=== PATIENT | female | born 1965 | race African-American/Black ===

== ENCOUNTER 2020-06-10 17:45 | Inpatient (IN) | payer OTHER ==
[~2020-06-10] VITALS: Ht 162.6 cm; Wt 59.0 kg
--- NOTE | 2020-06-10 18:24 | Emergency Room Report ---
History of Present Illness General Chief Complaint: General Complaint Source: Patient Present Illness HPI Disclaimer: Please note that this report is being documented using DRAGON technology. This can lead to erroneous entry secondary to incorrect interpretation by the dictating instrument. HPI: 55-year-old female history of hypertension presents for generalized weakness. She states she has been feeling rundown and generally weak for a few days. Denies pain of any kind. Denies fever, chills, nausea, vomiting, diarrhea, dysuria, hematuria. Reports a nonproductive cough which is been present for some time but cannot specify how long. Sometimes present with mucus. She does smoke. Drinks alcohol regularly but states she did not have any today. Denies drug use. 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 EOMI. Cardiovascular: RRR. S1 and S2 normal. No murmur appreciated Resp: Normal work of breathing. No cough, wheezing or crackles appreciated Abdomen: Abdomen is soft, nondistended. Nontender. Firm stool in rectal vault. No blood. No melena. Skin: Intact. No abrasions, laceration or rash over the exposed skin MSK: Normal tone and bulk. Moving all extremities. No obvious deformity. Neuro: Awake and alert. Mentating appropriately. Procedures Critical Care Time Critical Care Time Total critical care time: Approximately 45 minutes Due to a high probability of clinically significant, life threatening deterioration, the patient required the highest level of preparedness to intervene emergently and I personally spent this critical care time directly and personally managing the patient. This critical care time included obtaining a history, examining the patient, pulse oximetry, ordering and reviewing studies, ordering treatments, evaluating response to treatment and updating management plan as needed, frequent reassessment and discussion with other providers as well as arranging for ultimate disposition. This critical to care time was performed to assess and manage the high probability of life-threatening deterioration that could result in multiorgan failure. This critical care time is separate from the separately billable procedures and treating other patients. Medical Decision Making Diagnostic Impression: Primary Impression: Anemia Additional Impression: Hypokalemia ER Course 55-year-old female presents for generalized weakness. Differential includes not limited to dehydration, electrolyte abnormality, occult ischemia, UTI, alcohol use, drug use, pneumonia, viral syndrome among others. EKG is nonischemic. Chest x-ray does not show obvious infiltrate. Patient found to be anemic with a hemoglobin of 7.4. Is a macrocytic anemia. Patient states she takes vitamins and has never had an issue with anemia. Denies melena, hematochezia or bleeding of any kind. Denies prior transfusions. We will transfuse blood and patient will require supplementation potassium as well as her potassium level is low. Remainder labs within normal limits. Will arrange for admission. Laboratory Tests Test 06/10/20 18:39 White Blood Count 5.9 K/UL (4.8-10.8) Red Blood Count 2.24 M/UL (4.20-5.40) L Hemoglobin 7.4 G/DL (12.0-16.0) L Hematocrit 22.5 % (37.0-47.0) L Mean Corpuscular Volume 101 FL (80-99) H Mean Corpuscular Hemoglobin 33.2 PG (27.0-31.0) H Mean Corpuscular Hemoglobin Concent 33.0 G/DL (32.0-36.0) Red Cell Distribution Width 18.0 % (11.6-14.8) H Platelet Count 200 K/UL (150-450) Mean Platelet Volume 6.3 FL (6.5-10.1) L Neutrophils (%) (Auto) % (45.0-75.0) Lymphocytes (%) (Auto) % (20.0-45.0) Monocytes (%) (Auto) % (1.0-10.0) Eosinophils (%) (Auto) % (0.0-3.0) Basophils (%) (Auto) % (0.0-2.0) Differential Total Cells Counted 100 Neutrophils % (Manual) 69 % (45-75) Lymphocytes % (Manual) 26 % (20-45) Monocytes % (Manual) 5 % (1-10) Eosinophils % (Manual) 0 % (0-3) Basophils % (Manual) 0 % (0-2) Band Neutrophils 0 % (0-8) Platelet Estimate Adequate Platelet Morphology Normal Hypochromasia 1+ Anisocytosis 1+ Macrocytosis 1+ Sodium Level 136 MMOL/L (136-145) Potassium Level 2.5 MMOL/L (3.5-5.1) *L Chloride Level 98 MMOL/L (98-107) Carbon Dioxide Level 22 MMOL/L (21-32) Anion Gap 16 mmol/L (5-15) H Blood Urea Nitrogen 6 mg/dL (7-18) L Creatinine 0.7 MG/DL (0.55-1.30) Estimated Glomerular Filtration Rate > 60 mL/min (>60) Glucose Level 89 MG/DL (74-106) Calcium Level 8.4 MG/DL (8.5-10.1) L Iron Level Pending Unsaturated Iron Binding Pending Total Bilirubin 1.0 MG/DL (0.2-1.0) Aspartate Amino Transferase (AST) 64 U/L (15-37) H Alanine Aminotransferase (ALT) 41 U/L (12-78) Alkaline Phosphatase 207 U/L (46-116) H Troponin I 0.013 ng/mL (0.000-0.056) Total Protein 5.4 G/DL (6.4-8.2) L Albumin 1.7 G/DL (3.4-5.0) L Globulin 3.7 g/dL Albumin/Globulin Ratio 0.5 (1.0-2.7) L Serum Alcohol < 3 mg/dL EKG Diagnostic Results Troponin ordered: Yes When was troponin ordered?: Jun 10, 2020 EKG Time: 19:01 Rate: bradycardiac Rhythm: NSR ST Segments: no acute changes Other Impression Sinus rhythm, normal axis, normal intervals, no ST segment changes. Rhythm Strip Diag. Results Rhythm Strip Time: 09:01 EP Interpretation: yes Rate: 59 Rhythm: NSR, no PVC's, no ectopy Chest X-Ray Diagnostic Results Chest X-Ray Diagnostic Results : Chest X-Ray Ordered: Yes # of Views/Limited/Complete: 1 View Indication: Other - Weakness EP Interpretation: Yes Interpretation: no consolidation, no effusion, no pneumothorax, no acute ca rdiopulmonary disease Impression: No acute disease Electronically Signed by: Electronically signed by Dr. Carlitos Marley MD Last Vital Signs Date Time Temp Pulse Resp B/P (MAP) Pulse Ox O2 Delivery O2 Flow Rate FiO2 06/10/20 18:02 98.1 78 18 100/70 (80) 98 Room Air Disposition: ADMITTED INPATIENT Condition: Serious Carliots Marley MD Jun 10, 2020 18:24
[2020-06-10 19:05] LABS: HEMATOCRIT 22.5 % (37.0-47.0); HEMOGLOBIN 7.4 G/DL (12.0-16.0); MEAN CORPUSCULAR VOLUME 101 FL (80-99); PLATELET COUNT 200 K/UL (150-450); RED BLOOD COUNT 2.24 M/UL (4.20-5.40); WHITE BLOOD COUNT 5.9 K/UL (4.8-10.8)
[2020-06-10 19:21] LABS: ALANINE AMINOTRANSFERASE 41 U/L (12-78); ALBUMIN 1.7 G/DL (3.4-5.0); ALBUMIN/GLOBULIN RATIO 0.5 (1.0-2.7); ALKALINE PHOSPHATASE 207 U/L (46-116); ANION GAP 16 mmol/L (5-15); ASPARTATE AMINO TRANSFERASE 64 U/L (15-37); BLOOD UREA NITROGEN 6 mg/dL (7-18); CALCIUM 8.4 MG/DL (8.5-10.1); CARBON DIOXIDE 22 MMOL/L (21-32); CHLORIDE 98 MMOL/L (98-107); CREATININE 0.7 MG/DL (0.55-1.30); SODIUM 136 MMOL/L (136-145)
[2020-06-10 19:23] LABS: POTASSIUM 2.5 MMOL/L (3.5-5.1)
--- NOTE | 2020-06-10 19:28 | NUR ---
55-year-old female history of hypertension presents for generalized weakness. She states she has been feeling rundown and generally weak for a few days. Denies pain of any kind. Denies fever, chills, nausea, vomiting, diarrhea, dysuria, hematuria. Reports a nonproductive cough which is been present for some time but cannot specify how long. Sometimes present with mucus. She does smoke. Drinks alcohol regularly but states she did not have any today. Denies drug use. PMH: Hypertension
[2020-06-10 21:33] VITALS: BP 110/68
[2020-06-10 21:52] LABS: % IRON SATURATION 82 % (15-50); IRON 83 ug/dL (50-175); TOTAL IRON BINDING CAPACITY 101 ug/dL (250-450)
--- NOTE | 2020-06-10 22:05 | NUR ---
ED Nurse Note: Caroline brought in for generalized weakness, admitted to telemtry for anemia and hypokalemia, all labs sent, patient is AOx4, ambulatory, tachycardic, all other vitals stable, patient sent to floor with all personal belongings, refused to allow me to count money, all belongings listed, form signed by patient and RN, report given to MAK Torres RN informed that patient was in room MAK Torres was not present when patient arrived to floor, patient was placed in bed rails up, stable no complaints
--- NOTE | 2020-06-10 23:08 | NUR ---
NURSE NOTES: Received patient in bed, awake, alert, oriented x4, able to make her needs known, IV site is clean dry and intact. Oriented patient to the room, call light within reach, bed is lowered, locked, alarm is on. Patient can ambulate with steady gate. Belongings list been verified, signed for, patient refused for her money to be counted. Reached out to MD for admit orders. Will continue to monitor for comfort and safety.
[2020-06-11 00:07] VITALS: BP 110/78
--- NOTE | 2020-06-11 00:55 | NUR ---
received admit orders from Dr Kerr, per MD consult with Dr Solares about blood transfusions. Attempted multiple times to reach Dr Solares, unsuccessfully. CN was made aware.
[2020-06-11 04:13] VITALS: BP 100/74
--- NOTE | 2020-06-11 06:24 | Consultation ---
History of Present Illness General Chief Complaint: General Complaint Present Illness Allergies: Coded Allergies: No Known Allergies (Unverified , 06/10/20) Patient History Healthcare decision maker Resuscitation status Advanced Directive on File Physical Exam Last 24 Hour Vital Signs Date Time Temp Pulse Resp B/P (MAP) Pulse Ox O2 Delivery O2 Flow Rate FiO2 06/11/20 04:14 68 06/11/20 04:13 98.5 79 20 100/74 (83) 97 06/11/20 00:10 86 06/11/20 00:07 97.1 74 18 110/78 (89) 98 06/10/20 23:45 Room Air 06/10/20 21:33 98.1 102 20 110/68 98 Room Air 06/10/20 19:25 Room Air 06/10/20 18:02 98.1 78 18 100/70 (80) 98 Room Air Laboratory Tests Test 06/10/20 18:39 06/10/20 21:46 White Blood Count 5.9 K/UL (4.8-10.8) Red Blood Count 2.24 M/UL (4.20-5.40) L Hemoglobin 7.4 G/DL (12.0-16.0) L Hematocrit 22.5 % (37.0-47.0) L Mean Corpuscular Volume 101 FL (80-99) H Mean Corpuscular Hemoglobin 33.2 PG (27.0-31.0) H Mean Corpuscular Hemoglobin Concent 33.0 G/DL (32.0-36.0) Red Cell Distribution Width 18.0 % (11.6-14.8) H Platelet Count 200 K/UL (150-450) Mean Platelet Volume 6.3 FL (6.5-10.1) L Neutrophils (%) (Auto) % (45.0-75.0) Lymphocytes (%) (Auto) % (20.0-45.0) Monocytes (%) (Auto) % (1.0-10.0) Eosinophils (%) (Auto) % (0.0-3.0) Basophils (%) (Auto) % (0.0-2.0) Differential Total Cells Counted 100 Neutrophils % (Manual) 69 % (45-75) Lymphocytes % (Manual) 26 % (20-45) Monocytes % (Manual) 5 % (1-10) Eosinophils % (Manual) 0 % (0-3) Basophils % (Manual) 0 % (0-2) Band Neutrophils 0 % (0-8) Platelet Estimate Adequate Platelet Morphology Normal Hypochromasia 1+ Anisocytosis 1+ Macrocytosis 1+ Sodium Level 136 MMOL/L (136-145) Potassium Level 2.5 MMOL/L (3.5-5.1) *L Chloride Level 98 MMOL/L (98-107) Carbon Dioxide Level 22 MMOL/L (21-32) Anion Gap 16 mmol/L (5-15) H Blood Urea Nitrogen 6 mg/dL (7-18) L Creatinine 0.7 MG/DL (0.55-1.30) Estimat Glomerular Filtration Rate > 60 mL/min (>60) Glucose Level 89 MG/DL (74-106) Calcium Level 8.4 MG/DL (8.5-10.1) L Iron Level 83 ug/dL (50-175) Total Iron Binding Capacity 101 ug/dL (250-450) L Percent Iron Saturation 82 % (15-50) H Unsaturated Iron Binding 18 ug/dL (112-346) L Total Bilirubin 1.0 MG/DL (0.2-1.0) Aspartate Amino Transf (AST/SGOT) 64 U/L (15-37) H Alanine Aminotransferase (ALT/SGPT) 41 U/L (12-78) Alkaline Phosphatase 207 U/L (46-116) H Troponin I 0.013 ng/mL (0.000-0.056) Total Protein 5.4 G/DL (6.4-8.2) L Albumin 1.7 G/DL (3.4-5.0) L Globulin 3.7 g/dL Albumin/Globulin Ratio 0.5 (1.0-2.7) L Serum Alcohol < 3 mg/dL Stool Occult Blood Negative (NEGATIVE) Height (Feet): 5 Height (Inches): 4.00 Weight (Pounds): 130 Assessment/Plan Assessment/Plan: Hematology Consultation REQ : Tesha Ward RFC: Anemia eval DOS: 06/11/2020 ID 55-year-old female history of hypertension presents for generalized weakness. She states she has been feeling rundown and generally weak for a few days. Denies pain of any kind. Denies fever, chills, nausea, vomiting, diarrhea, dysuria, hematuria. Reports a nonproductive cough which is been present for some time but cannot specify how long. Sometimes present with mucus. She does smoke. Drinks alcohol regularly but states she did not have any today. Denies drug use. noted to have anemia, is now s/p several units of prbc and repeat cbc is pending. 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 EOMI. Cardiovascular: RRR. S1 and S2 normal. No murmur appreciated Resp: Normal work of breathing. No cough, wheezing or crackles appreciated Abdomen: Abdomen is soft, nondistended. Nontender. Skin: Intact. No abrasions, laceration or rash over the exposed skin MSK: Normal tone and bulk. Moving all extremities. No obvious deformity. Neuro: Awake and alert. Mentating appropriately. Labs: reviewed Imaging: Chest X-Ray Ordered: Yes # of Views/Limited/Complete: 1 View Indication: Other - Weakness EP Interpretation: Yes Interpretation: no consolidation, no effusion, no pneumothorax, no acute cardiopulmonary disease Assessment and recs # Anemia r/o gi bleed, thus far occult pending --> per patient does not have any recent bleeding --> hgb 7.4 -> transfuse prn basis --> anemia panel has been reviewed, results pending --> no hemolysis is noted --> 2 units prbc in 06/10 # Hypokalemia --> k has been repleted --> as per renal care # Generalized weakness. --> is likely due to above -> pt as needed and ot # Dvt ppx scds Appreciate consultation and Alon Aden Rn, MD Jun 11, 2020 06:24
--- NOTE | 2020-06-11 07:24 | NUR ---
NURSE HAND-OFF REPORT: Important Events on Shift: received 1 unit PRBC per MD order. Tolerated well, no reaction noted Patient Status: full Diet: NPO Pending Orders: Pending Results/Labs: Pending MD notification: Latest Vital Signs: Temperature 98.5 , Pulse 68 , B/P 100 /74 , Respiratory Rate 20 , O2 SAT 97 , Room Air, O2 Flow Rate . Vital Sign Comment: EKG Rhythm: Sinus Rhythm Rhythm change?: N MD Notified?: - MD Response: Latest Ortiz Fall Score: 20 Fall Risk: Low Risk Safety Measures: Call light Within Reach, Bed Alarm Zone 1, Side Rails Side Rails x1, Bed position Low and Locked. Fall Precautions: Report given to Jolynn CORADO
[2020-06-11 07:40] LABS: EOSINOPHILS % (AUTO) 0.7 % (0.0-3.0); HEMATOCRIT 26.7 % (37.0-47.0); LYMPHOCYTES % (AUTO) 40.2 % (20.0-45.0); MEAN CORPUSCULAR VOLUME 96 FL (80-99); MONOCYTES % (AUTO) 11.1 % (1.0-10.0); NEUTROPHILS % (AUTO) 46.9 % (45.0-75.0); PLATELET COUNT 175 K/UL (150-450); RED BLOOD COUNT 2.77 M/UL (4.20-5.40); RED CELL DISTRIBUTION WIDTH 16.3 % (11.6-14.8); WHITE BLOOD COUNT 5.4 K/UL (4.8-10.8)
[2020-06-11 08:00] VITALS: BP 89/61
--- NOTE | 2020-06-11 08:01 | NUR ---
NURSE NOTES: Received patient report from MAK Zhu. Patient is AO x3 awake and able to make needs known. Patient shows no signs of distress or pain at the time. Patient is on room air and shows no signs of respiratory distress. IV is intact and patent. There are no signs of erythema, infiltration, or bleeding. Asked patient about home medications and patient said she does not remember what she takes and has no one to give us a list. Patient is currently NPO. Bed is in the lowest position, call light is within reach, side rails up x3. Will continue to monitor.
[2020-06-11 08:09] LABS: ALANINE AMINOTRANSFERASE 35 U/L (12-78); ALBUMIN 1.5 G/DL (3.4-5.0); ALBUMIN/GLOBULIN RATIO 0.5 (1.0-2.7); ALKALINE PHOSPHATASE 175 U/L (46-116); ANION GAP 12 mmol/L (5-15); ASPARTATE AMINO TRANSFERASE 49 U/L (15-37); BLOOD UREA NITROGEN 8 mg/dL (7-18); CALCIUM 8.1 MG/DL (8.5-10.1); CARBON DIOXIDE 26 MMOL/L (21-32); CHLORIDE 103 MMOL/L (98-107); CREATININE 0.6 MG/DL (0.55-1.30); SODIUM 140 MMOL/L (136-145)
[2020-06-11 08:11] LABS: POTASSIUM 2.5 MMOL/L (3.5-5.1)
--- NOTE | 2020-06-11 08:30 | General Progress Note ---
Subjective Allergies: Coded Allergies: No Known Allergies (Unverified , 06/10/20) Objective Last 24 Hour Vital Signs Date Time Temp Pulse Resp B/P (MAP) Pulse Ox O2 Delivery O2 Flow Rate FiO2 06/11/20 04:14 68 06/11/20 04:13 98.5 79 20 100/74 (83) 97 06/11/20 00:10 86 06/11/20 00:07 97.1 74 18 110/78 (89) 98 06/10/20 23:45 Room Air 06/10/20 21:33 98.1 102 20 110/68 98 Room Air 06/10/20 19:25 Room Air 06/10/20 18:02 98.1 78 18 100/70 (80) 98 Room Air Laboratory Tests 06/10/20 18:39: White Blood Count 5.9, Red Blood Count 2.24L, Hemoglobin 7.4L, Hematocrit 22.5L, Mean Corpuscular Volume 101H, Mean Corpuscular Hemoglobin 33.2H, Mean Cor puscular Hemoglobin Concent 33.0, Red Cell Distribution Width 18.0H, Platelet Count 200, Mean Platelet Volume 6.3L, Neutrophils (%) (Auto) , Lymphocytes (%) (Auto) , Monocytes (%) (Auto) , Eosinophils (%) (Auto) , Basophils (%) (Auto) , Differential Total Cells Counted 100, Neutrophils % (Manual) 69, Lymphocytes % (Manual) 26, Monocytes % (Manual) 5, Eosinophils % (Manual) 0, Basophils % (Manual) 0, Band Neutrophils 0, Platelet Estimate Adequate, Platelet Morphology Normal, Hypochromasia 1+, Anisocytosis 1+, Macrocytosis 1+, Sodium Level 136, Potassium Level 2.5*L, Chloride Level 98, Carbon Dioxide Level 22, Anion Gap 16H , Blood Urea Nitrogen 6L, Creatinine 0.7, Estimat Glomerular Filtration Rate > 60, Glucose Level 89, Calcium Level 8.4L, Iron Level 83, Total Iron Binding Capacity 101L, Percent Iron Saturation 82H, Unsaturated Iron Binding 18L, Total Bilirubin 1.0, Aspartate Amino Transf (AST/SGOT) 64H, Alanine Aminotransferase (ALT/SGPT) 41, Alkaline Phosphatase 207H, Troponin I 0.013, Total Protein 5.4L, Albumin 1.7L, Globulin 3.7, Albumin/Globulin Ratio 0.5L, Serum Alcohol < 3 06/10/20 21:46: Stool Occult Blood Negative 06/11/20 06:11: White Blood Count 5.4, Red Blood Count 2.77L, Hemoglobin 9.0L, Hematocrit 26.7L, Mean Corpuscular Volume 96, Mean Corpuscular Hemoglobin 32.3H, Mean Corpuscular Hemoglobin Concent 33.6, Red Cell Distribution Width 16.3H, Platelet Count 175, Mean Platelet Volume 6.5, Neutrophils (%) (Auto) 46.9, Lymphocytes (%) (Auto) 40.2, Monocytes (%) (Auto) 11.1H, Eosinophils (%) (Auto) 0.7, Basophils (%) (Auto) 1.0, Sodium Level 140, Potassium Level 2.5*L, Chloride Level 103, Carbon Dioxide Level 26, Anion Gap 12, Blood Urea Nitrogen 8, Creatinine 0.6, Estimat Glomerular Filtration Rate > 60, Glucose Level 63L, Calcium Level 8.1L, Total Bilirubin 1.0, Aspartate Amino Transf (AST/SGOT) 49H, Alanine Aminotransferase (ALT/SGPT) 35, Alkaline Phosphatase 175H, Total Protein 4.8L, Albumin 1.5L, Globulin 3.3, Albumin/Globulin Ratio 0.5L, Ferritin [Pending], Vitamin B12 Level [Pending], Folate [Pending] Height (Feet): 5 Height (Inches): 4.00 Weight (Pounds): 130 Assessment/Plan Assessment/Plan: GI CONSULT Assessment - Anemia - OB (-) stools - H/o HTN - Hypokalemia Recommendations - replace K IV and PO - follow H&H - EGD/colon later this week, once K level improved Thank you Ezekiel Quintana MD Jun 11, 2020 08:30
[2020-06-11] MEDS: D5 1/2NS w/KCl 20mEq 1,000 ML IV SCH ×2 (09:26→23:42)
[2020-06-11 09:48] LABS: PHOSPHORUS 2.3 MG/DL (2.5-4.9)
[2020-06-11] MEDS ORDERED: Acetaminophen 500mg (ES) tab ORAL PRN (11:30)
[2020-06-11 12:00] VITALS: BP 104/74
--- NOTE | 2020-06-11 12:44 | History and Physical Report ---
DATE OF ADMISSION: 06/10/2020 HISTORY OF PRESENT ILLNESS: The patient is admitted for anemia and also severe hypokalemia. The patient states that she fell but did not pass out about two days ago. The patient was complaining of weakness and fatigue and was found to have severe anemia and severe hypokalemia. Denies any rectal bleeding. Denies headache. Denies fever or chills. Denies shortness of breath. Denies cough. Denies history of rectal bleeding. Denies history of . PAST MEDICAL HISTORY: None. PAST SURGICAL HISTORY: None. MEDICATIONS: None. ALLERGIES: No known allergies. FAMILY HISTORY: Noncontributory. SOCIAL HISTORY: The patient has history of smoking, has history of drug abuse. Denies history of alcohol abuse. REVIEW OF SYSTEMS: HEENT: Denies headaches. RESPIRATORY: Denies shortness of breath. Denies cough. CARDIOVASCULAR: Denies chest pain. GASTROINTESTINAL: Denies rectal bleeding. Denies abdominal pain. Denies nausea, vomiting. EXTREMITIES: Denies pain. CENTRAL NERVOUS SYSTEM: Reports generalized weakness and fall due to presyncope and weakness. Denies headache. PHYSICAL EXAMINATION: VITAL SIGNS: Temperature 97.1, pulse 74, blood pressure 110/78. HEENT: PERRLA. CHEST: Clear to auscultation CARDIOVASCULAR: Regular rate and rhythm. No murmurs or extra sounds. GASTROINTESTINAL: Soft, nontender, nondistended. No organomegaly. EXTREMITIES: No edema. Dorsalis pedal pulses are present. Has generalized weakness. CENTRAL NERVOUS SYSTEM: Cranial nerves II through XII are intact. Reflexes equal in both sides. LABORATORY AND DIAGNOSTIC DATA: WBC of 5.9, hemoglobin 7.4, platelets of 200. Sodium is 140, potassium of 2.5, BUN of 8, creatinine of 0.6. ASSESSMENT AND PLAN: Severe hypokalemia, severe anemia, status post presyncope, denies history of GI bleed. I have asked Dr. Abraham as well as Dr. Alon Solares, Dr. Mosley to help with the management of the severe hypokalemia and workup of the anemia will also be deferred to Dr. Abraham as well as Dr. Solares. Transfusion per Dr. Solares. Tesha Kerr M.D. DR: Cami JOB#: [id number] CC:
--- NOTE | 2020-06-11 14:13 | Consultation ---
Consult Note Consult Note I am asked to evaluate the patient at the request of for fluid and electrolyte management HPI: 55-year-old female history of hypertension presents for generalized weakness. She states she has been feeling rundown and generally weak for a few days. Denies pain of any kind. Denies fever, chills, nausea, vomiting, diarrhea, dysuria, hematuria. Reports a nonproductive cough which is been present for some time but cannot specify how long. Sometimes present with mucus. She does smoke. Drinks alcohol regularly but states she did not have any today. Denies drug use. 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 HEAD AND NECK: No JVD. LUNGS: Clear. CARDIOVASCULAR: Regular S1 and S2 with no gallop or murmur. ABDOMEN: Soft. EXTREMITIES: No pitting edema. LABORATORY DATA: Labs show white count of 6.1, hemoglobin was low at 7.4, currently 8.4, and platelet count is 207. Sodium 137, potassium 4.0, BUN of 4, creatinine 0.7. Glucose is negative. BNP 336. The patient's troponin was negative. . Assessment/Plan Severe hypokalemia Severe anemia Malnutrition, hypoalbuminemia Low phosphorus low magnesium Replacement of the potassium, magnesium, phosphorus per order Urine for analysis and urine for tox screen Replace folate and thiamine orally Continue to monitor electrolytes and renal parameters Per orders Byron Mosley MD Jun 11, 2020 14:12
--- NOTE | 2020-06-11 14:45 | NUR ---
NURSE NOTES: Patient has been asked since the AM to produce urine for urinalysis but she has not been able to yet.
--- NOTE | 2020-06-11 15:45 | Cardiology Report ---
APPROVED REPORT EKG Measurement Heart [id number] <Conclusion> Sinus bradycardia Abnormal ECG
[2020-06-11 16:00] VITALS: BP 101/73
[2020-06-11] MEDS ORDERED: Potassium Phosphate 20 MM in NS 275 ML IV ONE (16:00)
--- NOTE | 2020-06-11 16:13 | Diagnostic Imaging Report ---
Indication: Cough Technique: One view of the chest Comparison: none Findings: A calcified granuloma is seen in the right mid to lower lung. The lungs and pleural spaces are clear otherwise. The heart size is normal. Impression: Evidence old granulomatous disease No acute process
[2020-06-11] MEDS: Thiamine 100mg tab ORAL SCH (16:43)
[2020-06-11 17:11] LABS: APPEARANCE,URINE CLOUDY; BILIRUBIN, URINE 2+ (NEGATIVE); COLOR,URINE BROWN; GLUCOSE, URINE (UA) NEGATIVE (NEGATIVE); KETONES,URINE 3+ (NEGATIVE); LEUKOCYTE ESTERASE ,URINE 2+ (NEGATIVE); NITRITE,URINE POSITIVE (NEGATIVE); PH,URINE 6 (4.5-8.0); PROTEIN,URINE 2+ (NEGATIVE); UROBILINOGEN,URINE 12 MG/DL (0.0-1.0)
[2020-06-11 18:13] LABS: ANION GAP 9 mmol/L (5-15); BLOOD UREA NITROGEN 8 mg/dL (7-18); CALCIUM 8.2 MG/DL (8.5-10.1); CARBON DIOXIDE 26 MMOL/L (21-32); CHLORIDE 99 MMOL/L (98-107); CREATININE 0.6 MG/DL (0.55-1.30); POTASSIUM 3.7 MMOL/L (3.5-5.1); SODIUM 134 MMOL/L (136-145)
--- NOTE | 2020-06-11 18:29 | Consultation ---
DATE OF CONSULTATION: 06/11/2020 GASTROENTEROLOGY CONSULTATION CONSULTING PHYSICIAN: Ezekiel Abraham MD CHIEF COMPLAINT: I was asked to see this patient by Dr. Tesha West for evaluation of severe anemia. HISTORY OF PRESENT ILLNESS: The patient is a 55-year-old woman who was brought into the hospital due to weakness. Her potassium is extremely low and she is being replaced. She also has been found to have significant anemia. She denies any abdominal pain, nausea, vomiting, heartburn, or hematochezia. She has had decreased oral intake for a few days. She has not had a colonoscopy or endoscopy in the past. PAST MEDICAL HISTORY: Otherwise unremarkable. FAMILY HISTORY: Positive for colon cancer in brother. SOCIAL HISTORY: Patient smokes occasionally and drinks occasionally. ALLERGIES: None. REVIEW OF SYSTEMS: Otherwise negative. PHYSICAL EXAMINATION: GENERAL: A thin woman, seen in her room. HEENT: Normocephalic and atraumatic. NECK: Supple. CHEST: Clear to auscultation. CARDIOVASCULAR: Revealed a regular rate. ABDOMEN: Soft, nontender. EXTREMITIES: Revealed no edema. LABORATORY DATA: Noted. ASSESSMENT: This patient presents with severe hypokalemia, which is likely cause of her weakness. It should be replaced both intravenous and orally and I will start this. From a gastrointestinal standpoint, she does need endoscopy and colonoscopy to evaluate her complete GI tract. This is more important especially with family history of colon cancer in brother. Once the patient has been electrolyte repleted and stabilized, then she can undergo gastrointestinal preparation for endoscopy and colonoscopy. This can be done either as an inpatient or as an outpatient. RECOMMENDATIONS: Per above discussion and per orders written in the chart. Thank you for asking me to participate in the care of this patient. Ezekiel Abraham M.D. DR: TONY JOB#: [id number] CC:
--- NOTE | 2020-06-11 19:29 | NUR ---
NURSE HAND-OFF REPORT: Important Events on Shift:[Patient got Magnesium and Potasium as ordered. Urine collected for Urinalysis. New IV started] Patient Status: [Full code] Diet: Regular[] Pending Orders: [] Pending Results/Labs:[] Pending MD notification:[] Latest Vital Signs: Temperature 97.7 , Pulse 78 , B/P 101 /73 , Respiratory Rate 20 , O2 SAT 100 , Room Air, O2 Flow Rate . Vital Sign Comment: [] EKG Rhythm: Sinus Rhythm Rhythm change?: N MD Notified?: - MD Response: Latest Ortiz Fall Score: 20 Fall Risk: Low Risk Safety Measures: Call light Within Reach, Bed Alarm Zone 2, Side Rails Side Rails x2, Bed position Low and Locked. Fall Precautions: Patient Fall Education Report given to [MAK Arboleda].
--- NOTE | 2020-06-11 19:33 | NUR ---
NURSE NOTES: Received report from MAK Neil. Pt is awake, a/ox4, no signs of acute distress noted. No complaints of pain. SR on cardiac surgeon. RR even, unlabored on RA. L FA 22g intact and running Mag 1g. Linens and gowns changed. HOb elevated, side rails x2, call light within reach, bed locked and in lowest position. Will continue plan of care. Will continue to monitor.
[2020-06-11 20:00] VITALS: BP 100/63
--- NOTE | 2020-06-11 22:02 | NUR ---
NURSE NOTES: Assisted pt to the restroom where she had one large brown BM. Will continue to monitor.
[2020-06-12] VITALS: BP 100/69
[2020-06-12 04:00] VITALS: BP 110/64
--- NOTE | 2020-06-12 06:36 | Hematology/Onc Progress Note ---
Assessment/Plan Assessment/Plan Assessment and recs # Anemia r/o gi bleed, thus far occult pending --> per patient does not have any recent bleeding --> hgb 7.4-->8.7 -> transfuse prn basis --> anemia panel has been reviewed, results pending --> no hemolysis is noted --> 2 units prbc in 06/10 # Hypokalemia --> k has been repleted --> as per renal care # Generalized weakness. --> is likely due to above -> pt as needed and ot # Dvt ppx scds Appreciate consultation and dw Rn Subjective Constitutional: Denies: no symptoms, chills, fever, malaise, weakness, other HEENT: Denies: no symptoms, eye pain, blurred vision, tearing, double vision, ear pain, ear discharge, nose pain, nose congestion, throat pain, throat swelling, mouth pain, mouth swelling, other Cardiovascular: Denies: no symptoms, chest pain, edema, irregular heart rate, lightheadedness, palpitations, syncope, other Respiratory: Denies: no symptoms, cough, shortness of breath, SOB with excertion, SOB at rest, sputum, wheezing, other Gastrointestinal/Abdominal: Denies: no symptoms, abdomen distended, abdominal pain, black stools, tarry stools, blood in stool, constipated, diarrhea, difficulty swallowing, nausea, poor appetite, poor fluid intake, rectal bleeding, vomiting, other Endocrine: Denies: no symptoms, excessive sweating, flushing, intolerance to cold, intolerance to heat, increased hunger, increased thirst, increased urine, unexplained weight gain, unexplained weight loss, other Hematologic/Lymphatic: Denies: no symptoms, anemia, easy bleeding, easy bruising, adenopathy, other Allergies: Coded Allergies: No Known Allergies (Unverified , 06/10/20) Subjective 06/12 meds noted, no bleeding, ferritin 987, hgb better Objective Objective Current Medications Medications (Trade) Dose Ordered Sig/He Route PRN Reason Start Time Stop Time Status Last Admin Dose Admin Acetaminophen (Tylenol) 500 mg Q6H PRN ORAL Pain Scale (3-5) 06/11/20 11:30 07/11/20 11:29 06/11/20 12:56 Dextrose/ Electrolytes 1,000 ml @ 75 mls/hr [id number] IV 06/11/20 10:00 07/11/20 09:59 06/11/20 23:42 Folic Acid (Folate) 3 mg DAILY ORAL 06/11/20 16:00 07/11/20 15:59 06/11/20 16:43 Thiamine HCl (Vitamin B1) 100 mg DAILY ORAL 06/11/20 16:00 07/11/20 15:59 06/11/20 16:43 Last 24 Hour Vital Signs Date Time Temp Pulse Resp B/P (MAP) Pulse Ox O2 Delivery O2 Flow Rate FiO2 06/12/20 04:00 74 06/12/20 04:00 97.8 74 18 110/64 (79) 98 06/12/20 00:00 96.8 76 18 100/69 (79) 100 06/12/20 00:00 69 06/11/20 21:00 Room Air 06/11/20 20:00 98.2 74 20 100/63 (75) 97 06/11/20 20:00 68 06/11/20 16:00 97.7 74 20 101/73 (82) 100 06/11/20 16:00 78 06/11/20 13:26 97.6 06/11/20 12:00 97.6 77 20 104/74 (84) 100 06/11/20 12:00 76 06/11/20 09:00 Room Air 06/11/20 08:00 97.8 62 20 89/61 (70) 100 06/11/20 08:00 66 06/11/20 04:14 68 06/11/20 04:13 98.5 79 20 100/74 (83) 97 06/11/20 00:10 86 06/11/20 00:07 97.1 74 18 110/78 (89) 98 06/10/20 23:45 Room Air 06/10/20 21:33 98.1 102 20 110/68 98 Room Air 06/10/20 19:25 Room Air 06/10/20 18:02 98.1 78 18 100/70 (80) 98 Room Air Intake and Output 06/11/20 06/12/20 19:00 07:00 Intake Total 175 ml 870 ml Balance 175 ml 870 ml Intake Oral 100 ml 120 ml IV Total 75 ml 750 ml # Voids 1 2 # Bowel Movements 1 Labs Test 06/10/20 18:39 06/10/20 21:46 06/11/20 06:11 06/11/20 16:00 White Blood Count 5.9 K/UL (4.8-10.8) 5.4 K/UL (4.8-10.8) Red Blood Count 2.24 M/UL (4.20-5.40) 2.77 M/UL (4.20-5.40) Hemoglobin 7.4 G/DL (12.0-16.0) 9.0 G/DL (12.0-16.0) Hematocrit 22.5 % (37.0-47.0) 26.7 % (37.0-47.0) Mean Corpuscular Volume 101 FL (80-99) 96 FL (80-99) Mean Corpuscular Hemoglobin 33.2 PG (27.0-31.0) 32.3 PG (27.0-31.0) Mean Corpuscular Hemoglobin Concent 33.0 G/DL (32.0-36.0) 33.6 G/DL (32.0-36.0) Red Cell Distribution Width 18.0 % (11.6-14.8) 16.3 % (11.6-14.8) Platelet Count 200 K/UL (150-450) 175 K/UL (150-450) Mean Platelet Volume 6.3 FL (6.5-10.1) 6.5 FL (6.5-10.1) Neutrophils (%) (Auto) % (45.0-75.0) 46.9 % (45.0-75.0) Lymphocytes (%) (Auto) % (20.0-45.0) 40.2 % (20.0-45.0) Monocytes (%) (Auto) % (1.0-10.0) 11.1 % (1.0-10.0) Eosinophils (%) (Auto) % (0.0-3.0) 0.7 % (0.0-3.0) Basophils (%) (Auto) % (0.0-2.0) 1.0 % (0.0-2.0) Differential Total Cells Counted 100 Neutrophils % (Manual) 69 % (45-75) Lymphocytes % (Manual) 26 % (20-45) Monocytes % (Manual) 5 % (1-10) Eosinophils % (Manual) 0 % (0-3) Basophils % (Manual) 0 % (0-2) Band Neutrophils 0 % (0-8) Platelet Estimate Adequate Platelet Morphology Normal Hypochromasia 1+ Anisocytosis 1+ Macrocytosis 1+ Sodium Level 136 MMOL/L (136-145) 140 MMOL/L (136-145) Potassium Level 2.5 MMOL/L (3.5-5.1) 2.5 MMOL/L (3.5-5.1) Chloride Level 98 MMOL/L (98-107) 103 MMOL/L (98-107) Carbon Dioxide Level 22 MMOL/L (21-32) 26 MMOL/L (21-32) Anion Gap 16 mmol/L (5-15) 12 mmol/L (5-15) Blood Urea Nitrogen 6 mg/dL (7-18) 8 mg/dL (7-18) Creatinine 0.7 MG/DL (0.55-1.30) 0.6 MG/DL (0.55-1.30) Estimat Glomerular Filtration Rate > 60 mL/min (>60) > 60 mL/min (>60) Glucose Level 89 MG/DL (74-106) 63 MG/DL (74-106) Calcium Level 8.4 MG/DL (8.5-10.1) 8.1 MG/DL (8.5-10.1) Iron Level 83 ug/dL (50-175) Total Iron Binding Capacity 101 ug/dL (250-450) Percent Iron Saturation 82 % (15-50) Unsaturated Iron Binding 18 ug/dL (112-346) Total Bilirubin 1.0 MG/DL (0.2-1.0) 1.0 MG/DL (0.2-1.0) Aspartate Amino Transf (AST/SGOT) 64 U/L (15-37) 49 U/L (15-37) Alanine Aminotransferase (ALT/SGPT) 41 U/L (12-78) 35 U/L (12-78) Alkaline Phosphatase 207 U/L (46-116) 175 U/L (46-116) Troponin I 0.013 ng/mL (0.000-0.056) Total Protein 5.4 G/DL (6.4-8.2) 4.8 G/DL (6.4-8.2) Albumin 1.7 G/DL (3.4-5.0) 1.5 G/DL (3.4-5.0) Globulin 3.7 g/dL 3.3 g/dL Albumin/Globulin Ratio 0.5 (1.0-2.7) 0.5 (1.0-2.7) Serum Alcohol < 3 mg/dL Stool Occult Blood Negative (NEGATIVE) Phosphorus Level 2.3 MG/DL (2.5-4.9) Magnesium Level 1.3 MG/DL (1.8-2.4) Ferritin 987 NG/ML (8-388) Vitamin B12 Level 1907 PG/ML (193-986) Folate 5.0 NG/ML (8.6-58.9) Urine Color Brown Urine Appearance Cloudy Urine pH 6 (4.5-8.0) Urine Specific [place] 1.010 (1.005-1.035) Urine Protein 2+ (NEGATIVE) Urine Glucose (UA) Negative (NEGATIVE) Urine Ketones 3+ (NEGATIVE) Urine Blood 2+ (NEGATIVE) Urine Nitrite Positive (NEGATIVE) Urine Bilirubin 2+ (NEGATIVE) Urine Ictotest Positive (NEGATIVE) Urine Urobilinogen 12 MG/DL (0.0-1.0) Urine Leukocyte Esterase 2+ (NEGATIVE) Urine RBC 2-4 /HPF (0 - 2) Urine WBC 5-10 /HPF (0 - 2) Urine Squamous Epithelial Cells Moderate /LPF (NONE/OCC) Urine Amorphous Sediment Moderate /LPF (NONE) Urine Bacteria Moderate /HPF (NONE) Urine Opiates Screen Negative (NEGATIVE) Urine Barbiturates Screen Negative (NEGATIVE) Phencyclidine (PCP) Screen Negative (NEGATIVE) Urine Amphetamines Screen Negative (NEGATIVE) Urine Benzodiazepines Screen Negative (NEGATIVE) Urine Cocaine Screen Negative (NEGATIVE) Urine Marijuana (THC) Screen Negative (NEGATIVE) Test 06/11/20 17:20 06/12/20 05:20 Sodium Level 134 MMOL/L (136-145) Potassium Level 3.7 MMOL/L (3.5-5.1) Chloride Level 99 MMOL/L (98-107) Carbon Dioxide Level 26 MMOL/L (21-32) Anion Gap 9 mmol/L (5-15) Blood Urea Nitrogen 8 mg/dL (7-18) Creatinine 0.6 MG/DL (0.55-1.30) Estimat Glomerular Filtration Rate > 60 mL/min (>60) Glucose Level 101 MG/DL (74-106) Calcium Level 8.2 MG/DL (8.5-10.1) Height (Feet): 5 Height (Inches): 4.00 Weight (Pounds): 130 Objective General: Awake and alert, nad HEENT: NC/AT. EOMI. Cardiovascular: RRR. S1 and S2 normal. No murmur appreciated Resp: Normal work of breathing. No cough, wheezing or crackles appreciated Abdomen: Abdomen is soft, nondistended. Nontender. Skin: Intact. No abrasions, laceration or rash over the exposed skin MSK: Normal tone and bulk. Moving all extremities. No obvious deformity. Neuro: Awake and alert. Mentating appropriately. Alon Solares MD Jun 12, 2020 06:36
[2020-06-12 06:54] LABS: BASOPHILS % (AUTO) 0.6 % (0.0-2.0); EOSINOPHILS % (AUTO) 1.1 % (0.0-3.0); HEMATOCRIT 25.4 % (37.0-47.0); HEMOGLOBIN 8.7 G/DL (12.0-16.0); LYMPHOCYTES % (AUTO) 34.9 % (20.0-45.0); MEAN CORPUSCULAR VOLUME 94 FL (80-99); MONOCYTES % (AUTO) 9.6 % (1.0-10.0); NEUTROPHILS % (AUTO) 53.8 % (45.0-75.0); PLATELET COUNT 196 K/UL (150-450); RED BLOOD COUNT 2.71 M/UL (4.20-5.40); RED CELL DISTRIBUTION WIDTH 15.9 % (11.6-14.8); WHITE BLOOD COUNT 5.8 K/UL (4.8-10.8)
--- NOTE | 2020-06-12 06:55 | NUR ---
NURSE HAND-OFF REPORT: Important Events on Shift:[No acute events] Patient Status: [Stable] Diet: [Regular] Pending Orders: [] Pending Results/Labs:[] Pending MD notification:[] Latest Vital Signs: Temperature 97.8 , Pulse 74 , B/P 110 /64 , Respiratory Rate 18 , O2 SAT 98 , Room Air, O2 Flow Rate . Vital Sign Comment: [Stable] EKG Rhythm: Sinus Rhythm Rhythm change?: N MD Notified?: - MD Response: Latest Ortiz Fall Score: 20 Fall Risk: Low Risk Safety Measures: Call light Within Reach, Bed Alarm Zone 2, Side Rails Side Rails x2, Bed position Low and Locked. Fall Precautions: Patient Fall Education Report given to [MAK Dubon].
[2020-06-12 06:59] LABS: ALANINE AMINOTRANSFERASE 34 U/L (12-78); ALBUMIN 1.6 G/DL (3.4-5.0); ALBUMIN/GLOBULIN RATIO 0.5 (1.0-2.7); ALKALINE PHOSPHATASE 181 U/L (46-116); ANION GAP 6 mmol/L (5-15); ASPARTATE AMINO TRANSFERASE 49 U/L (15-37); BILIRUBIN,TOTAL 0.9 MG/DL (0.2-1.0); BLOOD UREA NITROGEN 5 mg/dL (7-18); CALCIUM 7.7 MG/DL (8.5-10.1); CARBON DIOXIDE 26 MMOL/L (21-32); CHLORIDE 102 MMOL/L (98-107); CREATININE 0.5 MG/DL (0.55-1.30); POTASSIUM 4.3 MMOL/L (3.5-5.1); SODIUM 134 MMOL/L (136-145)
--- NOTE | 2020-06-12 07:49 | NUR ---
NURSE NOTES: Received report from Nkechi Chirinos RN. Patient sitting in semi-De Anda's position, sleeping, bed in lowest position, side rails up x 3, call light within reach, LFA22 gauge IV running D5 1/2 NS + 20 KCL@75 cc/hour, in no apparent distress.
[2020-06-12 07:58] LABS: CHOLESTEROL 161 MG/DL (< 200); HDL CHOLESTEROL 29 MG/DL (40-60); PHOSPHORUS 3.1 MG/DL (2.5-4.9); TRIGLYCERIDES 91 MG/DL (30-150)
[2020-06-12 08:00] VITALS: BP 98/73
[2020-06-12] MEDS ORDERED: AMLODIPINE BESYL5 MG ORAL (09:03)
[2020-06-12] MEDS ORDERED: VITAMIN B-1100 MG ORAL (09:03)
[2020-06-12] MEDS ORDERED: MULTIVITAMINS1 EAC2 ORAL (09:03)
[2020-06-12] MEDS ORDERED: OMEPRAZOLE20 M2 ORAL (09:03)
[2020-06-12] MEDS ORDERED: FOLIC ACID1 MG ORAL (09:03)
[2020-06-12] MEDS: Midodrine 10mg tab ORAL SCH ×3 (09:26→17:23)
[2020-06-12] MEDS: Thiamine 100mg tab ORAL SCH (09:26)
--- NOTE | 2020-06-12 09:46 | NUR ---
RADIOLOGY DEPT.,CHEST X-RAY DONE.-P.DYE
--- NOTE | 2020-06-12 11:18 | NUR ---
NURSE NOTES: Provoding albumin IV wide open.
[2020-06-12 12:00] VITALS: BP 103/67
--- NOTE | 2020-06-12 13:31 | Diagnostic Imaging Report ---
Indication: Cough Technique: One view of the chest Comparison: 06/10/2020 Findings: Lungs and pleural spaces are clear. Heart size is normal. No significant change Impression: No acute process
--- NOTE | 2020-06-12 13:45 | Nephrology Progress Note ---
Assessment/Plan Problem List: (1) Hypokalemia (2) Anemia (3) Electrolyte imbalance (4) Malnutrition Assessment Severe hypokalemia Severe anemia Malnutrition, hypoalbuminemia Low phosphorus low magnesium Plan June 12: Labs reviewed. Electrolyte abnormalities , low phosphorus low magnesium addressed. Continue per consultants. Previously: Replacement of the potassium, magnesium, phosphorus per order Urine for analysis and urine for tox screen Replace folate and thiamine orally Continue to monitor electrolytes and renal parameters Per orders Subjective ROS Limited/Unobtainable: No Constitutional: Reports: malaise, weakness Objective Objective Last 24 Hour Vital Signs Date Time Temp Pulse Resp B/P (MAP) Pulse Ox O2 Delivery O2 Flow Rate FiO2 06/12/20 12:00 96.8 67 18 103/67 (79) 100 06/12/20 12:00 63 06/12/20 09:00 Room Air 06/12/20 08:00 75 06/12/20 08:00 97.7 74 18 98/73 (81) 100 06/12/20 04:00 74 06/12/20 04:00 97.8 74 18 110/64 (79) 98 06/12/20 00:00 96.8 76 18 100/69 (79) 100 06/12/20 00:00 69 06/11/20 21:00 Room Air 06/11/20 20:00 98.2 74 20 100/63 (75) 97 06/11/20 20:00 68 06/11/20 16:00 97.7 74 20 101/73 (82) 100 06/11/20 16:00 78 Intake and Output 06/11/20 06/12/20 19:00 07:00 Intake Total 175 ml 945 ml Balance 175 ml 945 ml Intake Oral 100 ml 120 ml IV Total 75 ml 825 ml # Voids 1 2 # Bowel Movements 1 Current Medications Medications (Trade) Dose Ordered Sig/He Route PRN Reason Start Time Stop Time Status Last Admin Dose Admin Acetaminophen (Tylenol) 500 mg Q6H PRN ORAL Pain Scale (3-5) 06/11/20 11:30 07/11/20 11:29 06/11/20 12:56 Albumin Human 500 ml @ 0 mls/hr Q0M IV 06/12/20 08:30 06/12/20 23:59 06/12/20 11:18 Folic Acid (Folate) 3 mg DAILY ORAL 06/11/20 16:00 07/11/20 15:59 06/12/20 09:26 Midodrine (Pro-Amatine) 10 mg THREE TIMES A DAY ORAL 06/12/20 09:00 09/10/20 08:59 06/12/20 09:26 Thiamine HCl (Vitamin B1) 100 mg DAILY ORAL 06/11/20 16:00 07/11/20 15:59 06/12/20 09:26 Laboratory Tests 06/11/20 16:00: Urine Color Brown, Urine Appearance Cloudy, Urine pH 6, Urine Specific [place] 1.010, Urine Protein 2+H, Urine Glucose (UA) Negative, Urine Ketones 3+H, Urine Blood 2+H, Urine Nitrite PositiveH, Urine Bilirubin 2+H, Urine Ictotest Positive, Urine Urobilinogen 12H, Urine Leukocyte Esterase 2+H, Urine RBC 2-4H, Urine WBC 5-10H, Urine Squamous Epithelial Cells ModerateH, Urine Amorphous Sediment ModerateH, Urine Bacteria ModerateH, Urine Opiates Screen Negative, Urine Barbiturates Screen Negative, Phencyclidine (PCP) Screen Negative, Urine A mphetamines Screen Negative, Urine Benzodiazepines Screen Negative, Urine Cocaine Screen Negative, Urine Marijuana (THC) Screen Negative 06/11/20 17:20: Sodium Level 134L, Potassium Level 3.7, Chloride Level 99, Carbon Dioxide Level 26, Anion Gap 9, Blood Urea Nitrogen 8, Creatinine 0.6, Estimat Glomerular Filtration Rate > 60, Glucose Level 101, Calcium Level 8.2L 06/12/20 05:20: Sodium Level 134L, Potassium Level 4.3, Chloride Level 102, Carbon Dioxide Level 26, Anion Gap 6, Blood Urea Nitrogen 5L, Creatinine 0.5L, Estimat Glomerular Filtration Rate > 60, Glucose Level 107H, Calcium Level 7.7L, White Blood Count 5.8, Red Blood Count 2.71L, Hemoglobin 8.7L, Hematocrit 25.4L, Mean Corpuscular Volume 94, Mean Corpuscular Hemoglobin 32.2H, Mean Corpuscular Hemoglobin Concent 34.3, Red Cell Distribution Width 15.9H, Platelet Count 196, Mean Platelet Volume 6.3L, Neutrophils (%) (Auto) 53.8, Lymphocytes (%) (Auto) 34.9, Monocytes (%) (Auto) 9.6, Eosinophils (%) (Auto) 1.1, Basophils (%) (Auto) 0.6, Uric Acid 3.2, Phosphorus Level 3.1, Magnesium Level 2.2, Total Bilirubin 0.9, Aspartate Amino Transf (AST/SGOT) 49H, Alanine Aminotransferase (ALT/SGPT) 34, Alkaline Phosphatase 181H, C-Reactive Protein, Quantitative 0.7, Pro-B-Type Natriuretic Peptide 336H, Total Protein 4.9L, Albumin 1.6L, Globulin 3.3, Albumin/Globulin Ratio 0.5L, Triglycerides Level 91, Cholesterol Level 161, LDL Cholesterol 94, HDL Cholesterol 29L, Cholesterol/HDL Ratio 5.6H, Lipase 100 Height (Feet): 5 Height (Inches): 4.00 Weight (Pounds): 130 General Appearance: no apparent distress, lethargic Cardiovascular: normal rate Respiratory/Chest: decreased breath sounds Abdomen: soft, distended Byron Mosley MD Jun 12, 2020 13:45
--- NOTE | 2020-06-12 15:35 | NUR ---
INSURANCE CLINICALS FAXED TO [facility] PH#[phone] FAX# [phone]
[2020-06-12 16:00] VITALS: BP 99/57
--- NOTE | 2020-06-12 17:25 | NUR ---
NURSE NOTES: Patient is not eating. I have been urging her to eat.
--- NOTE | 2020-06-12 19:31 | General Progress Note ---
Subjective ROS Limited/Unobtainable: Yes Allergies: Coded Allergies: No Known Allergies (Unverified , 06/10/20) Objective Last 24 Hour Vital Signs Date Time Temp Pulse Resp B/P (MAP) Pulse Ox O2 Delivery O2 Flow Rate FiO2 06/12/20 16:00 96.4 68 18 99/57 (71) 100 06/12/20 16:00 67 06/12/20 12:00 96.8 67 18 103/67 (79) 100 06/12/20 12:00 63 06/12/20 09:00 Room Air 06/12/20 08:00 75 06/12/20 08:00 97.7 74 18 98/73 (81) 100 06/12/20 04:00 74 06/12/20 04:00 97.8 74 18 110/64 (79) 98 06/12/20 00:00 96.8 76 18 100/69 (79) 100 06/12/20 00:00 69 06/11/20 21:00 Room Air 06/11/20 20:00 98.2 74 20 100/63 (75) 97 06/11/20 20:00 68 Intake and Output 06/11/20 06/12/20 19:00 07:00 Intake Total 175 ml 945 ml Balance 175 ml 945 ml Intake Oral 100 ml 120 ml IV Total 75 ml 825 ml # Voids 1 2 # Bowel Movements 1 Laboratory Tests 06/12/20 05:20: White Blood Count 5.8, Red Blood Count 2.71L, Hemoglobin 8.7L, Hematocrit 25.4L, Mean Corpuscular Volume 94, Mean Corpuscular Hemoglobin 32.2H, Mean Corpuscular Hemoglobin Concent 34.3, Red Cell Distribution Width 15.9H, Platelet Count 196, Mean Platelet Volume 6.3L, Neutrophils (%) (Auto) 53.8, Lymphocytes (%) (Auto) 34.9, Monocytes (%) (Auto) 9.6, Eosinophils (%) (Auto) 1.1, Basophils (%) (Auto) 0.6, Sodium Level 134L, Potassium Level 4.3, Chloride Level 102, Carbon Dioxide Level 26, Anion Gap 6, Blood Urea Nitrogen 5L, Creatinine 0.5L, Estimat Glomerular Filtration Rate > 60, Glucose Level 107H, Uric Acid 3.2, Calcium Level 7.7L, Phosphorus Level 3.1, Magnesium Level 2.2, Total Bilirubin 0.9, Aspa rtate Amino Transf (AST/SGOT) 49H, Alanine Aminotransferase (ALT/SGPT) 34, Alkaline Phosphatase 181H, C-Reactive Protein, Quantitative 0.7, Pro-B-Type Natriuretic Peptide 336H, Total Protein 4.9L, Albumin 1.6L, Globulin 3.3, Albumin/Globulin Ratio 0.5L, Triglycerides Level 91, Cholesterol Level 161, LDL Cholesterol 94, HDL Cholesterol 29L, Cholesterol/HDL Ratio 5.6H, Lipase 100 Height (Feet): 5 Height (Inches): 4.00 Weight (Pounds): 130 Assessment/Plan Problem List: (1) Anemia ICD Codes: D64.9 - Anemia, unspecified SNOMED: 382458837 (2) Electrolyte imbalance ICD Codes: E87.8 - Other disorders of electrolyte and fluid balance, not elsewhere classified SNOMED: 549140328 (3) Malnutrition ICD Codes: E46 - Unspecified protein-calorie malnutrition SNOMED: 99310087 Status: progressing Assessment/Plan: anemia lyte abnormality is improving check h/h Tesha Kerr MD Jun 12, 2020 19:31
--- NOTE | 2020-06-12 19:35 | NUR ---
NURSE NOTES: Patient received from MAK Dubon. Patient is awake, alert and oriented x 4. Patient has no complaints as of the moment. Patient is on room air with no signs of acute respiratory distress noted. Patient has a left forearm 22 gauge, saline lock. Bed is in the lowest position and locked, call light within reach. Will continue to monitor.
--- NOTE | 2020-06-12 19:56 | NUR ---
NURSE HAND-OFF REPORT: Important Events on Shift: Low blood pressure treated with midodrine and albumin, remains low. Patient is not eating. Encouraged patient to eat. Patient is refusing to eat. Patient is able to ambulate to restroom. Requires assistance to stand. Patient Status: In no apparent distress. Diet: Regular diet. Pending Orders: am labs. Pending Results/Labs:CBC, CMP, CRP, Mg., Phos., TSH Pending MD notification: N/A Latest Vital Signs: Temperature 96.4 , Pulse 67 , B/P 99 /57 , Respiratory Rate 18 , O2 SAT 100 , Room Air, O2 Flow Rate . Vital Sign Comment: N/A EKG Rhythm: Sinus Rhythm Rhythm change?: N MD Notified?: - MD Response: Latest Ortiz Fall Score: 20 Fall Risk: Low Risk Safety Measures: Call light Within Reach, Bed Alarm Zone 2, Side Rails Side Rails x2, Bed position Low and Locked. Fall Precautions: Patient Fall Education Report given to Darion Devries RN.
[2020-06-12 20:00] VITALS: BP 106/76
[2020-06-12] MEDS ORDERED: Golytely 4L ORAL SCH (21:15)
[2020-06-12] MEDS ORDERED: Sorbitol Solution UD 30ml ORAL SCH (21:15)
--- NOTE | 2020-06-12 21:15 | General Progress Note ---
Subjective Allergies: Coded Allergies: No Known Allergies (Unverified , 06/10/20) Subjective Feels OK (+) BM no abd complaints agreed to EGD/Colon indications and risks explained Objective Last 24 Hour Vital Signs Date Time Temp Pulse Resp B/P (MAP) Pulse Ox O2 Delivery O2 Flow Rate FiO2 06/12/20 16:00 96.4 68 18 99/57 (71) 100 06/12/20 16:00 67 06/12/20 12:00 96.8 67 18 103/67 (79) 100 06/12/20 12:00 63 06/12/20 09:00 Room Air 06/12/20 08:00 75 06/12/20 08:00 97.7 74 18 98/73 (81) 100 06/12/20 04:00 74 06/12/20 04:00 97.8 74 18 110/64 (79) 98 06/12/20 00:00 96.8 76 18 100/69 (79) 100 06/12/20 00:00 69 Intake and Output 06/11/20 06/12/20 19:00 07:00 Intake Total 175 ml 945 ml Balance 175 ml 945 ml Intake Oral 100 ml 120 ml IV Total 75 ml 825 ml # Voids 1 2 # Bowel Movements 1 Laboratory Tests 06/12/20 05:20: White Blood Count 5.8, Red Blood Count 2.71L, Hemoglobin 8.7L, Hematocrit 25.4L, Mean Corpuscular Volume 94, Mean Corpuscular Hemoglobin 32.2H, Mean Corpuscular Hemoglobin Concent 34.3, Red Cell Distribution Width 15.9H, Platelet Count 196, Mean Platelet Volume 6.3L, Neutrophils (%) (Auto) 53.8, Lymphocytes (%) (Auto) 34.9, Monocytes (%) (Auto) 9.6, Eosinophils (%) (Auto) 1.1, Basophils (%) (Auto) 0.6, Sodium Level 134L, Potassium Level 4.3, Chloride Level 102, Carbon Dioxide Level 26, Anion Gap 6, Blood Urea Nitrogen 5L, Creatinine 0.5L, Estimat Glomerular Filtration Rate > 60, Glucose Level 107H, Uric Acid 3.2, Calcium Level 7.7L, Phosphorus Level 3.1, Magnesium Level 2.2, Total Bilirubin 0.9, Aspartate Amino Transf (AST/SGOT) 49H, Alanine Aminotransferase (ALT/SGPT) 34, Alkaline Phosphatase 181H, C-Reactive Protein, Quantitative 0.7, Pro-B-Type Natriuretic Peptide 336H, Total Protein 4.9L, Albumin 1.6L, Globulin 3.3, Albumin/Globulin Ratio 0.5L, Triglycerides Level 91, Cholesterol Level 161, LDL Cholesterol 94, HDL Cholesterol 29L, Cholesterol/HDL Ratio 5.6H, Lipase 100 Height (Feet): 5 Height (Inches): 4.00 Weight (Pounds): 130 Objective Thin woman NCAT supple CTA RR abd soft no edema Assessment/Plan Status: progressing Assessment/Plan: Assessment - Anemia - OB (-) stools - H/o HTN - Hypokalemia Recommendations - replace K - follow H&H - EGD/colon Wednesday Ezekiel Quintana MD Jun 12, 2020 21:15
--- NOTE | 2020-06-12 23:50 | NUR ---
NURSE NOTES: Notified Dr. Garcia regarding patient's episode of sinus bradycardia with a heart rate of 48. MD aware and acknowledged, no new orders.
[2020-06-13] VITALS: BP 90/58
[2020-06-13 04:00] VITALS: BP 93/63
--- NOTE | 2020-06-13 06:19 | Hematology/Onc Progress Note ---
Assessment/Plan Assessment/Plan Assessment and recs # Anemia r/o gi bleed --> hgb 7.4-->8.7 -> transfuse prn basis --> anemia panel has been reviewed, results pending --> no hemolysis is noted --> 2 units prbc in 06/10 --> egd/colo pending # Hypokalemia --> k has been repleted --> as per renal care # Generalized weakness. --> is likely due to above -> pt as needed and ot # Dvt ppx scds Appreciate consultation and carmelina Rn Subjective HEENT: Denies: no symptoms, eye pain, blurred vision, tearing, double vision, ear pain, ear discharge, nose pain, nose congestion, throat pain, throat swelling, mouth pain, mouth swelling, other Cardiovascular: Denies: no symptoms, chest pain, edema, irregular heart rate, lightheadedness, palpitations, syncope, other Respiratory: Denies: no symptoms, cough, shortness of breath, SOB with excertion, SOB at rest, sputum, wheezing, other Gastrointestinal/Abdominal: Denies: no symptoms, abdomen distended, abdominal pain, black stools, tarry stools, blood in stool, constipated, diarrhea, difficulty swallowing, nausea, poor appetite, poor fluid intake, rectal bleeding, vomiting, other Genitourinary: Denies: no symptoms, burning, discharge, frequency, flank pain, hematuria, incontinence, pain, urgency, other Endocrine: Denies: no symptoms, excessive sweating, flushing, intolerance to cold, intolerance to heat, increased hunger, increased thirst, increased urine, unexplained weight gain, unexplained weight loss, other Allergies: Coded Allergies: No Known Allergies (Unverified , 06/10/20) Subjective 06/12 meds noted, no bleeding, ferritin 987, hgb better 3/ agreed to egd/colo as per gi, meds noted, no bleeding Objective Objective Current Medications Medications (Trade) Dose Ordered Sig/He Route PRN Reason Start Time Stop Time Status Last Admin Dose Admin Acetaminophen (Tylenol) 500 mg Q6H PRN ORAL Pain Scale (3-5) 06/11/20 11:30 07/11/20 11:29 06/11/20 12:56 Folic Acid (Folate) 3 mg DAILY ORAL 3/2/21 16:00 07/11/20 15:59 06/12/20 09:26 Midodrine (Pro-Amatine) 10 mg THREE TIMES A DAY ORAL 06/12/20 09:00 09/10/20 08:59 06/12/20 17:23 Polyethylene Glycol/ Electrolytes (Golytely) 4,000 ml ONCE ORAL 06/13/20 10:00 06/13/20 14:00 Thiamine HCl (Vitamin B1) 100 mg DAILY ORAL 06/11/20 16:00 07/11/20 15:59 06/12/20 09:26 Last 24 Hour Vital Signs Date Time Temp Pulse Resp B/P (MAP) Pulse Ox O2 Delivery O2 Flow Rate FiO2 06/13/20 04:00 97.9 66 18 93/63 (73) 98 06/13/20 04:00 48 06/13/20 00:00 97.5 61 20 90/58 (69) 100 06/13/20 00:00 48 06/12/20 21:00 Room Air 06/12/20 20:00 52 06/12/20 20:00 97.5 67 18 106/76 (86) 97 06/12/20 16:00 96.4 68 18 99/57 (71) 100 06/12/20 16:00 67 06/12/20 12:00 96.8 67 18 103/67 (79) 100 06/12/20 12:00 63 06/12/20 09:00 Room Air 06/12/20 08:00 75 06/12/20 08:00 97.7 74 18 98/73 (81) 100 06/12/20 04:00 74 06/12/20 04:00 97.8 74 18 110/64 (79) 98 06/12/20 00:00 96.8 76 18 100/69 (79) 100 06/12/20 00:00 69 06/11/20 21:00 Room Air 06/11/20 20:00 98.2 74 20 100/63 (75) 97 06/11/20 20:00 68 06/11/20 16:00 97.7 74 20 101/73 (82) 100 06/11/20 16:00 78 06/11/20 13:26 97.6 06/11/20 12:00 97.6 77 20 104/74 (84) 100 06/11/20 12:00 76 06/11/20 09:00 Room Air 06/11/20 08:00 97.8 62 20 89/61 (70) 100 06/11/20 08:00 66 Intake and Output 06/12/20 06/13/20 19:00 07:00 Intake Total 602.5 ml Balance 602.5 ml IV Total 602.5 ml # Voids 2 2 # Bowel Movements 1 2 Labs Test 06/10/20 18:39 06/10/20 21:46 06/11/20 06:11 06/11/20 16:00 White Blood Count 5.9 K/UL (4.8-10.8) 5.4 K/UL (4.8-10.8) Red Blood Count 2.24 M/UL (4.20-5.40) 2.77 M/UL (4.20-5.40) Hemoglobin 7.4 G/DL (12.0-16.0) 9.0 G/DL (12.0-16.0) Hematocrit 22.5 % (37.0-47.0) 26.7 % (37.0-47.0) Mean Corpuscular Volume 101 FL (80-99) 96 FL (80-99) Mean Corpuscular Hemoglobin 33.2 PG (27.0-31.0) 32.3 PG (27.0-31.0) Mean Corpuscular Hemoglobin Concent 33.0 G/DL (32.0-36.0) 33.6 G/DL (32.0-36.0) Red Cell Distribution Width 18.0 % (11.6-14.8) 16.3 % (11.6-14.8) Platelet Count 200 K/UL (150-450) 175 K/UL (150-450) Mean Platelet Volume 6.3 FL (6.5-10.1) 6.5 FL (6.5-10.1) Neutrophils (%) (Auto) % (45.0-75.0) 46.9 % (45.0-75.0) Lymphocytes (%) (Auto) % (20.0-45.0) 40.2 % (20.0-45.0) Monocytes (%) (Auto) % (1.0-10.0) 11.1 % (1.0-10.0) Eosinophils (%) (Auto) % (0.0-3.0) 0.7 % (0.0-3.0) Basophils (%) (Auto) % (0.0-2.0) 1.0 % (0.0-2.0) Differential Total Cells Counted 100 Neutrophils % (Manual) 69 % (45-75) Lymphocytes % (Manual) 26 % (20-45) Monocytes % (Manual) 5 % (1-10) Eosinophils % (Manual) 0 % (0-3) Basophils % (Manual) 0 % (0-2) Band Neutrophils 0 % (0-8) Platelet Estimate Adequate Platelet Morphology Normal Hypochromasia 1+ Anisocytosis 1+ Macrocytosis 1+ Sodium Level 136 MMOL/L (136-145) 140 MMOL/L (136-145) Potassium Level 2.5 MMOL/L (3.5-5.1) 2.5 MMOL/L (3.5-5.1) Chloride Level 98 MMOL/L (98-107) 103 MMOL/L (98-107) Carbon Dioxide Level 22 MMOL/L (21-32) 26 MMOL/L (21-32) Anion Gap 16 mmol/L (5-15) 12 mmol/L (5-15) Blood Urea Nitrogen 6 mg/dL (7-18) 8 mg/dL (7-18) Creatinine 0.7 MG/DL (0.55-1.30) 0.6 MG/DL (0.55-1.30) Estimat Glomerular Filtration Rate > 60 mL/min (>60) > 60 mL/min (>60) Glucose Level 89 MG/DL (74-106) 63 MG/DL (74-106) Calcium Level 8.4 MG/DL (8.5-10.1) 8.1 MG/DL (8.5-10.1) Iron Level 83 ug/dL (50-175) Total Iron Binding Capacity 101 ug/dL (250-450) Percent Iron Saturation 82 % (15-50) Unsaturated Iron Binding 18 ug/dL (112-346) Total Bilirubin 1.0 MG/DL (0.2-1.0) 1.0 MG/DL (0.2-1.0) Aspartate Amino Transf (AST/SGOT) 64 U/L (15-37) 49 U/L (15-37) Alanine Aminotransferase (ALT/SGPT) 41 U/L (12-78) 35 U/L (12-78) Alkaline Phosphatase 207 U/L (46-116) 175 U/L (46-116) Troponin I 0.013 ng/mL (0.000-0.056) Total Protein 5.4 G/DL (6.4-8.2) 4.8 G/DL (6.4-8.2) Albumin 1.7 G/DL (3.4-5.0) 1.5 G/DL (3.4-5.0) Globulin 3.7 g/dL 3.3 g/dL Albumin/Globulin Ratio 0.5 (1.0-2.7) 0.5 (1.0-2.7) Serum Alcohol < 3 mg/dL Stool Occult Blood Negative (NEGATIVE) Phosphorus Level 2.3 MG/DL (2.5-4.9) Magnesium Level 1.3 MG/DL (1.8-2.4) Ferritin 987 NG/ML (8-388) Vitamin B12 Level 1907 PG/ML (193-986) Folate 5.0 NG/ML (8.6-58.9) Urine Color Brown Urine Appearance Cloudy Urine pH 6 (4.5-8.0) Urine Specific [place] 1.010 (1.005-1.035) Urine Protein 2+ (NEGATIVE) Urine Glucose (UA) Negative (NEGATIVE) Urine Ketones 3+ (NEGATIVE) Urine Blood 2+ (NEGATIVE) Urine Nitrite Positive (NEGATIVE) Urine Bilirubin 2+ (NEGATIVE) Urine Ictotest Positive (NEGATIVE) Urine Urobilinogen 12 MG/DL (0.0-1.0) Urine Leukocyte Esterase 2+ (NEGATIVE) Urine RBC 2-4 /HPF (0 - 2) Urine WBC 5-10 /HPF (0 - 2) Urine Squamous Epithelial Cells Moderate /LPF (NONE/OCC) Urine Amorphous Sediment Moderate /LPF (NONE) Urine Bacteria Moderate /HPF (NONE) Urine Opiates Screen Negative (NEGATIVE) Urine Barbiturates Screen Negative (NEGATIVE) Phencyclidine (PCP) Screen Negative (NEGATIVE) Urine Amphetamines Screen Negative (NEGATIVE) Urine Benzodiazepines Screen Negative (NEGATIVE) Urine Cocaine Screen Negative (NEGATIVE) Urine Marijuana (THC) Screen Negative (NEGATIVE) Test 06/11/20 17:20 3/3/21 05:20 Sodium Level 134 MMOL/L (136-145) 134 MMOL/L (136-145) Potassium Level 3.7 MMOL/L (3.5-5.1) 4.3 MMOL/L (3.5-5.1) Chloride Level 99 MMOL/L (98-107) 102 MMOL/L (98-107) Carbon Dioxide Level 26 MMOL/L (21-32) 26 MMOL/L (21-32) Anion Gap 9 mmol/L (5-15) 6 mmol/L (5-15) Blood Urea Nitrogen 8 mg/dL (7-18) 5 mg/dL (7-18) Creatinine 0.6 MG/DL (0.55-1.30) 0.5 MG/DL (0.55-1.30) Estimat Glomerular Filtration Rate > 60 mL/min (>60) > 60 mL/min (>60) Glucose Level 101 MG/DL (74-106) 107 MG/DL (74-106) Calcium Level 8.2 MG/DL (8.5-10.1) 7.7 MG/DL (8.5-10.1) White Blood Count 5.8 K/UL (4.8-10.8) Red Blood Count 2.71 M/UL (4.20-5.40) Hemoglobin 8.7 G/DL (12.0-16.0) Hematocrit 25.4 % (37.0-47.0) Mean Corpuscular Volume 94 FL (80-99) Mean Corpuscular Hemoglobin 32.2 PG (27.0-31.0) Mean Corpuscular Hemoglobin Concent 34.3 G/DL (32.0-36.0) Red Cell Distribution Width 15.9 % (11.6-14.8) Platelet Count 196 K/UL (150-450) Mean Platelet Volume 6.3 FL (6.5-10.1) Neutrophils (%) (Auto) 53.8 % (45.0-75.0) Lymphocytes (%) (Auto) 34.9 % (20.0-45.0) Monocytes (%) (Auto) 9.6 % (1.0-10.0) Eosinophils (%) (Auto) 1.1 % (0.0-3.0) Basophils (%) (Auto) 0.6 % (0.0-2.0) Uric Acid 3.2 MG/DL (2.6-7.2) Phosphorus Level 3.1 MG/DL (2.5-4.9) Magnesium Level 2.2 MG/DL (1.8-2.4) Total Bilirubin 0.9 MG/DL (0.2-1.0) Aspartate Amino Transf (AST/SGOT) 49 U/L (15-37) Alanine Aminotransferase (ALT/SGPT) 34 U/L (12-78) Alkaline Phosphatase 181 U/L (46-116) C-Reactive Protein, Quantitative 0.7 mg/dL (0.00-0.90) Pro-B-Type Natriuretic Peptide 336 pg/mL (0-125) Total Protein 4.9 G/DL (6.4-8.2) Albumin 1.6 G/DL (3.4-5.0) Globulin 3.3 g/dL Albumin/Globulin Ratio 0.5 (1.0-2.7) Triglycerides Level 91 MG/DL (30-150) Cholesterol Level 161 MG/DL (< 200) LDL Cholesterol 94 mg/dL (<100) HDL Cholesterol 29 MG/DL (40-60) Cholesterol/HDL Ratio 5.6 (3.3-4.4) Lipase 100 U/L (73-393) Height (Feet): 5 Height (Inches): 4.00 Weight (Pounds): 130 Objective General: Awake and alert, nad HEENT: NC/AT. EOMI. Cardiovascular: RRR. S1 and S2 normal. No murmur appreciated Resp: Normal work of breathing. No cough, wheezing or crackles appreciated Abdomen: Abdomen is soft, nondistended. Nontender. Skin: Intact. No abrasions, laceration or rash over the exposed skin MSK: Normal tone and bulk. Moving all extremities. No obvious deformity. Neuro: Awake and alert. Mentating appropriately. Alon Solares MD Jun 13, 2020 06:19
--- NOTE | 2020-06-13 07:23 | NUR ---
RD ASSESSMENT & RECOMMENDATIONS SEE CARE ACTIVITY FOR COMPLETE ASSESSMENT DAILY ESTIMATED NEEDS: Needs based on Borderline underweight, 49kg 25-35 kcals/kg 0206-5826 total kcals 1-1.5 g protein/kg 49-74 g total protein 25-30 mL/kg 5249-5086 total fluid mLs NUTRITION DIAGNOSIS: Increased kcal needs r/t borderline underweight status as evidenced by BMI 18.6. pt @90% of IBW. CURRENT DIET: Regular diet, pending CLD/ NPO for GI prep PO DIET RECOMMENDATIONS-->> As able, Regular/ soft diet ADDITIONAL RECOMMENDATIONS: 1) Maintain daily calibrated bed scale wts 2) Resume D5 w/ pending CLD/ NPO status and current poor po intake Rec Accuchecks for hypoglycemia 3) Monitor lytes daily 4) Add Ensure W/ meals; add Ensure Clear w/ CLD
--- NOTE | 2020-06-13 07:28 | NUR ---
NURSE HAND-OFF REPORT: Important Events on Shift:[EGD and Colonoscopy consent is signed. Patient will start Golytely this morning. Patient has poor appetite. Dr. Garcia aware of patient's bradycardia episode.] Patient Status: [Stable] Diet: [Clear liquid diet] Pending Orders: [] Pending Results/Labs:[] Pending MD notification:[] Latest Vital Signs: Temperature 97.9 , Pulse 66 , B/P 93 /63 , Respiratory Rate 18 , O2 SAT 98 , Room Air, O2 Flow Rate . Vital Sign Comment: [] EKG Rhythm: Sinus Bradycardia Rhythm change?: N MD Notified?: Y -Dr. Radha ESPINO Response: Latest Ortiz Fall Score: 30 Fall Risk: Medium Risk Safety Measures: Call light Within Reach, Bed Alarm Zone 2, Side Rails Side Rails x2, Bed position Low and Locked. Fall Precautions: Patient Fall Education Report given to [MAK Flanagan].
--- NOTE | 2020-06-13 07:31 | NUR ---
NURSE NOTES: pt is in the room alert and awake. respiration is even and unlabored on room air. pt denies any pain and discomfort. no acute distress noted at this time. call light is within reach.
[2020-06-13 08:00] VITALS: BP 101/67
[2020-06-13 09:11] LABS: BASOPHILS % (AUTO) 0.9 % (0.0-2.0); EOSINOPHILS % (AUTO) 1.8 % (0.0-3.0); HEMATOCRIT 25.7 % (37.0-47.0); HEMOGLOBIN 8.4 G/DL (12.0-16.0); LYMPHOCYTES % (AUTO) 35.1 % (20.0-45.0); MEAN CORPUSCULAR VOLUME 97 FL (80-99); NEUTROPHILS % (AUTO) 54.3 % (45.0-75.0); PLATELET COUNT 207 K/UL (150-450); RED BLOOD COUNT 2.65 M/UL (4.20-5.40); RED CELL DISTRIBUTION WIDTH 16.3 % (11.6-14.8); WHITE BLOOD COUNT 6.1 K/UL (4.8-10.8)
[2020-06-13] MEDS: Midodrine 10mg tab ORAL SCH (09:23)
[2020-06-13] MEDS: Thiamine 100mg tab ORAL SCH (09:23)
[2020-06-13 09:46] LABS: ALANINE AMINOTRANSFERASE 21 U/L (12-78); ALBUMIN 2.1 G/DL (3.4-5.0); ALBUMIN/GLOBULIN RATIO 0.8 (1.0-2.7); ALKALINE PHOSPHATASE 154 U/L (46-116); ANION GAP 6 mmol/L (5-15); ASPARTATE AMINO TRANSFERASE 42 U/L (15-37); BILIRUBIN,TOTAL 0.5 MG/DL (0.2-1.0); BLOOD UREA NITROGEN 4 mg/dL (7-18); CALCIUM 7.9 MG/DL (8.5-10.1); CARBON DIOXIDE 25 MMOL/L (21-32); CHLORIDE 106 MMOL/L (98-107); CREATININE 0.5 MG/DL (0.55-1.30); PHOSPHORUS 2.9 MG/DL (2.5-4.9); SODIUM 137 MMOL/L (136-145)
[2020-06-13] MEDS ORDERED: Golytely 4L ORAL SCH (10:00)
--- NOTE | 2020-06-13 10:23 | Cardiac Electrophysiology PN ---
Subjective Subjective [id number] Objective Last 24 Hour Vital Signs Date Time Temp Pulse Resp B/P (MAP) Pulse Ox O2 Delivery O2 Flow Rate FiO2 06/13/20 08:00 98.2 62 20 101/67 (78) 97 06/13/20 04:00 97.9 66 18 93/63 (73) 98 06/13/20 04:00 48 06/13/20 00:00 97.5 61 20 90/58 (69) 100 06/13/20 00:00 48 06/12/20 21:00 Room Air 06/12/20 20:00 52 06/12/20 20:00 97.5 67 18 106/76 (86) 97 06/12/20 16:00 96.4 68 18 99/57 (71) 100 06/12/20 16:00 67 06/12/20 12:00 96.8 67 18 103/67 (79) 100 06/12/20 12:00 63 Intake and Output 06/12/20 06/13/20 19:00 07:00 Intake Total 602.5 ml Balance 602.5 ml IV Total 602.5 ml # Voids 2 2 # Bowel Movements 1 2 Laboratory Tests Test 06/13/20 08:45 White Blood Count 6.1 K/UL (4.8-10.8) Red Blood Count 2.65 M/UL (4.20-5.40) L Hemoglobin 8.4 G/DL (12.0-16.0) L Hematocrit 25.7 % (37.0-47.0) L Mean Corpuscular Volume 97 FL (80-99) Mean Corpuscular Hemoglobin 31.7 PG (27.0-31.0) H Mean Corpuscular Hemoglobin Concent 32.7 G/DL (32.0-36.0) Red Cell Distribution Width 16.3 % (11.6-14.8) H Platelet Count 207 K/UL (150-450) Mean Platelet Volume 6.7 FL (6.5-10.1) Neutrophils (%) (Auto) 54.3 % (45.0-75.0) Lymphocytes (%) (Auto) 35.1 % (20.0-45.0) Monocytes (%) (Auto) 8.0 % (1.0-10.0) Eosinophils (%) (Auto) 1.8 % (0.0-3.0) Basophils (%) (Auto) 0.9 % (0.0-2.0) Sodium Level 137 MMOL/L (136-145) Potassium Level 4.0 MMOL/L (3.5-5.1) Chloride Level 106 MMOL/L (98-107) Carbon Dioxide Level 25 MMOL/L (21-32) Anion Gap 6 mmol/L (5-15) Blood Urea Nitrogen 4 mg/dL (7-18) L Creatinine 0.5 MG/DL (0.55-1.30) L Estimat Glomerular Filtration Rate > 60 mL/min (>60) Glucose Level 81 MG/DL (74-106) Calcium Level 7.9 MG/DL (8.5-10.1) L Phosphorus Level 2.9 MG/DL (2.5-4.9) Magnesium Level 2.1 MG/DL (1.8-2.4) Total Bilirubin 0.5 MG/DL (0.2-1.0) Aspartate Amino Transf (AST/SGOT) 42 U/L (15-37) H Alanine Aminotransferase (ALT/SGPT) 21 U/L (12-78) Alkaline Phosphatase 154 U/L (46-116) H C-Reactive Protein, Quantitative 0.7 mg/dL (0.00-0.90) Total Protein 4.8 G/DL (6.4-8.2) L Albumin 2.1 G/DL (3.4-5.0) L Globulin 2.7 g/dL Albumin/Globulin Ratio 0.8 (1.0-2.7) L Thyroid Stimulating Hormone (TSH) 1.998 uiU/mL (0.358-3.740) Microbiology Date/Time Source Procedure Growth Status 06/11/20 16:00 Urine,Clean Catch Urine Culture - Final Mixed Urogenital Contaminants Complete Gil Garcia MD Jun 13, 2020 10:23
[2020-06-13 12:00] VITALS: BP 90/64
--- NOTE | 2020-06-13 12:19 | Nephrology Progress Note ---
Assessment/Plan Problem List: (1) Hypokalemia (2) Anemia (3) Electrolyte imbalance (4) Malnutrition Assessment Severe hypokalemia Severe anemia Malnutrition, hypoalbuminemia Low phosphorus low magnesium Plan June 13. Renal parameters and electrolytes now all normalized. Continue per consultants. June 12: Labs reviewed. Electrolyte abnormalities , low phosphorus low magnesium addressed. Continue per consultants. Previously: Replacement of the potassium, magnesium, phosphorus per order Urine for analysis and urine for tox screen Replace folate and thiamine orally Continue to monitor electrolytes and renal parameters Per orders Subjective ROS Limited/Unobtainable: No Objective Objective Last 24 Hour Vital Signs Date Time Temp Pulse Resp B/P (MAP) Pulse Ox O2 Delivery O2 Flow Rate FiO2 06/13/20 09:00 Room Air 06/13/20 08:00 58 06/13/20 08:00 98.2 62 20 101/67 (78) 97 06/13/20 04:00 97.9 66 18 93/63 (73) 98 06/13/20 04:00 48 06/13/20 00:00 97.5 61 20 90/58 (69) 100 06/13/20 00:00 48 06/12/20 21:00 Room Air 06/12/20 20:00 52 06/12/20 20:00 97.5 67 18 106/76 (86) 97 06/12/20 16:00 96.4 68 18 99/57 (71) 100 06/12/20 16:00 67 Intake and Output 06/12/20 06/13/20 19:00 07:00 Intake Total 602.5 ml Balance 602.5 ml IV Total 602.5 ml # Voids 2 2 # Bowel Movements 1 2 Current Medications Medications (Trade) Dose Ordered Sig/He Route PRN Reason Start Time Stop Time Status Last Admin Dose Admin Acetaminophen (Tylenol) 500 mg Q6H PRN ORAL Pain Scale (3-5) 06/11/20 11:30 07/11/20 11:29 06/11/20 12:56 Folic Acid (Folate) 3 mg DAILY ORAL 06/11/20 16:00 07/11/20 15:59 06/13/20 09:23 Polyethylene Glycol/ Electrolytes (Golytely) 4,000 ml ONCE ORAL 06/13/20 10:00 06/13/20 14:00 06/13/20 10:24 Thiamine HCl (Vitamin B1) 100 mg DAILY ORAL 06/11/20 16:00 07/11/20 15:59 06/13/20 09:23 Laboratory Tests 06/13/20 08:45: White Blood Count 6.1, Red Blood Count 2.65L, Hemoglobin 8.4L, Hematocrit 25.7L, Mean Corpuscular Volume 97, Mean Corpuscular Hemoglobin 31.7H, Mean Corpuscular Hemoglobin Concent 32.7, Red Cell Distribution Width 16.3H, Platelet Count 207, Mean Platelet Volume 6.7, Neutrophils (%) (Auto) 54.3, Lymphocytes (%) (Auto) 35.1, Monocytes (%) (Auto) 8.0, Eosinophils (%) (Auto) 1.8, Basophils (%) (Auto) 0.9, Sodium Level 137, Potassium Level 4.0, Chloride Level 106, Carbon Dioxide Level 25, Anion Gap 6, Blood Urea Nitrogen 4L, Creatinine 0.5L, Estimat Glomerular Filtration Rate > 60, Glucose Level 81, Calcium Level 7.9L, Phosphorus Level 2.9, Magnesium Level 2.1, Total Bilirubin 0.5, Aspartate Amino Transf (AST/SGOT) 42H, Alanine Aminotransferase (ALT/SGPT) 21, Alkaline Phosphatase 154H, Troponin I 0.014, C-Reactive Protein, Quantitative 0.7, Total Protein 4.8L, Albumin 2.1L, Globulin 2.7, Albumin/Globulin Ratio 0.8L, Thyroid Stimulating Hormone (TSH) 1.998 Height (Feet): 5 Height (Inches): 4.00 Weight (Pounds): 130 General Appearance: no apparent distress Cardiovascular: normal rate Respiratory/Chest: lungs clear Objective No change Byron Mosley MD Jun 13, 2020 12:19
[2020-06-13 16:00] VITALS: BP 94/62
--- NOTE | 2020-06-13 17:44 | Consultation ---
DATE OF CONSULTATION: 06/13/2020 CARDIOLOGY CONSULTATION CONSULTING PHYSICIAN: Gil Garcia MD REFERRING PHYSICIAN: Tesha Kerr MD REASON FOR THE CONSULTATION: Hypertension and bradycardia. HISTORY OF PRESENT ILLNESS: The patient is a 55-year-old lady with history of hypertension, who presented to the emergency room for generalized weakness for a few days. The patient smokes and drinks alcohol regularly. Denies any drug use. The patient was noted to be anemic with hemoglobin as low as 7.4, and she is scheduled for EGD and colonoscopy tomorrow. The patient was also bradycardic with heart rate dropping to 48. Cardiac electrophysiology consultation was requested for further evaluation and management. REVIEW OF SYSTEMS: Negative other than what is mentioned in history of present illness. PAST MEDICAL HISTORY: As mentioned above. FAMILY HISTORY: Noncontributory. SOCIAL HISTORY: She continues to smoke and drink alcohol. PHYSICAL EXAMINATION: VITAL SIGNS: Blood pressure of 101/67, pulse was as low as 48, currently 62, respirations 18, and she is afebrile. HEAD AND NECK: No JVD. LUNGS: Clear. CARDIOVASCULAR: Regular S1 and S2 with no gallop or murmur. ABDOMEN: Soft. EXTREMITIES: No pitting edema. LABORATORY DATA: Labs show white count of 6.1, hemoglobin was low at 7.4, currently 8.4, and platelet count is 207. Sodium 137, potassium 4.0, BUN of 4, creatinine 0.7. Glucose is negative. BNP 336. The patient's troponin was negative. ASSESSMENT AND PLAN: 1. Bradycardia. First troponin is negative. Repeat cardiac enzymes. Get an echocardiogram for further evaluation as well as thyroid function test. The patient is on midodrine that can precipitate the patient's bradycardia. That will be discontinued. 2. Severe anemia, hemoglobin 7.4. The patient will be undergoing EGD and colonoscopy tomorrow. 3. History of alcohol use, on thiamine and folate. 4. History of hypertension. Currently, blood pressure is low, but improved. I will discontinue midodrine in view of bradycardia. 5. Severe hypokalemia, was replaced by Dr. Mosley. Thank you very much for allowing me to participate in the care of this patient. Please do not hesitate to contact me for any questions regarding my evaluation. Gil Garcia M.D. DR: Javy JOB#: [id number] CC:
--- NOTE | 2020-06-13 19:15 | NUR ---
NURSE NOTES: Important Events on Shift: Received report from Panchito Perla RN. Pt in bed, awake, denies pain, no signs of distress noted. Will continue plan of care and close monitoring. Patient Status: full code Diet: Clear liquid, NPO @ 0000 Pending Orders: colonoscopy, EGD in AM. Pending Results/Labs: CBC, BMP, troponin Pending MD notification: none Latest Vital Signs: Temperature 97.9 , Pulse 63 , B/P 106 /63 , Respiratory Rate 16 , O2 SAT 98 , Room Air, O2 Flow Rate . Vital Sign Comment: Per report, stable throughout shift. EKG Rhythm: Sinus Rhythm Rhythm change?: N MD Notified?: - MD Response: - Latest Ortiz Fall Score: 30 Fall Risk: Medium Risk Safety Measures: Call light Within Reach, Bed Alarm Zone 2, Side Rails Side Rails x2, Bed position Low and Locked. Fall Precautions: Patient Fall Education, yellow gown, yellow socks
[2020-06-13 20:00] VITALS: BP 90/56
--- NOTE | 2020-06-13 20:56 | General Progress Note ---
Subjective ROS Limited/Unobtainable: Yes Allergies: Coded Allergies: No Known Allergies (Unverified , 06/10/20) Objective Last 24 Hour Vital Signs Date Time Temp Pulse Resp B/P (MAP) Pulse Ox O2 Delivery O2 Flow Rate FiO2 06/13/20 16:00 48 06/13/20 16:00 97.9 77 21 94/62 (73) 97 77 06/13/20 12:00 61 06/13/20 12:00 97.1 79 20 90/64 (73) 97 06/13/20 09:00 Room Air 06/13/20 08:00 58 06/13/20 08:00 98.2 62 20 101/67 (78) 97 06/13/20 04:00 97.9 66 18 93/63 (73) 98 06/13/20 04:00 48 06/13/20 00:00 97.5 61 20 90/58 (69) 100 06/13/20 00:00 48 06/12/20 21:00 Room Air Intake and Output 06/12/20 06/13/20 19:00 07:00 Intake Total 602.5 ml Balance 602.5 ml IV Total 602.5 ml # Voids 2 2 # Bowel Movements 1 2 Laboratory Tests 06/13/20 08:45: White Blood Count 6.1, Red Blood Count 2.65L, Hemoglobin 8.4L, Hematocrit 25.7L, Mean Corpuscular Volume 97, Mean Corpuscular Hemoglobin 31.7H, Mean Corpuscular Hemoglobin Concent 32.7, Red Cell Distribution Width 16.3H, Platelet Count 207, Mean Platelet Volume 6.7, Neutrophils (%) (Auto) 54.3, Lymphocytes (%) (Auto) 35.1, Monocytes (%) (Auto) 8.0, Eosinophils (%) (Auto) 1.8, Basophils (%) (Auto) 0.9, Sodium Level 137, Potassium Level 4.0, Chloride Level 106, Carbon Dioxide Level 25, Anion Gap 6, Blood Urea Nitrogen 4L, Creatinine 0.5L, Estimat Glomerular Filtration Rate > 60, Glucose Level 81, Calcium Level 7.9L, Phosp horus Level 2.9, Magnesium Level 2.1, Total Bilirubin 0.5, Aspartate Amino Transf (AST/SGOT) 42H, Alanine Aminotransferase (ALT/SGPT) 21, Alkaline Phosphatase 154H, Troponin I 0.014, C-Reactive Protein, Quantitative 0.7, Total Protein 4.8L, Albumin 2.1L, Globulin 2.7, Albumin/Globulin Ratio 0.8L, Thyroid Stimulating Hormone (TSH) 1.998 06/13/20 18:50: Troponin I 0.014 Height (Feet): 5 Height (Inches): 4.00 Weight (Pounds): 130 Assessment/Plan Problem List: (1) Anemia ICD Codes: D64.9 - Anemia, unspecified SNOMED: 913033996 (2) Electrolyte imbalance ICD Codes: E87.8 - Other disorders of electrolyte and fluid balance, not elsewhere classified SNOMED: 972304443 (3) Malnutrition ICD Codes: E46 - Unspecified protein-calorie malnutrition SNOMED: 11160286 Status: progressing Assessment/Plan: anemia check h/h afebrile s/p fall weak lyte abnormality reviewed chart and labs Tesha Kerr MD Jun 13, 2020 20:56
--- NOTE | 2020-06-13 21:01 | General Progress Note ---
Subjective Allergies: Coded Allergies: No Known Allergies (Unverified , 06/10/20) Subjective Feels OK (+) BM no abd complaints for EGD/Colon tomorrow Objective Last 24 Hour Vital Signs Date Time Temp Pulse Resp B/P (MAP) Pulse Ox O2 Delivery O2 Flow Rate FiO2 06/13/20 16:00 48 06/13/20 16:00 97.9 77 21 94/62 (73) 97 77 06/13/20 12:00 61 06/13/20 12:00 97.1 79 20 90/64 (73) 97 06/13/20 09:00 Room Air 06/13/20 08:00 58 06/13/20 08:00 98.2 62 20 101/67 (78) 97 06/13/20 04:00 97.9 66 18 93/63 (73) 98 06/13/20 04:00 48 06/13/20 00:00 97.5 61 20 90/58 (69) 100 06/13/20 00:00 48 06/12/20 21:00 Room Air Intake and Output 06/12/20 06/13/20 19:00 07:00 Intake Total 602.5 ml Balance 602.5 ml IV Total 602.5 ml # Voids 2 2 # Bowel Movements 1 2 Laboratory Tests 06/13/20 08:45: White Blood Count 6.1, Red Blood Count 2.65L, Hemoglobin 8.4L, Hematocrit 25.7L, Mean Corpuscular Volume 97, Mean Corpuscular Hemoglobin 31.7H, Mean Corpuscular Hemoglobin Concent 32.7, Red Cell Distribution Width 16.3H, Platelet Count 207, Mean Platelet Volume 6.7, Neutrophils (%) (Auto) 54.3, Lymphocytes (%) (Auto) 35.1, Monocytes (%) (Auto) 8.0, Eosinophils (%) (Auto) 1.8, Basophils (%) (Auto) 0.9, Sodium Level 137, Potassium Level 4.0, Chloride Level 106, Carbon Dioxide Level 25, Anion Gap 6, Blood Urea Nitrogen 4L, Creatinine 0.5L, Estimat Glomerular Filtration Rate > 60, Glucose Level 81, Calcium Level 7.9L, Phosphorus Level 2.9, Magnesium Level 2.1, Total Bilirubin 0.5, Aspartate Amino Transf (AST/SGOT) 42H, Alanine Aminotransferase (ALT/SGPT) 21, Alkaline Phosphatase 154H, Troponin I 0.014, C-Reactive Protein, Quantitative 0.7, Total Protein 4.8L, Albumin 2.1L, Globulin 2.7, Albumin/Globulin Ratio 0.8L, Thyroid Stimulating Hormone (TSH) 1.998 06/13/20 18:50: Troponin I 0.014 Height (Feet): 5 Height (Inches): 4.00 Weight (Pounds): 130 Objective Thin woman NCAT supple CTA RR abd soft no edema Assessment/Plan Status: progressing Assessment/Plan: Assessment - Anemia - OB (-) stools - H/o HTN - Hypokalemia - corrected Recommendations - follow H&H - EGD/colon tomorrow Ezekiel Abraham MD Jun 13, 2020 21:01
[2020-06-14] VITALS (9 sets, daily range): BP systolic 97–106; BP diastolic 63–76
[2020-06-14 03:27] LABS: BASOPHILS % (AUTO) 0.3 % (0.0-2.0); EOSINOPHILS % (AUTO) 2.1 % (0.0-3.0); HEMATOCRIT 26.4 % (37.0-47.0); HEMOGLOBIN 8.7 G/DL (12.0-16.0); LYMPHOCYTES % (AUTO) 29.4 % (20.0-45.0); MEAN CORPUSCULAR VOLUME 97 FL (80-99); MONOCYTES % (AUTO) 7.9 % (1.0-10.0); NEUTROPHILS % (AUTO) 60.2 % (45.0-75.0); PLATELET COUNT 227 K/UL (150-450); RED BLOOD COUNT 2.71 M/UL (4.20-5.40); RED CELL DISTRIBUTION WIDTH 17.1 % (11.6-14.8); WHITE BLOOD COUNT 6.1 K/UL (4.8-10.8)
[2020-06-14 03:47] LABS: ANION GAP 10 mmol/L (5-15); BLOOD UREA NITROGEN 4 mg/dL (7-18); CALCIUM 8.3 MG/DL (8.5-10.1); CARBON DIOXIDE 23 MMOL/L (21-32); CHLORIDE 106 MMOL/L (98-107); CREATININE 0.5 MG/DL (0.55-1.30); POTASSIUM 3.3 MMOL/L (3.5-5.1); SODIUM 139 MMOL/L (136-145)
--- NOTE | 2020-06-14 06:24 | Hematology/Onc Progress Note ---
Assessment/Plan Assessment/Plan Assessment and recs # Anemia r/o gi bleed --> hgb 7.4-->8.7 -> transfuse prn basis --> anemia panel has been reviewed, results pending --> no hemolysis is noted --> 2 units prbc in 06/10 --> egd/colo pending # Hypokalemia --> k has been repleted --> as per renal care # Generalized weakness. --> is likely due to above -> pt as needed and ot # Dvt ppx scds Appreciate consultation and dw Rn Subjective Constitutional: Denies: no symptoms, chills, fever, malaise, weakness, other HEENT: Denies: no symptoms, eye pain, blurred vision, tearing, double vision, ear pain, ear discharge, nose pain, nose congestion, throat pain, throat swelling, mouth pain, mouth swelling, other Cardiovascular: Denies: no symptoms, chest pain, edema, irregular heart rate, lightheadedness, palpitations, syncope, other Genitourinary: Denies: no symptoms, burning, discharge, frequency, flank pain, hematuria, incontinence, pain, urgency, other Neurologic/Psychiatric: Denies: no symptoms, anxiety, depressed, emotional problems, headache, numbness, paresthesia, pre-existing deficit, seizure, tingling, tremors, weakness, other Endocrine: Denies: no symptoms, excessive sweating, flushing, intolerance to cold, intolerance to heat, increased hunger, increased thirst, increased urine, unexplained weight gain, unexplained weight loss, other Hematologic/Lymphatic: Denies: no symptoms, anemia, easy bleeding, easy bruising, adenopathy, other Allergies: Coded Allergies: No Known Allergies (Unverified , 06/10/20) Subjective 3 meds noted, no bleeding, ferritin 987, hgb better 3/ agreed to egd/colo as per gi, meds noted, no bleeding 06/14 awake, alert, no bleeding, labs noted, meds reviewed Objective Objective Current Medications Medications (Trade) Dose Ordered Sig/He Route PRN Reason Start Time Stop Time Status Last Admin Dose Admin Acetaminophen (Tylenol) 500 mg Q6H PRN ORAL Pain Scale (3-5) 06/11/20 11:30 07/11/20 11:29 06/11/20 12:56 Folic Acid (Folate) 3 mg DAILY ORAL 06/11/20 16:00 07/11/20 15:59 06/13/20 09:23 Thiamine HCl (Vitamin B1) 100 mg DAILY ORAL 06/11/20 16:00 07/11/20 15:59 06/13/20 09:23 Last 24 Hour Vital Signs Date Time Temp Pulse Resp B/P (MAP) Pulse Ox O2 Delivery O2 Flow Rate FiO2 06/14/20 04:00 63 06/14/20 04:00 97.9 63 16 106/63 (77) 98 06/14/20 00:00 60 06/14/20 00:00 97.7 62 16 98/65 (76) 97 06/13/20 21:00 Room Air 06/13/20 20:00 98.2 63 17 90/56 (67) 99 06/13/20 20:00 54 06/13/20 16:00 48 06/13/20 16:00 97.9 77 21 94/62 (73) 97 77 06/13/20 12:00 61 06/13/20 12:00 97.1 79 20 90/64 (73) 97 06/13/20 09:00 Room Air 06/13/20 08:00 58 06/13/20 08:00 98.2 62 20 101/67 (78) 97 06/13/20 04:00 97.9 66 18 93/63 (73) 98 06/13/20 04:00 48 06/13/20 00:00 97.5 61 20 90/58 (69) 100 06/13/20 00:00 48 06/12/20 21:00 Room Air 06/12/20 20:00 52 06/12/20 20:00 97.5 67 18 106/76 (86) 97 06/12/20 16:00 96.4 68 18 99/57 (71) 100 06/12/20 16:00 67 06/12/20 12:00 96.8 67 18 103/67 (79) 100 06/12/20 12:00 63 06/12/20 09:00 Room Air 06/12/20 08:00 75 06/12/20 08:00 97.7 74 18 98/73 (81) 100 Intake and Output 06/13/20 06/14/20 19:00 07:00 Intake Total 480 ml Balance 480 ml Intake Oral 480 ml # Voids 4 Labs Test 06/11/20 16:00 06/11/20 17:20 06/12/20 05:20 06/13/20 08:45 Urine Color Brown Urine Appearance Cloudy Urine pH 6 (4.5-8.0) Urine Specific Register 1.010 (1.005-1.035) Urine Protein 2+ (NEGATIVE) Urine Glucose (UA) Negative (NEGATIVE) Urine Ketones 3+ (NEGATIVE) Urine Blood 2+ (NEGATIVE) Urine Nitrite Positive (NEGATIVE) Urine Bilirubin 2+ (NEGATIVE) Urine Ictotest Positive (NEGATIVE) Urine Urobilinogen 12 MG/DL (0.0-1.0) Urine Leukocyte Esterase 2+ (NEGATIVE) Urine RBC 2-4 /HPF (0 - 2) Urine WBC 5-10 /HPF (0 - 2) Urine Squamous Epithelial Cells Moderate /LPF (NONE/OCC) Urine Amorphous Sediment Moderate /LPF (NONE) Urine Bacteria Moderate /HPF (NONE) Urine Opiates Screen Negative (NEGATIVE) Urine Barbiturates Screen Negative (NEGATIVE) Phencyclidine (PCP) Screen Negative (NEGATIVE) Urine Amphetamines Screen Negative (NEGATIVE) Urine Benzodiazepines Screen Negative (NEGATIVE) Urine Cocaine Screen Negative (NEGATIVE) Urine Marijuana (THC) Screen Negative (NEGATIVE) Sodium Level 134 MMOL/L (136-145) 134 MMOL/L (136-145) 137 MMOL/L (136-145) Potassium Level 3.7 MMOL/L (3.5-5.1) 4.3 MMOL/L (3.5-5.1) 4.0 MMOL/L (3.5-5.1) Chloride Level 99 MMOL/L (98-107) 102 MMOL/L (98-107) 106 MMOL/L (98-107) Carbon Dioxide Level 26 MMOL/L (21-32) 26 MMOL/L (21-32) 25 MMOL/L (21-32) Anion Gap 9 mmol/L (5-15) 6 mmol/L (5-15) 6 mmol/L (5-15) Blood Urea Nitrogen 8 mg/dL (7-18) 5 mg/dL (7-18) 4 mg/dL (7-18) Creatinine 0.6 MG/DL (0.55-1.30) 0.5 MG/DL (0.55-1.30) 0.5 MG/DL (0.55-1.30) Estimat Glomerular Filtration Rate > 60 mL/min (>60) > 60 mL/min (>60) > 60 mL/min (>60) Glucose Level 101 MG/DL (74-106) 107 MG/DL (74-106) 81 MG/DL (74-106) Calcium Level 8.2 MG/DL (8.5-10.1) 7.7 MG/DL (8.5-10.1) 7.9 MG/DL (8.5-10.1) White Blood Count 5.8 K/UL (4.8-10.8) 6.1 K/UL (4.8-10.8) Red Blood Count 2.71 M/UL (4.20-5.40) 2.65 M/UL (4.20-5.40) Hemoglobin 8.7 G/DL (12.0-16.0) 8.4 G/DL (12.0-16.0) Hematocrit 25.4 % (37.0-47.0) 25.7 % (37.0-47.0) Mean Corpuscular Volume 94 FL (80-99) 97 FL (80-99) Mean Corpuscular Hemoglobin 32.2 PG (27.0-31.0) 31.7 PG (27.0-31.0) Mean Corpuscular Hemoglobin Concent 34.3 G/DL (32.0-36.0) 32.7 G/DL (32.0-36.0) Red Cell Distribution Width 15.9 % (11.6-14.8) 16.3 % (11.6-14.8) Platelet Count 196 K/UL (150-450) 207 K/UL (150-450) Mean Platelet Volume 6.3 FL (6.5-10.1) 6.7 FL (6.5-10.1) Neutrophils (%) (Auto) 53.8 % (45.0-75.0) 54.3 % (45.0-75.0) Lymphocytes (%) (Auto) 34.9 % (20.0-45.0) 35.1 % (20.0-45.0) Monocytes (%) (Auto) 9.6 % (1.0-10.0) 8.0 % (1.0-10.0) Eosinophils (%) (Auto) 1.1 % (0.0-3.0) 1.8 % (0.0-3.0) Basophils (%) (Auto) 0.6 % (0.0-2.0) 0.9 % (0.0-2.0) Uric Acid 3.2 MG/DL (2.6-7.2) Phosphorus Level 3.1 MG/DL (2.5-4.9) 2.9 MG/DL (2.5-4.9) Magnesium Level 2.2 MG/DL (1.8-2.4) 2.1 MG/DL (1.8-2.4) Total Bilirubin 0.9 MG/DL (0.2-1.0) 0.5 MG/DL (0.2-1.0) Aspartate Amino Transf (AST/SGOT) 49 U/L (15-37) 42 U/L (15-37) Alanine Aminotransferase (ALT/SGPT) 34 U/L (12-78) 21 U/L (12-78) Alkaline Phosphatase 181 U/L (46-116) 154 U/L (46-116) C-Reactive Protein, Quantitative 0.7 mg/dL (0.00-0.90) 0.7 mg/dL (0.00-0.90) Pro-B-Type Natriuretic Peptide 336 pg/mL (0-125) Total Protein 4.9 G/DL (6.4-8.2) 4.8 G/DL (6.4-8.2) Albumin 1.6 G/DL (3.4-5.0) 2.1 G/DL (3.4-5.0) Globulin 3.3 g/dL 2.7 g/dL Albumin/Globulin Ratio 0.5 (1.0-2.7) 0.8 (1.0-2.7) Triglycerides Level 91 MG/DL (30-150) Cholesterol Level 161 MG/DL (< 200) LDL Cholesterol 94 mg/dL (<100) HDL Cholesterol 29 MG/DL (40-60) Cholesterol/HDL Ratio 5.6 (3.3-4.4) Lipase 100 U/L (73-393) Troponin I 0.014 ng/mL (0.000-0.056) Thyroid Stimulating Hormone (TSH) 1.998 uiU/mL (0.358-3.740) Test 06/13/20 18:50 06/14/20 03:21 Troponin I 0.014 ng/mL (0.000-0.056) 0.015 ng/mL (0.000-0.056) White Blood Count 6.1 K/UL (4.8-10.8) Red Blood Count 2.71 M/UL (4.20-5.40) Hemoglobin 8.7 G/DL (12.0-16.0) Hematocrit 26.4 % (37.0-47.0) Mean Corpuscular Volume 97 FL (80-99) Mean Corpuscular Hemoglobin 32.2 PG (27.0-31.0) Mean Corpuscular Hemoglobin Concent 33.0 G/DL (32.0-36.0) Red Cell Distribution Width 17.1 % (11.6-14.8) Platelet Count 227 K/UL (150-450) Mean Platelet Volume 7.1 FL (6.5-10.1) Neutrophils (%) (Auto) 60.2 % (45.0-75.0) Lymphocytes (%) (Auto) 29.4 % (20.0-45.0) Monocytes (%) (Auto) 7.9 % (1.0-10.0) Eosinophils (%) (Auto) 2.1 % (0.0-3.0) Basophils (%) (Auto) 0.3 % (0.0-2.0) Sodium Level 139 MMOL/L (136-145) Potassium Level 3.3 MMOL/L (3.5-5.1) Chloride Level 106 MMOL/L (98-107) Carbon Dioxide Level 23 MMOL/L (21-32) Anion Gap 10 mmol/L (5-15) Blood Urea Nitrogen 4 mg/dL (7-18) Creatinine 0.5 MG/DL (0.55-1.30) Estimat Glomerular Filtration Rate > 60 mL/min (>60) Glucose Level 74 MG/DL (74-106) Calcium Level 8.3 MG/DL (8.5-10.1) Pro-B-Type Natriuretic Peptide 454 pg/mL (0-125) Micro Microbiology Date/Time Source Procedure Growth Status 06/13/20 16:20 Nasopharynx SARS-CoV-2 Antigen (Rapid)([place]) - Final Complete Height (Feet): 5 Height (Inches): 4.00 Weight (Pounds): 130 Objective General: Awake and alert, nad HEENT: NC/AT. EOMI. Cardiovascular: RRR. S1 and S2 normal. No murmur appreciated Resp: Normal work of breathing. No cough, wheezing or crackles appreciated Abdomen: Abdomen is soft, nondistended. Nontender. Skin: Intact. No abrasions, laceration or rash over the exposed skin MSK: Normal tone and bulk. Moving all extremities. No obvious deformity. Neuro: Awake and alert. Mentating appropriately. Alon Solares MD Jun 14, 2020 06:24
--- NOTE | 2020-06-14 06:32 | NUR ---
NURSE HAND-OFF REPORT: Important Events on Shift: Per Tanner, okay to continue bowel prep until 0900 today. Patient Status: full code Diet: NPO other than bowel prep until 0900. Pending Orders: EGD, colonoscopy Pending Results/Labs: none Pending MD notification: none Latest Vital Signs: Temperature 97.9 , Pulse 63 , B/P 106/63 , Respiratory Rate 16 , O2 SAT 98 , Room Air, O2 Flow Rate . Vital Sign Comment: stable EKG Rhythm: Sinus Rhythm Rhythm change?: N MD Notified?: Micaela Garcia MD Response: N Latest Ortiz Fall Score: 30 Fall Risk: Medium Risk Safety Measures: Call light Within Reach, Bed Alarm Zone 2, Side Rails Side Rails x2, Bed position Low and Locked. Fall Precautions: Patient Fall Education, yellow gown, yellow socks Report to be given to Jolynn Bain RN
--- NOTE | 2020-06-14 08:12 | NUR ---
NURSE NOTES: Received patient report from MAK Cash. Patient is AO x4 awake and shows no signs of distress or pain at the time. Patient is on room air and shows no signs of respiratory distress. Patient is almost finished with bowel prep will be NPO once finished. IV is intact and patent. There are no signs of erythema, infiltration, or bleeding. Bed is in the lowest position, call light is within reach, side rails up x3. Will continue to monitor.
[2020-06-14] MEDS: Thiamine 100mg tab ORAL SCH (08:42)
--- NOTE | 2020-06-14 09:53 | Cardiac Electrophysiology PN ---
Assessment/Plan Assessment/Plan 1. Bradycardia. Ruled out for CA. HR better off midodrine 2. Severe anemia, hemoglobin 7.4. The patient will be undergoing EGD and colonoscopy today 3. History of alcohol use, on thiamine and folate. 4. History of hypertension. Currently, blood pressure is low 5. Severe hypokalemia, was replaced by Dr. Mosley. Subjective Subjective Alert in NAD. NPO for EGD and colonoscopy today Objective Last 24 Hour Vital Signs Date Time Temp Pulse Resp B/P (MAP) Pulse Ox O2 Delivery O2 Flow Rate FiO2 06/14/20 08:00 98.2 67 21 101/67 (78) 96 06/14/20 04:00 63 06/14/20 04:00 97.9 63 16 106/63 (77) 98 06/14/20 00:00 60 06/14/20 00:00 97.7 62 16 98/65 (76) 97 06/13/20 21:00 Room Air 06/13/20 20:00 98.2 63 17 90/56 (67) 99 06/13/20 20:00 54 06/13/20 16:00 48 06/13/20 16:00 97.9 77 21 94/62 (73) 97 77 06/13/20 12:00 61 06/13/20 12:00 97.1 79 20 90/64 (73) 97 Intake and Output 06/13/20 06/14/20 19:00 07:00 Intake Total 480 ml Balance 480 ml Intake Oral 480 ml # Voids 4 Laboratory Tests Test 06/13/20 18:50 06/14/20 03:21 Troponin I 0.014 ng/mL (0.000-0.056) 0.015 ng/mL (0.000-0.056) White Blood Count 6.1 K/UL (4.8-10.8) Red Blood Count 2.71 M/UL (4.20-5.40) L Hemoglobin 8.7 G/DL (12.0-16.0) L Hematocrit 26.4 % (37.0-47.0) L Mean Corpuscular Volume 97 FL (80-99) Mean Corpuscular Hemoglobin 32.2 PG (27.0-31.0) H Mean Corpuscular Hemoglobin Concent 33.0 G/DL (32.0-36.0) Red Cell Distribution Width 17.1 % (11.6-14.8) H Platelet Count 227 K/UL (150-450) Mean Platelet Volume 7.1 FL (6.5-10.1) Neutrophils (%) (Auto) 60.2 % (45.0-75.0) Lymphocytes (%) (Auto) 29.4 % (20.0-45.0) Monocytes (%) (Auto) 7.9 % (1.0-10.0) Eosinophils (%) (Auto) 2.1 % (0.0-3.0) Basophils (%) (Auto) 0.3 % (0.0-2.0) Sodium Level 139 MMOL/L (136-145) Potassium Level 3.3 MMOL/L (3.5-5.1) L Chloride Level 106 MMOL/L (98-107) Carbon Dioxide Level 23 MMOL/L (21-32) Anion Gap 10 mmol/L (5-15) Blood Urea Nitrogen 4 mg/dL (7-18) L Creatinine 0.5 MG/DL (0.55-1.30) L Estimat Glomerular Filtration Rate > 60 mL/min (>60) Glucose Level 74 MG/DL (74-106) Calcium Level 8.3 MG/DL (8.5-10.1) L Pro-B-Type Natriuretic Peptide 454 pg/mL (0-125) H Microbiology Date/Time Source Procedure Growth Status 06/13/20 16:20 Nasopharynx SARS-CoV-2 Antigen (Rapid)([place]) - Final Complete 06/11/20 16:00 Urine,Clean Catch Urine Culture - Final Mixed Urogenital Contaminants Complete Objective HEAD AND NECK: No JVD. LUNGS: Clear. CARDIOVASCULAR: Regular S1 and S2 with no gallop or murmur. ABDOMEN: Soft. EXTREMITIES: No pitting edema. Gil Garcia MD Jun 14, 2020 09:53
--- NOTE | 2020-06-14 12:29 | Anethesia Preoperative Eval ---
Anesthesia Pre-op PMH/ROS General Date of Evaluation: Jun 14, 2020 Anesthesiologist: Huseyin ASA Score: ASA 2 Mallampati Score Class I : Soft palate, uvula, fauces, pillars visible Class II: Soft palate, uvula, fauces visible Class III: Soft palate, base of uvula visible Class IV: Only hard plate visible Mallampati Classification: Class I Surgeon: Christianne Diagnosis: Anemia Surgical Procedure: EGD and colonoscopy Anesthesia History: none Family History: no anesthesia problems Allergies: Coded Allergies: No Known Allergies (Unverified , 06/10/20) Medications: see eMAR Patient NPO?: Yes NPO Date: Jun 14, 2020 NPO Time: 00:00 Past Medical History Cardiovascular: Denies: HTN, CAD, LA, valve dz, arrhythmia, other Pulmonary: Denies: asthma, COPD, NAKIA, other Gastrointestinal/Genitourinary: Denies: GERD, CRI, ESRD, other Neurologic/Psychiatric: Denies: dementia, CVA, depression/anxiety, TIA, other Endocrine: Reports: other - hypokalemia; Denies: DM, hypothyroidism, steroids HEENT: Denies: cataract (L), cataract (R), glaucoma, QUILEUTE (L), QUILEUTE (R), other Hematology/Immune: Reports: anemia; Denies: DVT, bleeding disorder, other Musculoskeletal/Integumentary: Denies: OA, RA, DJD, DDD, edema, other PSxH Narrative: denies Anesthesia Pre-op Phys. Exam Physician Exam Last Vital Signs Date Time Temp Pulse Resp B/P (MAP) Pulse Ox O2 Delivery O2 Flow Rate FiO2 06/14/20 12:00 96.8 76 22 106/76 (86) 97 06/14/20 09:00 Room Air Constitutional: NAD Cardiovascular: RRR Respiratory: CTA Airway Exam Mallampati Score: Class I MO: full ROM: full Anesthesia Pre-op A/P Labs Hematology Test 06/14/20 03:21 White Blood Count 6.1 K/UL (4.8-10.8) Red Blood Count 2.71 M/UL (4.20-5.40) L Hemoglobin 8.7 G/DL (12.0-16.0) L Hematocrit 26.4 % (37.0-47.0) L Mean Corpuscular Volume 97 FL (80-99) Mean Corpuscular Hemoglobin 32.2 PG (27.0-31.0) H Mean Corpuscular Hemoglobin Concent 33.0 G/DL (32.0-36.0) Red Cell Distribution Width 17.1 % (11.6-14.8) H Platelet Count 227 K/UL (150-450) Mean Platelet Volume 7.1 FL (6.5-10.1) Neutrophils (%) (Auto) 60.2 % (45.0-75.0) Lymphocytes (%) (Auto) 29.4 % (20.0-45.0) Monocytes (%) (Auto) 7.9 % (1.0-10.0) Eosinophils (%) (Auto) 2.1 % (0.0-3.0) Basophils (%) (Auto) 0.3 % (0.0-2.0) Chemistry Test 06/13/20 18:50 06/14/20 03:21 Troponin I 0.014 ng/mL (0.000-0.056) 0.015 ng/mL (0.000-0.056) Sodium Level 139 MMOL/L (136-145) Potassium Level 3.3 MMOL/L (3.5-5.1) L Chloride Level 106 MMOL/L (98-107) Carbon Dioxide Level 23 MMOL/L (21-32) Anion Gap 10 mmol/L (5-15) Blood Urea Nitrogen 4 mg/dL (7-18) L Creatinine 0.5 MG/DL (0.55-1.30) L Estimat Glomerular Filtration Rate > 60 mL/min (>60) Glucose Level 74 MG/DL (74-106) Calcium Level 8.3 MG/DL (8.5-10.1) L Pro-B-Type Natriuretic Peptide 454 pg/mL (0-125) H Studies Pre-op Studies: EKG - sr Risk Assessment & Plan Assessment: asa II Plan: MAC Status Change Before Surgery: No Pre-Antibiotics Drug: N/A Lacy Fontanez MD Jun 14, 2020 12:29
--- NOTE | 2020-06-14 13:07 | Nephrology Progress Note ---
Assessment/Plan Problem List: (1) Hypokalemia (2) Anemia (3) Electrolyte imbalance (4) Malnutrition Assessment Severe hypokalemia Severe anemia Malnutrition, hypoalbuminemia Low phosphorus low magnesium Plan June 14: Renal parameters stable. Low potassium addressed. Continue per consultants. June 13. Renal parameters and electrolytes now all normalized. Continue per consultants. June 12: Labs reviewed. Electrolyte abnormalities , low phosphorus low magnesium addressed. Continue per consultants. Previously: Replacement of the potassium, magnesium, phosphorus per order Urine for analysis and urine for tox screen Replace folate and thiamine orally Continue to monitor electrolytes and renal parameters Per orders Subjective ROS Limited/Unobtainable: No Constitutional: Reports: malaise, weakness Objective Objective Last 24 Hour Vital Signs Date Time Temp Pulse Resp B/P (MAP) Pulse Ox O2 Delivery O2 Flow Rate FiO2 06/14/20 12:00 96.8 76 22 106/76 (86) 97 06/14/20 09:00 Room Air 06/14/20 08:00 60 06/14/20 08:00 98.2 67 21 101/67 (78) 96 06/14/20 04:00 63 06/14/20 04:00 97.9 63 16 106/63 (77) 98 06/14/20 00:00 60 06/14/20 00:00 97.7 62 16 98/65 (76) 97 06/13/20 21:00 Room Air 06/13/20 20:00 98.2 63 17 90/56 (67) 99 06/13/20 20:00 54 06/13/20 16:00 48 06/13/20 16:00 97.9 77 21 94/62 (73) 97 77 Intake and Output 06/13/20 06/14/20 19:00 07:00 Intake Total 480 ml Balance 480 ml Intake Oral 480 ml # Voids 4 Current Medications Medications (Trade) Dose Ordered Sig/He Route PRN Reason Start Time Stop Time Status Last Admin Dose Admin Acetaminophen (Tylenol) 500 mg Q6H PRN ORAL Pain Scale (3-5) 06/11/20 11:30 07/11/20 11:29 06/11/20 12:56 Folic Acid (Folate) 3 mg DAILY ORAL 06/11/20 16:00 07/11/20 15:59 06/14/20 08:43 Pantoprazole (Protonix) 40 mg EVERY 12 HOURS ORAL 06/14/20 09:00 07/14/20 08:59 06/14/20 08:42 Potassium Chloride (K-Dur) 40 meq TWICE A DAY ORAL 06/14/20 09:00 09/12/20 08:59 06/14/20 08:43 Thiamine HCl (Vitamin B1) 100 mg DAILY ORAL 06/11/20 16:00 07/11/20 15:59 06/14/20 08:42 Laboratory Tests 06/13/20 18:50: Troponin I 0.014 06/14/20 03:21: Troponin I 0.015, White Blood Count 6.1, Red Blood Count 2.71L, Hemoglobin 8.7L, Hematocrit 26.4L, Mean Corpuscular Volume 97, Mean Corpuscular Hemoglobin 32.2H, Mean Corpuscular Hemoglobin Concent 33.0, Red Cell Distribution Width 17.1H, Platelet Count 227, Mean Platelet Volume 7.1, Neutrophils (%) (Auto) 60.2, Lymphocytes (%) (Auto) 29.4, Monocytes (%) (Auto) 7.9, Eosinophils (%) (Auto) 2.1, Basophils (%) (Auto) 0.3, Sodium Level 139, Potassium Level 3.3L, Chloride Level 106, Carbon Dioxide Level 23, Anion Gap 10, Blood Urea Nitrogen 4L, Creatinine 0.5L, Estimat Glomerular Filtration Rate > 60, Glucose Level 74, Calcium Level 8.3L, Pro-B-Type Natriuretic Peptide 454H Height (Feet): 5 Height (Inches): 4.00 Weight (Pounds): 130 General Appearance: no apparent distress Cardiovascular: normal rate Respiratory/Chest: decreased breath sounds Abdomen: distended Objective No change Byron Mosley MD Jun 14, 2020 13:07
--- NOTE | 2020-06-14 13:56 | NUR ---
INSURANCE CLINICALS FAXED TO [facility] PH#[phone] FAX# [phone]
--- NOTE | 2020-06-14 14:11 | Cardiology Report ---
APPROVED REPORT EXAM: Two-dimensional and M-mode echocardiogram with Doppler and color Doppler. INDICATION SOB M-Mode DIMENSIONS IVSd0.6 (0.7-1.1cm)Left Atrium (MM)2.6 (1.6-4.0cm) LVDd4.7 (3.5-5.6cm)Aortic Root1.9 (2.0-3.7cm) PWd0.9 (0.7-1.1cm)Aortic Cusp Exc.1.5 (1.5-2.0cm) IVSs1.2 cmEPSS0.5 (>1.0cm) LVDs3.4 (2.5-4.0cm) PWs1.3 cm <Conclusion> Technically difficult study due to poor acoustical windows. Study quality precludes accurate assessment of regional wall motion. Normal left ventricular chamber size and systolic function. Left ventricular ejection fraction estimated to be 60 %. No evidence of left ventricular hypertrophy. No evidence of pericardial effusion. All other cardiac chamber sizes are within normal limits. Focal aortic valve sclerosis with adequate cusp excursion. Thickened mitral valve leaflets with normal excursion. Mitral annulus and aortic root calcification. Pulmonic valve not well visualized. Normal tricuspid valve structure. IVC at normal size with physiologic collapse. A color flow and spectral Doppler study was performed and revealed: No aortic regurgitation. Trace mitral regurgitation. Normal left ventricular diastolic function. Mild tricuspid regurgitation. Tricuspid systolic velocities suggests peak right ventricular systolic pressure of 34 mmHg.
[2020-06-14] MEDS ORDERED: Lidocaine 1% MPF 10mg/ml 5ml ONE (14:40)
[2020-06-14] MEDS ORDERED: LR 1000ml ONE (14:40)
[2020-06-14] MEDS ORDERED: NS 500ML IVPB ONE ×2 (14:45→15:30)
--- NOTE | 2020-06-14 15:00 | General Progress Note ---
Subjective Allergies: Coded Allergies: No Known Allergies (Unverified , 06/10/20) Subjective Feels OK NPO for EGD/Colon labs noted POST PROCEDURE ADDENDUM EGD: - 4-5 cm hiatal hernia - mild peptic stricture - mild erosive duodenitis Colon: - moderate scattered diverticulosis - 4-5 cm proximal ascending colon mass - likely large villous adenoma, r/o colon CA (multiple bx and tattoo) Rec - f/u path - check CEA - PPI - CT Objective Last 24 Hour Vital Signs Date Time Temp Pulse Resp B/P (MAP) Pulse Ox O2 Delivery O2 Flow Rate FiO2 06/14/20 12:00 96.8 76 22 106/76 (86) 97 06/14/20 12:00 65 06/14/20 09:00 Room Air 06/14/20 08:00 60 06/14/20 08:00 98.2 67 21 101/67 (78) 96 06/14/20 04:00 63 06/14/20 04:00 97.9 63 16 106/63 (77) 98 06/14/20 00:00 60 06/14/20 00:00 97.7 62 16 98/65 (76) 97 06/13/20 21:00 Room Air 06/13/20 20:00 98.2 63 17 90/56 (67) 99 06/13/20 20:00 54 06/13/20 16:00 48 06/13/20 16:00 97.9 77 21 94/62 (73) 97 77 Intake and Output 06/13/20 06/14/20 19:00 07:00 Intake Total 480 ml Balance 480 ml Intake Oral 480 ml # Voids 4 Laboratory Tests 06/13/20 18:50: Troponin I 0.014 06/14/20 03:21: Troponin I 0.015, White Blood Count 6.1, Red Blood Count 2.71L, Hemoglobin 8.7L, Hematocrit 26.4L, Mean Corpuscular Volume 97, Mean Corpuscular Hemoglobin 32.2H, Mean Corpuscular Hemoglobin Concent 33.0, Red Cell Distribution Width 17.1H, Platelet Count 227, Mean Platelet Volume 7.1, Neutrophils (%) (Auto) 60.2, Lymphocytes (%) (Auto) 29.4, Monocytes (%) (Auto) 7.9, Eosinophils (%) (Auto) 2.1, Basophils (%) (Auto) 0.3, Sodium Level 139, Potassium Level 3.3L, Chloride Level 106, Carbon Dioxide Level 23, Anion Gap 10, Blood Urea Nitrogen 4L, Creatinine 0.5L, Estimat Glomerular Filtration Rate > 60, Glucose Level 74, Calcium Level 8.3L, Pro-B-Type Natriuretic Peptide 454H Height (Feet): 5 Height (Inches): 4.00 Weight (Pounds): 130 Objective Thin woman NCAT supple CTA RR abd soft no edema Assessment/Plan Status: progressing Assessment/Plan: Assessment - Anemia - OB (-) stools - H/o HTN - Hypokalemia - corrected Recommendations - follow H&H - EGD/colon Ezekiel Abraham MD Jun 14, 2020 15:00
--- NOTE | 2020-06-14 15:01 | Pre-Procedure Note/Attestation ---
Pre-Procedure Note/Attestation Complete Prior to Procedure Planned Procedure: not applicable Procedure Narrative: EGD COLON Indications for Procedure Pre-Operative Diagnosis: anemia Attestation I attest that I discussed the nature of the procedure; its benefits; risks and complications; and alternatives (and the risks and benefits of such alternatives), prior to the procedure, with the patient (or the patient's legal labor representative). I attest that, if there was a reasonable possibility of needing a blood transfu bart, the patient (or the patient's legal labor representative) was given the [facility] standardized written summary, pursuant to the [place] Blood Safety Act ([place] Health and Safety Code # 1645, as amended). I attest that I re-evaluated the patient just prior to the surgery and that there has been no change in the patient's H&P, except as documented below: Ezekiel Abraham MD Jun 14, 2020 15:01
--- NOTE | 2020-06-14 15:49 | Immediate Post-Op Evaluation ---
Immediate Post-Op Evalulation Immediate Post-Op Evalulation Procedure: egd and colonoscopy Date of Evaluation: Jun 14, 2020 Time of Evaluation: 15:50 IV Fluids: 600 Blood Products: 0 Estimated Blood Loss: 0 Urinary Output: 0 Blood Pressure Systolic: 106 Blood Pressure Diastolic: 76 Pulse Rate: 68 Respiratory Rate: 18 O2 Sat by Pulse Oximetry: 99 Temperature (Fahrenheit): 98.7 Pain Score (1-10): 0 Nausea: No Vomiting: No Complications 0 Patient Status: awake, reacts, patent, none Hydration Status: adequate Drug: N/A Lacy Fontanez MD Jun 14, 2020 15:49
--- NOTE | 2020-06-14 15:50 | 48 Hour Post Anesthesia Eval ---
Post Anesthesia Evaluation Procedure: egd and colonoscopy Date of Evaluation: Jun 14, 2020 Airway: patent Nausea: No Vomiting: No Pain Intensity: 0 Hydration Status: adequate Cardiopulmonary Status: at baseline Mental Status/LOC: patient returned to baseline Post-Anesthesia Complications: 0 Follow-up care needed: ready to discharge Lacy Fontanez MD Jun 14, 2020 15:50
[2020-06-14] MEDS ORDERED: LR 1000ml 1,000 ML IVLG SCH (16:00)
[2020-06-14] MEDS ORDERED: DiphenhydrAMINE 50mg/ml Inj IVP PRN (16:00)
--- NOTE | 2020-06-14 19:31 | NUR ---
NURSE HAND-OFF REPORT: Important Events on Shift:[EGD and colonoscopy done. Patient shows no signs of distress ] Patient Status: []Full code Diet: []Regular Pending Orders: [] Pending Results/Labs:[] Pending MD notification:[] Latest Vital Signs: Temperature 98.1 , Pulse 61 , B/P 106 /72 , Respiratory Rate 15 , O2 SAT 97 , Nasal Cannula, O2 Flow Rate 3 . Vital Sign Comment: [] EKG Rhythm: Sinus Rhythm Rhythm change?: N MD Notified?: Micaela Garcia MD Response: Latest Ortiz Fall Score: 30 Fall Risk: Medium Risk Safety Measures: Call light Within Reach, Bed Alarm Zone 2, Side Rails Side Rails x2, Bed position Low and Locked. Fall Precautions: Patient Fall Education Report given to [MAK Cash].
--- NOTE | 2020-06-14 19:35 | NUR ---
NURSE NOTES: Important Events on Shift: Received report from Jolynn Bain RN. Pt is asleep in bed, appears to be comfortable. No signs or symptoms of pain or distress noted at this time. Will continue plan of care and close monitoring. Patient Status: full code Diet: NPO @ 0000; regular otherwise. Pending Orders: CT AB in AM Pending Results/Labs: cmp, CA antigen, mag, phos Pending MD notification: none Latest Vital Signs: Temperature 97.9 , Pulse 68 , B/P 101 /68 , Respiratory Rate 16 , O2 SAT 94 , Nasal Cannula, O2 Flow Rate 3 . Vital Sign Comment: per report, stable throughout shift EKG Rhythm: Sinus Rhythm Rhythm change?: N MD Notified?: - MD Response: - Latest Ortiz Fall Score: 30 Fall Risk: Medium Risk Safety Measures: Call light Within Reach, Bed Alarm Zone 2, Side Rails Side Rails x2, Bed position Low and Locked. Fall Precautions: Patient Fall Education, yellow socks, yellow gown
--- NOTE | 2020-06-14 21:21 | General Progress Note ---
Subjective ROS Limited/Unobtainable: Yes Allergies: Coded Allergies: No Known Allergies (Unverified , 06/10/20) Objective Last 24 Hour Vital Signs Date Time Temp Pulse Resp B/P (MAP) Pulse Ox O2 Delivery O2 Flow Rate FiO2 06/14/20 16:10 98.1 61 15 106/72 97 Nasal Cannula 3 06/14/20 15:55 63 17 102/65 97 Nasal Cannula 3 06/14/20 15:50 63 16 99/72 98 Nasal Cannula 3 06/14/20 15:49 68 18 99 06/14/20 15:46 98.7 68 15 106/76 98 Nasal Cannula 3 06/14/20 12:00 96.8 76 22 106/76 (86) 97 06/14/20 12:00 65 06/14/20 09:00 Room Air 06/14/20 08:00 60 06/14/20 08:00 98.2 67 21 101/67 (78) 96 06/14/20 04:00 63 06/14/20 04:00 97.9 63 16 106/63 (77) 98 06/14/20 00:00 60 06/14/20 00:00 97.7 62 16 98/65 (76) 97 Intake and Output 06/13/20 06/14/20 19:00 07:00 Intake Total 480 ml Balance 480 ml Intake Oral 480 ml # Voids 4 Laboratory Tests 06/14/20 03:21: White Blood Count 6.1, Red Blood Count 2.71L, Hemoglobin 8.7L, Hematocrit 26.4L, Mean Corpuscular Volume 97, Mean Corpuscular Hemoglobin 32.2H, Mean Corpuscular Hemoglobin Concent 33.0, Red Cell Distribution Width 17.1H, Platelet Count 227, Mean Platelet Volume 7.1, Neutrophils (%) (Auto) 60.2, Lymphocytes (%) (Auto) 29.4, Monocytes (%) (Auto) 7.9, Eosinophils (%) (Auto) 2.1, Basophils (%) (Auto) 0.3, Sodium Level 139, Potassium Level 3.3L, Chloride Level 106, Carbon Dioxide Level 23, Anion Gap 10, Blood Urea Nitrogen 4L, Creatinine 0.5L, Estimat Glomerular Filtration Rate > 60, Glucose Level 74, Calcium Level 8.3L, Troponin I 0.015, Pro-B-Type Natriuretic Peptide 454H Height (Feet): 5 Height (Inches): 4.00 Weight (Pounds): 130 Assessment/Plan Problem List: (1) Anemia ICD Codes: D64.9 - Anemia, unspecified SNOMED: 533193295 (2) Electrolyte imbalance ICD Codes: E87.8 - Other disorders of electrolyte and fluid balance, not elsewhere classified SNOMED: 950158351 (3) Malnutrition ICD Codes: E46 - Unspecified protein-calorie malnutrition SNOMED: 31436208 Status: progressing Assessment/Plan: check h/h monitor for bleeding afebrile s/p fall reviewed chart and labs Tesha Kerr MD Jun 14, 2020 21:21
[2020-06-15] VITALS: BP 101/68
[2020-06-15 04:00] VITALS: BP 95/63
--- NOTE | 2020-06-15 06:15 | NUR ---
NURSE HAND-OFF REPORT: Important Events on Shift: none Patient Status: full code Diet: NPO since @0000 Pending Orders: CT AB this AM Pending Results/Labs: AM labs Pending MD notification: none Latest Vital Signs: Temperature 97.2 , Pulse 72 , B/P 95 /63 , Respiratory Rate 20 , O2 SAT 100 , Nasal Cannula, O2 Flow Rate 3 . Vital Sign Comment: stable throughout shift. EKG Rhythm: Sinus Rhythm Rhythm change?: N MD Notified?: - MD Response: Latest Ortiz Fall Score: 30 Fall Risk: Medium Risk Safety Measures: Call light Within Reach, Bed Alarm Zone 2, Side Rails Side Rails x2, Bed position Low and Locked. Fall Precautions: Patient Fall Education, yellow socks Report to be given to Honey Hanson RN
--- NOTE | 2020-06-15 07:25 | NUR ---
NURSE NOTES: Received report from Lucy CORADO. Patient is A/A/O x4. Able to verbalize needs. patient appears upset. NPO. awaiting for CT abd wo contrast. shows no signs of distress or pain at the time. On room air and shows no signs of cardio-respiratory distress. PIV is intact and patent. no signs of erythema, infiltration, or bleeding. Bed is in the lowest position, call light is within reach, siderails up x3. Will continue to monitor.
[2020-06-15 07:42] VITALS: BP 109/93
[2020-06-15 08:26] LABS: BASOPHILS % (AUTO) 0.9 % (0.0-2.0); EOSINOPHILS % (AUTO) 0.5 % (0.0-3.0); HEMATOCRIT 27.7 % (37.0-47.0); HEMOGLOBIN 8.9 G/DL (12.0-16.0); LYMPHOCYTES % (AUTO) 29.1 % (20.0-45.0); MEAN CORPUSCULAR VOLUME 99 FL (80-99); MONOCYTES % (AUTO) 9.1 % (1.0-10.0); NEUTROPHILS % (AUTO) 60.4 % (45.0-75.0); PLATELET COUNT 226 K/UL (150-450); RED BLOOD COUNT 2.79 M/UL (4.20-5.40); RED CELL DISTRIBUTION WIDTH 16.8 % (11.6-14.8); WHITE BLOOD COUNT 6.1 K/UL (4.8-10.8)
[2020-06-15] MEDS: Thiamine 100mg tab ORAL SCH (08:26)
[2020-06-15 08:48] LABS: ALANINE AMINOTRANSFERASE 27 U/L (12-78); ALBUMIN/GLOBULIN RATIO 0.7 (1.0-2.7); ALKALINE PHOSPHATASE 162 U/L (46-116); ANION GAP 10 mmol/L (5-15); ASPARTATE AMINO TRANSFERASE 41 U/L (15-37); BILIRUBIN,TOTAL 0.6 MG/DL (0.2-1.0); BLOOD UREA NITROGEN 4 mg/dL (7-18); CALCIUM 8.4 MG/DL (8.5-10.1); CARBON DIOXIDE 20 MMOL/L (21-32); CHLORIDE 112 MMOL/L (98-107); CREATININE 0.5 MG/DL (0.55-1.30); POTASSIUM 4.8 MMOL/L (3.5-5.1); SODIUM 142 MMOL/L (136-145)
--- NOTE | 2020-06-15 08:52 | General Progress Note ---
Subjective ROS Limited/Unobtainable: Yes Allergies: Coded Allergies: No Known Allergies (Unverified , 06/10/20) Subjective wants to go home Objective Last 24 Hour Vital Signs Date Time Temp Pulse Resp B/P (MAP) Pulse Ox O2 Delivery O2 Flow Rate FiO2 06/15/20 07:42 97.7 81 17 109/93 (98) 100 06/15/20 04:00 97.2 77 20 95/63 (74) 100 06/15/20 04:00 72 06/15/20 00:00 97.9 68 16 101/68 (79) 94 06/15/20 00:00 68 06/14/20 21:00 Room Air 06/14/20 20:00 60 06/14/20 20:00 97.6 60 16 97/70 (79) 94 06/14/20 16:10 98.1 61 15 106/72 97 Nasal Cannula 3 06/14/20 15:55 63 17 102/65 97 Nasal Cannula 3 06/14/20 15:50 63 16 99/72 98 Nasal Cannula 3 06/14/20 15:49 68 18 99 06/14/20 15:46 98.7 68 15 106/76 98 Nasal Cannula 3 06/14/20 12:00 96.8 76 22 106/76 (86) 97 06/14/20 12:00 65 06/14/20 09:00 Room Air Intake and Output 06/14/20 06/15/20 19:00 07:00 Intake Total 600 ml Balance 600 ml IV Total 600 ml Laboratory Tests 06/15/20 07:36: White Blood Count 6.1, Red Blood Count 2.79L, Hemoglobin 8.9L, Hematocrit 27.7L, Mean Corpuscular Volume 99, Mean Corpuscular Hemoglobin 32.1H, Mean Corpuscular Hemoglobin Concent 32.3, Red Cell Distribution Width 16.8H, Platelet Count 226, Mean Platelet Volume 7.0, Neutrophils (%) (Auto) 60.4, Lymphocytes (%) (Auto) 29.1, Monocytes (%) (Auto) 9.1, Eosinophils (%) (Auto) 0.5, Basophils (%) (Auto) 0.9, Sodium Level [Pending], Potassium Level [Pending], Chloride Level [Pending], Carbon Dioxide Level [Pending], Blood Urea Nitrogen [Pending], Creatinine [Pending], Estimat Glomerular Filtration Rate [Pending], Glucose Level [Pending], Calcium Level [Pending], Phosphorus Level [Pending], Magnesium Level [Pending], Total Bilirubin [Pending], Aspartate Amino Transf (AST/SGOT) [Pending], Alanine Aminotransferase (ALT/SGPT) [Pending], Alkaline Phosphatase [Pending], Total Protein [Pending], Albumin [Pending], Globulin [Pending], Carcinoembryonic Antigen [Pending] Height (Feet): 5 Height (Inches): 4.00 Weight (Pounds): 130 General Appearance: no apparent distress EENT: normal ENT inspection Neck: supple Cardiovascular: normal rate Respiratory/Chest: decreased breath sounds Abdomen: hypoactive bowel sounds Extremities: non-tender Assessment/Plan Status: progressing Assessment/Plan: anemia s/p EGD and colonoscopy POST PROCEDURE ADDENDUM EGD: - 4-5 cm hiatal hernia - mild peptic stricture - mild erosive duodenitis Colon: - moderate scattered diverticulosis - 4-5 cm proximal ascending colon mass - likely large villous adenoma, r/o colon CA (multiple bx and tattoo) Rec - f/u path - check CEA - PPI - CT Claudio Faust MD Jun 15, 2020 08:52
--- NOTE | 2020-06-15 09:14 | Hematology/Onc Progress Note ---
Assessment/Plan Assessment/Plan Assessment and recs # Anemia r/o gi bleed --> hgb 7.4-->8.7 -> transfuse prn basis --> anemia panel has been reviewed, results pending --> no hemolysis is noted --> 2 units prbc in 06/10 --> egd/colo pending # Hypokalemia --> k has been repleted --> as per renal care # Generalized weakness. --> is likely due to above -> pt as needed and ot # Dvt ppx scds Appreciate consultation and dw R Subjective Allergies: Coded Allergies: No Known Allergies (Unverified , 06/10/20) Subjective 06/15: VS reviewed BP low, no bleeding noted. Objective Objective Current Medications Medications (Trade) Dose Ordered Sig/He Route PRN Reason Start Time Stop Time Status Last Admin Dose Admin Acetaminophen (Tylenol) 500 mg Q6H PRN ORAL Pain Scale (3-5) 06/11/20 11:30 07/11/20 11:29 06/11/20 12:56 Barium Sulfate (Readi-Cat 2) 450 ml NOW PRN ORAL Radiology Procedure 06/14/20 15:45 06/16/20 15:44 Folic Acid (Folate) 3 mg DAILY ORAL 06/11/20 16:00 07/11/20 15:59 06/15/20 08:26 Pantoprazole (Protonix) 40 mg EVERY 12 HOURS ORAL 06/14/20 09:00 07/14/20 08:59 06/15/20 08:26 Potassium Chloride (K-Dur) 40 meq TWICE A DAY ORAL 06/14/20 09:00 09/12/20 08:59 06/15/20 08:26 Thiamine HCl (Vitamin B1) 100 mg DAILY ORAL 06/11/20 16:00 07/11/20 15:59 06/15/20 08:26 Last 24 Hour Vital Signs Date Time Temp Pulse Resp B/P (MAP) Pulse Ox O2 Delivery O2 Flow Rate FiO2 06/15/20 08:00 67 06/15/20 07:42 97.7 81 17 109/93 (98) 100 06/15/20 04:00 97.2 77 20 95/63 (74) 100 06/15/20 04:00 72 06/15/20 00:00 97.9 68 16 101/68 (79) 94 06/15/20 00:00 68 06/14/20 21:00 Room Air 06/14/20 20:00 60 06/14/20 20:00 97.6 60 16 97/70 (79) 94 06/14/20 16:10 98.1 61 15 106/72 97 Nasal Cannula 3 06/14/20 15:55 63 17 102/65 97 Nasal Cannula 3 06/14/20 15:50 63 16 99/72 98 Nasal Cannula 3 06/14/20 15:49 68 18 99 06/14/20 15:46 98.7 68 15 106/76 98 Nasal Cannula 3 06/14/20 12:00 96.8 76 22 106/76 (86) 97 06/14/20 12:00 65 06/14/20 09:00 Room Air 06/14/20 08:00 60 06/14/20 08:00 98.2 67 21 101/67 (78) 96 06/14/20 04:00 63 06/14/20 04:00 97.9 63 16 106/63 (77) 98 06/14/20 00:00 60 06/14/20 00:00 97.7 62 16 98/65 (76) 97 06/13/20 21:00 Room Air 06/13/20 20:00 98.2 63 17 90/56 (67) 99 06/13/20 20:00 54 06/13/20 16:00 48 06/13/20 16:00 97.9 77 21 94/62 (73) 97 77 06/13/20 12:00 61 06/13/20 12:00 97.1 79 20 90/64 (73) 97 Intake and Output 06/14/20 06/15/20 19:00 07:00 Intake Total 600 ml Balance 600 ml IV Total 600 ml Labs Test 06/13/20 08:45 06/13/20 18:50 06/14/20 03:21 06/15/20 07:36 White Blood Count 6.1 K/UL (4.8-10.8) 6.1 K/UL (4.8-10.8) 6.1 K/UL (4.8-10.8) Red Blood Count 2.65 M/UL (4.20-5.40) 2.71 M/UL (4.20-5.40) 2.79 M/UL (4.20-5.40) Hemoglobin 8.4 G/DL (12.0-16.0) 8.7 G/DL (12.0-16.0) 8.9 G/DL (12.0-16.0) Hematocrit 25.7 % (37.0-47.0) 26.4 % (37.0-47.0) 27.7 % (37.0-47.0) Mean Corpuscular Volume 97 FL (80-99) 97 FL (80-99) 99 FL (80-99) Mean Corpuscular Hemoglobin 31.7 PG (27.0-31.0) 32.2 PG (27.0-31.0) 32.1 PG (27.0-31.0) Mean Corpuscular Hemoglobin Concent 32.7 G/DL (32.0-36.0) 33.0 G/DL (32.0-36.0) 32.3 G/DL (32.0-36.0) Red Cell Distribution Width 16.3 % (11.6-14.8) 17.1 % (11.6-14.8) 16.8 % (11.6-14.8) Platelet Count 207 K/UL (150-450) 227 K/UL (150-450) 226 K/UL (150-450) Mean Platelet Volume 6.7 FL (6.5-10.1) 7.1 FL (6.5-10.1) 7.0 FL (6.5-10.1) Neutrophils (%) (Auto) 54.3 % (45.0-75.0) 60.2 % (45.0-75.0) 60.4 % (45.0-75.0) Lymphocytes (%) (Auto) 35.1 % (20.0-45.0) 29.4 % (20.0-45.0) 29.1 % (20.0-45.0) Monocytes (%) (Auto) 8.0 % (1.0-10.0) 7.9 % (1.0-10.0) 9.1 % (1.0-10.0) Eosinophils (%) (Auto) 1.8 % (0.0-3.0) 2.1 % (0.0-3.0) 0.5 % (0.0-3.0) Basophils (%) (Auto) 0.9 % (0.0-2.0) 0.3 % (0.0-2.0) 0.9 % (0.0-2.0) Sodium Level 137 MMOL/L (136-145) 139 MMOL/L (136-145) 142 MMOL/L (136-145) Potassium Level 4.0 MMOL/L (3.5-5.1) 3.3 MMOL/L (3.5-5.1) 4.8 MMOL/L (3.5-5.1) Chloride Level 106 MMOL/L (98-107) 106 MMOL/L (98-107) 112 MMOL/L (98-107) Carbon Dioxide Level 25 MMOL/L (21-32) 23 MMOL/L (21-32) 20 MMOL/L (21-32) Anion Gap 6 mmol/L (5-15) 10 mmol/L (5-15) 10 mmol/L (5-15) Blood Urea Nitrogen 4 mg/dL (7-18) 4 mg/dL (7-18) 4 mg/dL (7-18) Creatinine 0.5 MG/DL (0.55-1.30) 0.5 MG/DL (0.55-1.30) 0.5 MG/DL (0.55-1.30) Estimat Glomerular Filtration Rate > 60 mL/min (>60) > 60 mL/min (>60) > 60 mL/min (>60) Glucose Level 81 MG/DL (74-106) 74 MG/DL (74-106) 62 MG/DL (74-106) Calcium Level 7.9 MG/DL (8.5-10.1) 8.3 MG/DL (8.5-10.1) 8.4 MG/DL (8.5-10.1) Phosphorus Level 2.9 MG/DL (2.5-4.9) Magnesium Level 2.1 MG/DL (1.8-2.4) Total Bilirubin 0.5 MG/DL (0.2-1.0) 0.6 MG/DL (0.2-1.0) Aspartate Amino Transf (AST/SGOT) 42 U/L (15-37) 41 U/L (15-37) Alanine Aminotransferase (ALT/SGPT) 21 U/L (12-78) 27 U/L (12-78) Alkaline Phosphatase 154 U/L (46-116) 162 U/L (46-116) Troponin I 0.014 ng/mL (0.000-0.056) 0.014 ng/mL (0.000-0.056) 0.015 ng/mL (0.000-0.056) C-Reactive Protein, Quantitative 0.7 mg/dL (0.00-0.90) Total Protein 4.8 G/DL (6.4-8.2) 5.0 G/DL (6.4-8.2) Albumin 2.1 G/DL (3.4-5.0) 2.0 G/DL (3.4-5.0) Globulin 2.7 g/dL 3.0 g/dL Albumin/Globulin Ratio 0.8 (1.0-2.7) 0.7 (1.0-2.7) Thyroid Stimulating Hormone (TSH) 1.998 uiU/mL (0.358-3.740) Pro-B-Type Natriuretic Peptide 454 pg/mL (0-125) Height (Feet): 5 Height (Inches): 4.00 Weight (Pounds): 130 Objective General: Awake and alert, nad HEENT: NC/AT. EOMI. Cardiovascular: RRR. S1 and S2 normal. No murmur appreciated Resp: Normal work of breathing. No cough, wheezing or crackles appreciated Abdomen: Abdomen is soft, nondistended. Nontender. Skin: Intact. No abrasions, laceration or rash over the exposed skin MSK: Normal tone and bulk. Moving all extremities. No obvious deformity. Neuro: Awake and alert. Mentating appropriately. Marianna Nunes NP Jun 15, 2020 09:14
[2020-06-15 09:18] LABS: PHOSPHORUS 2.7 MG/DL (2.5-4.9)
[2020-06-15] MEDS ORDERED: 1/2 NS 1000ml IV ONE (09:50)
[2020-06-15 12:00] VITALS: BP 103/79
--- NOTE | 2020-06-15 13:27 | Cardiac Electrophysiology PN ---
Assessment/Plan Assessment/Plan 1. Bradycardia. Ruled out for NM. HR better off midodrine 2. Severe anemia, hemoglobin 7.4. S/P EGD and colonoscopy 06/14/20 EGD: - 4-5 cm hiatal hernia - mild peptic stricture - mild erosive duodenitis Colon: - moderate scattered diverticulosis - 4-5 cm proximal ascending colon mass - likely large villous adenoma, r/o colon CA (multiple bx and tattoo) per Dr Faust 3. ETOH use, on thiamine and folate. 4. History of hypertension. Currently, blood pressure is low 5. Severe hypokalemia, was replaced by Dr. Mosley. Subjective Subjective Alert in NAD. S/P EGD and colonoscopy yesterday. Refusing CT abdomen till Wednesday Objective Last 24 Hour Vital Signs Date Time Temp Pulse Resp B/P (MAP) Pulse Ox O2 Delivery O2 Flow Rate FiO2 06/15/20 12:00 98.7 94 18 103/79 (87) 99 06/15/20 09:00 Room Air 06/15/20 08:00 67 06/15/20 07:42 97.7 81 17 109/93 (98) 100 06/15/20 04:00 97.2 77 20 95/63 (74) 100 06/15/20 04:00 72 06/15/20 00:00 97.9 68 16 101/68 (79) 94 06/15/20 00:00 68 06/14/20 21:00 Room Air 06/14/20 20:00 60 06/14/20 20:00 97.6 60 16 97/70 (79) 94 06/14/20 16:10 98.1 61 15 106/72 97 Nasal Cannula 3 06/14/20 15:55 63 17 102/65 97 Nasal Cannula 3 06/14/20 15:50 63 16 99/72 98 Nasal Cannula 3 06/14/20 15:49 68 18 99 06/14/20 15:46 98.7 68 15 106/76 98 Nasal Cannula 3 Intake and Output 06/14/20 06/15/20 19:00 07:00 Intake Total 600 ml Balance 600 ml IV Total 600 ml Laboratory Tests Test 06/15/20 07:36 White Blood Count 6.1 K/UL (4.8-10.8) Red Blood Count 2.79 M/UL (4.20-5.40) L Hemoglobin 8.9 G/DL (12.0-16.0) L Hematocrit 27.7 % (37.0-47.0) L Mean Corpuscular Volume 99 FL (80-99) Mean Corpuscular Hemoglobin 32.1 PG (27.0-31.0) H Mean Corpuscular Hemoglobin Concent 32.3 G/DL (32.0-36.0) Red Cell Distribution Width 16.8 % (11.6-14.8) H Platelet Count 226 K/UL (150-450) Mean Platelet Volume 7.0 FL (6.5-10.1) Neutrophils (%) (Auto) 60.4 % (45.0-75.0) Lymphocytes (%) (Auto) 29.1 % (20.0-45.0) Monocytes (%) (Auto) 9.1 % (1.0-10.0) Eosinophils (%) (Auto) 0.5 % (0.0-3.0) Basophils (%) (Auto) 0.9 % (0.0-2.0) Sodium Level 142 MMOL/L (136-145) Potassium Level 4.8 MMOL/L (3.5-5.1) Chloride Level 112 MMOL/L (98-107) H Carbon Dioxide Level 20 MMOL/L (21-32) L Anion Gap 10 mmol/L (5-15) Blood Urea Nitrogen 4 mg/dL (7-18) L Creatinine 0.5 MG/DL (0.55-1.30) L Estimat Glomerular Filtration Rate > 60 mL/min (>60) Glucose Level 62 MG/DL (74-106) L Calcium Level 8.4 MG/DL (8.5-10.1) L Phosphorus Level 2.7 MG/DL (2.5-4.9) Magnesium Level 1.7 MG/DL (1.8-2.4) L Total Bilirubin 0.6 MG/DL (0.2-1.0) Aspartate Amino Transf (AST/SGOT) 41 U/L (15-37) H Alanine Aminotransferase (ALT/SGPT) 27 U/L (12-78) Alkaline Phosphatase 162 U/L (46-116) H Total Protein 5.0 G/DL (6.4-8.2) L Albumin 2.0 G/DL (3.4-5.0) L Globulin 3.0 g/dL Albumin/Globulin Ratio 0.7 (1.0-2.7) L Carcinoembryonic Antigen Pending Microbiology Date/Time Source Procedure Growth Status 06/13/20 16:20 Nasopharynx SARS-CoV-2 Antigen (Rapid)([place]) - Final Complete Objective HEAD AND NECK: No JVD. LUNGS: Clear. CARDIOVASCULAR: Regular S1 and S2 with no gallop or murmur. ABDOMEN: Soft. EXTREMITIES: No pitting edema. Gil Garcia MD Jun 15, 2020 13:27
--- NOTE | 2020-06-15 14:07 | NUR ---
NURSE NOTES: new order entered by DR monreal for mg 1.7. will cont to monitor.
--- NOTE | 2020-06-15 14:25 | Nephrology Progress Note ---
Assessment/Plan Problem List: (1) Hypokalemia (2) Anemia (3) Electrolyte imbalance (4) Malnutrition Assessment Severe hypokalemia Severe anemia Malnutrition, hypoalbuminemia Low phosphorus low magnesium Plan June 15: Labs reviewed. Abnormal electrolytes and chemistries addressed. Continue per consultants. June 14: Renal parameters stable. Low potassium addressed. Continue per consultants. June 13. Renal parameters and electrolytes now all normalized. Continue per consultants. June 12: Labs reviewed. Electrolyte abnormalities , low phosphorus low ma gnesium addressed. Continue per consultants. Previously: Replacement of the potassium, magnesium, phosphorus per order Urine for analysis and urine for tox screen Replace folate and thiamine orally Continue to monitor electrolytes and renal parameters Per orders Subjective ROS Limited/Unobtainable: No Constitutional: Reports: malaise Objective Objective Last 24 Hour Vital Signs Date Time Temp Pulse Resp B/P (MAP) Pulse Ox O2 Delivery O2 Flow Rate FiO2 06/15/20 12:00 98.7 94 18 103/79 (87) 99 06/15/20 12:00 69 06/15/20 09:00 Room Air 06/15/20 08:00 67 06/15/20 07:42 97.7 81 17 109/93 (98) 100 06/15/20 04:00 97.2 77 20 95/63 (74) 100 06/15/20 04:00 72 06/15/20 00:00 97.9 68 16 101/68 (79) 94 06/15/20 00:00 68 06/14/20 21:00 Room Air 06/14/20 20:00 60 06/14/20 20:00 97.6 60 16 97/70 (79) 94 06/14/20 16:10 98.1 61 15 106/72 97 Nasal Cannula 3 06/14/20 15:55 63 17 102/65 97 Nasal Cannula 3 06/14/20 15:50 63 16 99/72 98 Nasal Cannula 3 06/14/20 15:49 68 18 99 06/14/20 15:46 98.7 68 15 106/76 98 Nasal Cannula 3 Intake and Output 06/14/20 06/15/20 19:00 07:00 Intake Total 600 ml Balance 600 ml IV Total 600 ml Current Medications Medications (Trade) Dose Ordered Sig/He Route PRN Reason Start Time Stop Time Status Last Admin Dose Admin Acetaminophen (Tylenol) 500 mg Q6H PRN ORAL Pain Scale (3-5) 06/11/20 11:30 07/11/20 11:29 06/11/20 12:56 Barium Sulfate (Readi-Cat 2) 450 ml NOW PRN ORAL Radiology Procedure 06/14/20 15:45 06/16/20 15:44 Folic Acid (Folate) 3 mg DAILY ORAL 06/11/20 16:00 07/11/20 15:59 06/15/20 08:26 Magnesium Sulfate 100 ml @ 100 mls/hr Q1H IVPB 06/15/20 13:00 06/15/20 14:59 Pantoprazole (Protonix) 40 mg EVERY 12 HOURS ORAL 06/14/20 09:00 07/14/20 08:59 06/15/20 08:26 Potassium Chloride (K-Dur) 40 meq TWICE A DAY ORAL 06/14/20 09:00 09/12/20 08:59 06/15/20 08:26 Thiamine HCl (Vitamin B1) 100 mg DAILY ORAL 06/11/20 16:00 07/11/20 15:59 06/15/20 08:26 Laboratory Tests 06/15/20 07:36: White Blood Count 6.1, Red Blood Count 2.79L, Hemoglobin 8.9L, Hematocrit 27.7L, Mean Corpuscular Volume 99, Mean Corpuscular Hemoglobin 32.1H, Mean Corpuscular Hemoglobin Concent 32.3, Red Cell Distribution Width 16.8H, Platelet Count 226, Mean Platelet Volume 7.0, Neutrophils (%) (Auto) 60.4, Lymphocytes (%) (Auto) 29.1, Monocytes (%) (Auto) 9.1, Eosinophils (%) (Auto) 0.5, Basophils (%) (Auto) 0.9, Sodium Level 142, Potassium Level 4.8, Chloride Level 112H, Carbon Dioxide Level 20L, Anion Gap 10, Blood Urea Nitrogen 4L, Creatinine 0.5L, Estimat Glomerular Filtration Rate > 60, Glucose Level 62L, Calcium Level 8.4L, Phosphorus Level 2.7, Magnesium Level 1.7L, Total Bilirubin 0.6, Aspartate Amino Transf (AST/SGOT) 41H, Alanine Aminotransferase (ALT/SGPT) 27, Alkaline Phosphatase 162H, Total Protein 5.0L, Albumin 2.0L, Globulin 3.0, Albumin/Globulin Ratio 0.7L, Carcinoembryonic Antigen [Pending] Height (Feet): 5 Height (Inches): 4.00 Weight (Pounds): 130 General Appearance: no apparent distress, lethargic Cardiovascular: tachycardia Respiratory/Chest: decreased breath sounds Abdomen: distended Objective No change Byron Mosley MD Jun 15, 2020 14:25
--- NOTE | 2020-06-15 15:32 | Diagnostic Imaging Report ---
EXAM: CT Abdomen and Pelvis Without Intravenous Contrast CLINICAL HISTORY: MASS TECHNIQUE: Axial computed tomography images of the abdomen and pelvis without intravenous contrast. CTDI is 3.5 mGy and DLP is 167.9 mGy-cm. One or more of the following dose reduction techniques were used: automated exposure control, adjustment of the mA and/or kV according to patient size, use of iterative reconstruction technique. COMPARISON: No relevant prior studies available. FINDINGS: Lung bases: Bibasilar consolidation. Pleural space: Trace left and small right pleural effusions. ABDOMEN: Liver: Fatty liver. Gallbladder and bile ducts: Gallbladder is not clearly identified. May be contracted. Pancreas: Possibly some fullness in the pancreatic head-uncinate region. Poorly assessed. Spleen: Calcifications in the spleen. Adrenals: Unremarkable. Kidneys and ureters: No renal calculi or obstructive changes. Stomach and bowel: GI tract is not completely or adequately opacify with enteric contrast. There is generalized thickening in the colon. More pronounced thickening in the cecal-descending colon. Possibly mass lesion in the area measuring approximately 3.8 cm. Colonic diverticula. Stomach is underdistended and not well assessed. PELVIS: Appendix: No findings to suggest acute appendicitis. Bladder: Unremarkable. Reproductive: Left pelvic mass lesion measuring approximately 4.7 cm with associated 17 mm calcific focus. ABDOMEN and PELVIS: Intraperitoneal space: Small-moderate amounts of fluid in the peritoneal cavity. Bones/joints: Old transverse process fracture. Soft tissues: Anasarca. Fat-containing ventral hernia. Vasculature: Unremarkable. No abdominal aortic aneurysm. Lymph nodes: No enlarged lymph nodes. IMPRESSION: 1. GI tract is not completely or adequately opacify with enteric contrast. There is generalized thickening in the colon. More pronounced thickening in the cecal-descending colon. Possibly mass lesion in the area measuring approximately 3.8 cm. Further evaluation needed. 2. Left pelvic mass lesion measuring approximately 4.7 cm with associated 17 mm calcific focus. May be a left adnexal mass or exophytic fibroid.
[2020-06-15 16:00] VITALS: BP 108/78
--- NOTE | 2020-06-15 19:15 | NUR ---
NURSE HAND-OFF REPORT: Important Events on Shift:[resumed diet] Patient Status: [stable] Diet: [reg] Pending Orders: [labs] Pending Results/Labs:[in am] Pending MD notification:[] Latest Vital Signs: Temperature 96.7 , Pulse 63 , B/P 108 /78 , Respiratory Rate 18 , O2 SAT 96 , Nasal Cannula, O2 Flow Rate 3 . Vital Sign Comment: [] EKG Rhythm: Sinus Rhythm Rhythm change?: N MD Notified?: Micaela Garcia MD Response: Latest Ortiz Fall Score: 30 Fall Risk: Medium Risk Safety Measures: Call light Within Reach, Bed Alarm Zone 1, Side Rails Side Rails x2, Bed position Low and Locked. Fall Precautions: Patient Fall Education Report given to [craig].
--- NOTE | 2020-06-15 19:30 | NUR ---
NURSE NOTES: Received pt and report from MAK Méndez. Observed pt resting in bed with both eyes closed; arousable to voice. Pt is A/Ox4. track coach is in placed; pt is NSR (65 bpm). IV site intact, asymptomatic, and patent; saline locked. Bed is in the lowest position and locked. Call light and bedside table is within reach. No signs/symptoms of acute distress noted. Will continue plan of care.
[2020-06-15 20:00] VITALS: BP 111/64
--- NOTE | 2020-06-15 21:09 | General Progress Note ---
Subjective ROS Limited/Unobtainable: Yes Allergies: Coded Allergies: No Known Allergies (Unverified , 06/10/20) Objective Last 24 Hour Vital Signs Date Time Temp Pulse Resp B/P (MAP) Pulse Ox O2 Delivery O2 Flow Rate FiO2 06/15/20 20:00 66 06/15/20 20:00 97.1 63 17 111/64 (80) 96 06/15/20 16:00 63 06/15/20 16:00 96.7 75 18 108/78 (88) 96 06/15/20 12:00 98.7 94 18 103/79 (87) 99 06/15/20 12:00 69 06/15/20 09:00 Room Air 06/15/20 08:00 67 06/15/20 07:42 97.7 81 17 109/93 (98) 100 06/15/20 04:00 97.2 77 20 95/63 (74) 100 06/15/20 04:00 72 06/15/20 00:00 97.9 68 16 101/68 (79) 94 06/15/20 00:00 68 Intake and Output 06/14/20 06/15/20 19:00 07:00 Intake Total 600 ml Balance 600 ml IV Total 600 ml Laboratory Tests 06/15/20 07:36: White Blood Count 6.1, Red Blood Count 2.79L, Hemoglobin 8.9L, Hematocrit 27.7L, Mean Corpuscular Volume 99, Mean Corpuscular Hemoglobin 32.1H, Mean Corpuscular Hemoglobin Concent 32.3, Red Cell Distribution Width 16.8H, Platelet Count 226, Mean Platelet Volume 7.0, Neutrophils (%) (Auto) 60.4, Lymphocytes (%) (Auto) 2 9.1, Monocytes (%) (Auto) 9.1, Eosinophils (%) (Auto) 0.5, Basophils (%) (Auto) 0.9, Sodium Level 142, Potassium Level 4.8, Chloride Level 112H, Carbon Dioxide Level 20L, Anion Gap 10, Blood Urea Nitrogen 4L, Creatinine 0.5L, Estimat Glomerular Filtration Rate > 60, Glucose Level 62L, Calcium Level 8.4L, Phosphorus Level 2.7, Magnesium Level 1.7L, Total Bilirubin 0.6, Aspartate Amino Transf (AST/SGOT) 41H, Alanine Aminotransferase (ALT/SGPT) 27, Alkaline Ph osphatase 162H, Total Protein 5.0L, Albumin 2.0L, Globulin 3.0, Albumin/Globulin Ratio 0.7L, Carcinoembryonic Antigen [Pending] Height (Feet): 5 Height (Inches): 4.00 Weight (Pounds): 130 Assessment/Plan Problem List: (1) Anemia ICD Codes: D64.9 - Anemia, unspecified SNOMED: 256778525 (2) Electrolyte imbalance ICD Codes: E87.8 - Other disorders of electrolyte and fluid balance, not el sewhere classified SNOMED: 983537121 (3) Malnutrition ICD Codes: E46 - Unspecified protein-calorie malnutrition SNOMED: 79331971 Status: progressing Assessment/Plan: anemia check h/h weak no n/v/d dc planning Tesha Kerr MD Jun 15, 2020 21:09
[2020-06-16] VITALS: BP 104/70
--- NOTE | 2020-06-16 02:21 | NUR ---
NURSE NOTES: Observed pt asleep in bed. No acute distress noted. Will continue plan of care.
[2020-06-16 04:00] VITALS: BP 109/78
--- NOTE | 2020-06-16 07:20 | NUR ---
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 Patient Status: Stable Diet: Regular Pending Orders: N Pending Results/Labs: AM Labs Pending MD notification: N Latest Vital Signs: Temperature 97.5 , Pulse 73 , B/P 109 /78 , Respiratory Rate 17 , O2 SAT 96 , Nasal Cannula, O2 Flow Rate 3 . EKG Rhythm: Sinus Rhythm Rhythm change?: N Latest Ortiz Fall Score: 30 Fall Risk: Medium Risk Safety Measures: Call light Within Reach, Bed Alarm Zone 1, Side Rails Side Rails x2, Bed position Low and Locked. Fall Precautions: Patient Fall Education Report given to MAK Méndez.
--- NOTE | 2020-06-16 07:42 | NUR ---
NURSE NOTES: Received report from MAK Bañuelos. Patient is A/A/Ox4. Able to verbalize needs. refusing to eat breakfast. shows no signs of distress or pain at the time. On room air and shows no signs of cardio-respiratory distress. PIV is intact and patent. no signs of erythema, infiltration, or bleeding. Bed is in the lowest position, call light is within reach, siderails up x3. Will continue to monitor.
[2020-06-16 07:44] VITALS: BP 103/68
[2020-06-16] MEDS ORDERED: NS 275ml ONE (07:48)
[2020-06-16] MEDS ORDERED: Tubing IV Secondary IV ONE (07:48)
[2020-06-16] MEDS: Thiamine 100mg tab ORAL SCH (08:44)
[2020-06-16 09:11] LABS: BASOPHILS % (AUTO) 0.8 % (0.0-2.0); HEMATOCRIT 27.2 % (37.0-47.0); HEMOGLOBIN 8.6 G/DL (12.0-16.0); LYMPHOCYTES % (AUTO) 28.4 % (20.0-45.0); MEAN CORPUSCULAR VOLUME 99 FL (80-99); MONOCYTES % (AUTO) 11.1 % (1.0-10.0); NEUTROPHILS % (AUTO) 58.7 % (45.0-75.0); PLATELET COUNT 238 K/UL (150-450); RED BLOOD COUNT 2.76 M/UL (4.20-5.40); RED CELL DISTRIBUTION WIDTH 16.7 % (11.6-14.8); WHITE BLOOD COUNT 5.4 K/UL (4.8-10.8)
[2020-06-16 09:20] LABS: ANION GAP 10 mmol/L (5-15); BLOOD UREA NITROGEN 3 mg/dL (7-18); CALCIUM 8.6 MG/DL (8.5-10.1); CARBON DIOXIDE 20 MMOL/L (21-32); CHLORIDE 108 MMOL/L (98-107); CREATININE 0.5 MG/DL (0.55-1.30); SODIUM 138 MMOL/L (136-145)
--- NOTE | 2020-06-16 09:30 | General Progress Note ---
Subjective ROS Limited/Unobtainable: Yes Allergies: Coded Allergies: No Known Allergies (Unverified , 06/10/20) Subjective wants to go home Objective Last 24 Hour Vital Signs Date Time Temp Pulse Resp B/P (MAP) Pulse Ox O2 Delivery O2 Flow Rate FiO2 06/16/20 08:00 71 06/16/20 07:44 98.1 80 19 103/68 (80) 96 06/16/20 04:00 73 06/16/20 04:00 97.5 60 17 109/78 (88) 96 06/16/20 00:00 71 06/16/20 00:00 97.4 65 16 104/70 (81) 95 06/15/20 21:00 Room Air 06/15/20 20:00 66 06/15/20 20:00 97.1 63 17 111/64 (80) 96 06/15/20 16:00 63 06/15/20 16:00 96.7 75 18 108/78 (88) 96 06/15/20 12:00 98.7 94 18 103/79 (87) 99 06/15/20 12:00 69 Intake and Output 06/15/20 06/16/20 19:00 07:00 Intake Total 560 ml 240 ml Balance 560 ml 240 ml Intake Oral 360 ml 240 ml IV Total 200 ml # Voids 3 3 # Bowel Movements 1 Laboratory Tests 06/16/20 08:45: White Blood Count 5.4, Red Blood Count 2.76L, Hemoglobin 8.6L, Hematocrit 27.2L, Mean Corpuscular Volume 99, Mean Corpuscular Hemoglobin 31.3H, Mean Corpuscular Hemoglobin Concent 31.7L, Red Cell Distribution Width 16.7H, Platelet Count 238, Mean Platelet Volume 6.6, Neutrophils (%) (Auto) 58.7, Lymphocytes (%) (Auto) 28.4, Monocytes (%) (Auto) 11.1H, Eosinophils (%) (Auto) 1.0, Basophils (%) (Auto) 0.8, Sodium Level [Pending], Potassium Level [Pending], Chloride Level [Pending], Carbon Dioxide Level [Pending], Blood Urea Nitrogen [Pending], Creatinine [Pending], Estimat Glomerular Filtration Rate [Pending], Glucose Level [Pending], Calcium Level [Pending] Height (Feet): 5 Height (Inches): 4.00 Weight (Pounds): 130 General Appearance: no apparent distress EENT: PERRL/EOMI Neck: supple Cardiovascular: normal rate Respiratory/Chest: decreased breath sounds Abdomen: normal bowel sounds, non tender, soft Extremities: non-tender Assessment/Plan Status: progressing Assessment/Plan: anemia s/p EGD and colonoscopy POST PROCEDURE ADDENDUM EGD: - 4-5 cm hiatal hernia - mild peptic stricture - mild erosive duodenitis Colon: - moderate scattered diverticulosis - 4-5 cm proximal ascending colon mass - likely large villous adenoma, r/o co l[place] CA (multiple bx and tattoo) Rec - f/u path - check CEA - PPI - CT reviewed Claudio Faust MD Jun 16, 2020 09:30
--- NOTE | 2020-06-16 09:42 | Hematology/Onc Progress Note ---
Assessment/Plan Assessment/Plan Assessment and recs # Anemia r/o gi bleed --> hgb 7.4-->8.7--> 8.6 -> transfuse prn basis --> anemia panel has been reviewed, Ferritin 987 --> no hemolysis is noted --> 2 units prbc in 06/10 --> egd/colo done EGD:- 4-5 cm hiatal hernia- mild peptic stricture- mild erosive duodenitis Colon:- moderate scattered diverticulosis- 4-5 cm proximal ascending colon mass - likely large villous adenoma, r/o colon CA (multiple bx and tattoo) follow up with pathology # Hypokalemia --> k has been repleted --> as per renal care # Generalized weakness. --> is likely due to above -> pt as needed and ot # Dvt ppx scds Appreciate consultation and dw R Subjective Allergies: Coded Allergies: No Known Allergies (Unverified , 06/10/20) Subjective 06/15: VS reviewed BP low, no bleeding noted. 06/16: pt states he wants to go home. hbg 8.6 Objective Objective Current Medications Medications (Trade) Dose Ordered Sig/He Route PRN Reason Start Time Stop Time Status Last Admin Dose Admin Acetaminophen (Tylenol) 500 mg Q6H PRN ORAL Pain Scale (3-5) 06/11/20 11:30 07/11/20 11:29 06/11/20 12:56 Barium Sulfate (Readi-Cat 2) 450 ml NOW PRN ORAL Radiology Procedure 06/14/20 15:45 06/16/20 15:44 Folic Acid (Folate) 3 mg DAILY ORAL 06/11/20 16:00 07/11/20 15:59 06/16/20 08:44 Pantoprazole (Protonix) 40 mg EVERY 12 HOURS ORAL 06/14/20 09:00 07/14/20 08:59 06/16/20 08:44 Potassium Chloride (K-Dur) 40 meq TWICE A DAY ORAL 06/14/20 09:00 09/12/20 08:59 06/16/20 08:44 Thiamine HCl (Vitamin B1) 100 mg DAILY ORAL 06/11/20 16:00 07/11/20 15:59 06/16/20 08:44 Last 24 Hour Vital Signs Date Time Temp Pulse Resp B/P (MAP) Pulse Ox O2 Delivery O2 Flow Rate FiO2 06/16/20 08:00 71 06/16/20 07:44 98.1 80 19 103/68 (80) 96 06/16/20 04:00 73 06/16/20 04:00 97.5 60 17 109/78 (88) 96 06/16/20 00:00 71 06/16/20 00:00 97.4 65 16 104/70 (81) 95 06/15/20 21:00 Room Air 06/15/20 20:00 66 06/15/20 20:00 97.1 63 17 111/64 (80) 96 06/15/20 16:00 63 06/15/20 16:00 96.7 75 18 108/78 (88) 96 06/15/20 12:00 98.7 94 18 103/79 (87) 99 06/15/20 12:00 69 06/15/20 09:00 Room Air 06/15/20 08:00 67 06/15/20 07:42 97.7 81 17 109/93 (98) 100 06/15/20 04:00 97.2 77 20 95/63 (74) 100 06/15/20 04:00 72 06/15/20 00:00 97.9 68 16 101/68 (79) 94 06/15/20 00:00 68 06/14/20 21:00 Room Air 06/14/20 20:00 60 06/14/20 20:00 97.6 60 16 97/70 (79) 94 06/14/20 16:10 98.1 61 15 106/72 97 Nasal Cannula 3 06/14/20 15:55 63 17 102/65 97 Nasal Cannula 3 06/14/20 15:50 63 16 99/72 98 Nasal Cannula 3 06/14/20 15:49 68 18 99 06/14/20 15:46 98.7 68 15 106/76 98 Nasal Cannula 3 06/14/20 12:00 96.8 76 22 106/76 (86) 97 06/14/20 12:00 65 Intake and Output 06/15/20 06/16/20 19:00 07:00 Intake Total 560 ml 240 ml Balance 560 ml 240 ml Intake Oral 360 ml 240 ml IV Total 200 ml # Voids 3 3 # Bowel Movements 1 Labs Test 06/13/20 18:50 06/14/20 03:21 06/15/20 07:36 06/16/20 08:45 Troponin I 0.014 ng/mL (0.000-0.056) 0.015 ng/mL (0.000-0.056) White Blood Count 6.1 K/UL (4.8-10.8) 6.1 K/UL (4.8-10.8) 5.4 K/UL (4.8-10.8) Red Blood Count 2.71 M/UL (4.20-5.40) 2.79 M/UL (4.20-5.40) 2.76 M/UL (4.20-5.40) Hemoglobin 8.7 G/DL (12.0-16.0) 8.9 G/DL (12.0-16.0) 8.6 G/DL (12.0-16.0) Hematocrit 26.4 % (37.0-47.0) 27.7 % (37.0-47.0) 27.2 % (37.0-47.0) Mean Corpuscular Volume 97 FL (80-99) 99 FL (80-99) 99 FL (80-99) Mean Corpuscular Hemoglobin 32.2 PG (27.0-31.0) 32.1 PG (27.0-31.0) 31.3 PG (27.0-31.0) Mean Corpuscular Hemoglobin Concent 33.0 G/DL (32.0-36.0) 32.3 G/DL (32.0-36.0) 31.7 G/DL (32.0-36.0) Red Cell Distribution Width 17.1 % (11.6-14.8) 16.8 % (11.6-14.8) 16.7 % (11.6-14.8) Platelet Count 227 K/UL (150-450) 226 K/UL (150-450) 238 K/UL (150-450) Mean Platelet Volume 7.1 FL (6.5-10.1) 7.0 FL (6.5-10.1) 6.6 FL (6.5-10.1) Neutrophils (%) (Auto) 60.2 % (45.0-75.0) 60.4 % (45.0-75.0) 58.7 % (45.0-75.0) Lymphocytes (%) (Auto) 29.4 % (20.0-45.0) 29.1 % (20.0-45.0) 28.4 % (20.0-45.0) Monocytes (%) (Auto) 7.9 % (1.0-10.0) 9.1 % (1.0-10.0) 11.1 % (1.0-10.0) Eosinophils (%) (Auto) 2.1 % (0.0-3.0) 0.5 % (0.0-3.0) 1.0 % (0.0-3.0) Basophils (%) (Auto) 0.3 % (0.0-2.0) 0.9 % (0.0-2.0) 0.8 % (0.0-2.0) Sodium Level 139 MMOL/L (136-145) 142 MMOL/L (136-145) 138 MMOL/L (136-145) Potassium Level 3.3 MMOL/L (3.5-5.1) 4.8 MMOL/L (3.5-5.1) 5.0 MMOL/L (3.5-5.1) Chloride Level 106 MMOL/L (98-107) 112 MMOL/L (98-107) 108 MMOL/L (98-107) Carbon Dioxide Level 23 MMOL/L (21-32) 20 MMOL/L (21-32) 20 MMOL/L (21-32) Anion Gap 10 mmol/L (5-15) 10 mmol/L (5-15) 10 mmol/L (5-15) Blood Urea Nitrogen 4 mg/dL (7-18) 4 mg/dL (7-18) 3 mg/dL (7-18) Creatinine 0.5 MG/DL (0.55-1.30) 0.5 MG/DL (0.55-1.30) 0.5 MG/DL (0.55-1.30) Estimat Glomerular Filtration Rate > 60 mL/min (>60) > 60 mL/min (>60) > 60 mL/min (>60) Glucose Level 74 MG/DL (74-106) 62 MG/DL (74-106) 72 MG/DL (74-106) Calcium Level 8.3 MG/DL (8.5-10.1) 8.4 MG/DL (8.5-10.1) 8.6 MG/DL (8.5-10.1) Pro-B-Type Natriuretic Peptide 454 pg/mL (0-125) Phosphorus Level 2.7 MG/DL (2.5-4.9) Magnesium Level 1.7 MG/DL (1.8-2.4) Total Bilirubin 0.6 MG/DL (0.2-1.0) Aspartate Amino Transf (AST/SGOT) 41 U/L (15-37) Alanine Aminotransferase (ALT/SGPT) 27 U/L (12-78) Alkaline Phosphatase 162 U/L (46-116) Total Protein 5.0 G/DL (6.4-8.2) Albumin 2.0 G/DL (3.4-5.0) Globulin 3.0 g/dL Albumin/Globulin Ratio 0.7 (1.0-2.7) Height (Feet): 5 Height (Inches): 4.00 Weight (Pounds): 130 Objective General: Awake and alert, nad HEENT: NC/AT. EOMI. Cardiovascular: RRR. S1 and S2 normal. No murmur appreciated Resp: Normal work of breathing. No cough, wheezing or crackles appreciated Abdomen: Abdomen is soft, nondistended. Nontender. Skin: Intact. No abrasions, laceration or rash over the exposed skin MSK: Normal tone and bulk. Moving all extremities. No obvious deformity. Neuro: Awake and alert. Mentating appropriately. Marianna Nunes NP Jun 16, 2020 09:42
--- NOTE | 2020-06-16 10:22 | NUR ---
CASE MANAGEMENT:REVIEW 06/16/20 SI: ANEMIA. MALNUTRITION. ELECTROLYTE IMBALANCE. MILD EROSIVE DUODENITIS 98.1 80 19 103/68 96% ON RA H/H-8.6/27.2 GLUCOSE-72 IS:PROTONIX PO Q12 K-DUR PO BID THIAMINE PO QD FOLATE PO QD : TELEMETRY STATUS DCP: FROM HOME
[2020-06-16 12:06] VITALS: BP 98/65
--- NOTE | 2020-06-16 15:49 | General Progress Note ---
Subjective ROS Limited/Unobtainable: Yes Allergies: Coded Allergies: No Known Allergies (Unverified , 06/10/20) Objective Last 24 Hour Vital Signs Date Time Temp Pulse Resp B/P (MAP) Pulse Ox O2 Delivery O2 Flow Rate FiO2 06/16/20 12:06 96.7 93 20 98/65 (76) 97 06/16/20 12:00 83 06/16/20 09:00 Room Air 06/16/20 08:00 71 06/16/20 07:44 98.1 80 19 103/68 (80) 96 06/16/20 04:00 73 06/16/20 04:00 97.5 60 17 109/78 (88) 96 06/16/20 00:00 71 06/16/20 00:00 97.4 65 16 104/70 (81) 95 06/15/20 21:00 Room Air 06/15/20 20:00 66 06/15/20 20:00 97.1 63 17 111/64 (80) 96 06/15/20 16:00 63 06/15/20 16:00 96.7 75 18 108/78 (88) 96 Intake and Output 06/15/20 06/16/20 19:00 07:00 Intake Total 560 ml 240 ml Balance 560 ml 240 ml Intake Oral 360 ml 240 ml IV Total 200 ml # Voids 3 3 # Bowel Movements 1 Laboratory Tests 06/16/20 08:45: White Blood Count 5.4, Red Blood Count 2.76L, Hemoglobin 8.6L, Hematocrit 27.2L, Mean Corpuscular Volume 99, Mean Corpuscular Hemoglobin 31.3H, Mean Corpuscular Hemoglobin Concent 31.7L, Red Cell Distribution Width 16.7H, Platelet Count 238, Mean Platelet Volume 6.6, Neutrophils (%) (Auto) 58.7, Lymphocytes (%) (Auto) 2 8.4, Monocytes (%) (Auto) 11.1H, Eosinophils (%) (Auto) 1.0, Basophils (%) (Auto) 0.8, Sodium Level 138, Potassium Level 5.0, Chloride Level 108H, Carbon Dioxide Level 20L, Anion Gap 10, Blood Urea Nitrogen 3L, Creatinine 0.5L, Estimat Glomerular Filtration Rate > 60, Glucose Level 72L, Calcium Level 8.6 Height (Feet): 5 Height (Inches): 4.00 Weight (Pounds): 130 Assessment/Plan Problem List: (1) Anemia ICD Codes: D64.9 - Anemia, unspecified SNOMED: 526814719 (2) Electrolyte imbalance ICD Codes: E87.8 - Other disorders of electrolyte and fluid balance, not elsewhere classified SNOMED: 654368569 (3) Malnutrition ICD Codes: E46 - Unspecified protein-calorie malnutrition SNOMED: 77410602 Status: progressing Assessment/Plan: weak check h/h no bleeding anemic Tesha Kerr MD Jun 16, 2020 15:49
[2020-06-16 16:00] VITALS: BP 104/70
--- NOTE | 2020-06-16 16:33 | Nephrology Progress Note ---
Assessment/Plan Problem List: (1) Hypokalemia (2) Anemia (3) Electrolyte imbalance (4) Malnutrition Assessment Severe hypokalemia Severe anemia Malnutrition, hypoalbuminemia Low phosphorus low magnesium Plan June 16: Labs reviewed. Abnormal electrolytes addressed. Continue per consultants. June 15: Labs reviewed. Abnormal electrolytes and chemistries addressed. Continue per consultants. June 14: Renal parameters stable. Low potassium addressed. Continue per consultants. June 13. Renal parameters and electrolytes now all normalized. Continue per co nsultants. June 12: Labs reviewed. Electrolyte abnormalities , low phosphorus low magnesium addressed. Continue per consultants. Previously: Replacement of the potassium, magnesium, phosphorus per order Urine for analysis and urine for tox screen Replace folate and thiamine orally Continue to monitor electrolytes and renal parameters Per orders Subjective ROS Limited/Unobtainable: No Constitutional: Reports: malaise, weakness Objective Objective Last 24 Hour Vital Signs Date Time Temp Pulse Resp B/P (MAP) Pulse Ox O2 Delivery O2 Flow Rate FiO2 06/16/20 16:00 98.8 81 18 104/70 (81) 96 06/16/20 12:06 96.7 93 20 98/65 (76) 97 06/16/20 12:00 83 06/16/20 09:00 Room Air 06/16/20 08:00 71 06/16/20 07:44 98.1 80 19 103/68 (80) 96 06/16/20 04:00 73 06/16/20 04:00 97.5 60 17 109/78 (88) 96 06/16/20 00:00 71 06/16/20 00:00 97.4 65 16 104/70 (81) 95 06/15/20 21:00 Room Air 06/15/20 20:00 66 06/15/20 20:00 97.1 63 17 111/64 (80) 96 Intake and Output 06/15/20 06/16/20 19:00 07:00 Intake Total 560 ml 240 ml Balance 560 ml 240 ml Intake Oral 360 ml 240 ml IV Total 200 ml # Voids 3 3 # Bowel Movements 1 Current Medications Medications (Trade) Dose Ordered Sig/He Route PRN Reason Start Time Stop Time Status Last Admin Dose Admin Acetaminophen (Tylenol) 500 mg Q6H PRN ORAL Pain Scale (3-5) 06/11/20 11:30 07/11/20 11:29 06/11/20 12:56 Folic Acid (Folate) 3 mg DAILY ORAL 06/11/20 16:00 07/11/20 15:59 06/16/20 08:44 Pantoprazole (Protonix) 40 mg EVERY 12 HOURS ORAL 06/14/20 09:00 07/14/20 08:59 06/16/20 08:44 Potassium Chloride (K-Dur) 40 meq TWICE A DAY ORAL 06/14/20 09:00 09/12/20 08:59 06/16/20 08:44 Thiamine HCl (Vitamin B1) 100 mg DAILY ORAL 06/11/20 16:00 07/11/20 15:59 06/16/20 08:44 Laboratory Tests 06/16/20 08:45: White Blood Count 5.4, Red Blood Count 2.76L, Hemoglobin 8.6L, Hematocrit 27.2L, Mean Corpuscular Volume 99, Mean Corpuscular Hemoglobin 31.3H, Mean Corpuscular Hemoglobin Concent 31.7L, Red Cell Distribution Width 16.7H, Platelet Count 238, Mean Platelet Volume 6.6, Neutrophils (%) (Auto) 58.7, Lymphocytes (%) (Auto) 28.4, Monocytes (%) (Auto) 11.1H, Eosinophils (%) (Auto) 1.0, Basophils (%) (Auto) 0.8, Sodium Level 138, Potassium Level 5.0, Chloride Level 108H, Carbon Dioxide Level 20L, Anion Gap 10, Blood Urea Nitrogen 3L, Creatinine 0.5L, Estimat Glomerular Filtration Rate > 60, Glucose Level 72L, Calcium Level 8.6 Height (Feet): 5 Height (Inches): 4.00 Weight (Pounds): 130 General Appearance: no apparent distress Objective No change Byron Mosley MD Jun 16, 2020 16:33
--- NOTE | 2020-06-16 19:26 | NUR ---
NURSE HAND-OFF REPORT: Important Events on Shift:[UNEVENTFUL THROUGHOUT THE SHIFT] Patient Status: [FC] Diet: [REG] Pending Orders: [] Pending Results/Labs:[] Pending MD notification:[] Latest Vital Signs: Temperature 98.8 , Pulse 83 , B/P 104 /70 , Respiratory Rate 18 , O2 SAT 96 , Nasal Cannula, O2 Flow Rate 3 . Vital Sign Comment: [] EKG Rhythm: Sinus Rhythm Rhythm change?: N MD Notified?: Micaela Garcia MD Response: Latest Ortiz Fall Score: 30 Fall Risk: Medium Risk Safety Measures: Call light Within Reach, Bed Alarm Zone 1, Side Rails Side Rails x2, Bed position Low and Locked. Fall Precautions: Patient Fall Education Report given to [ANASTASIA].
--- NOTE | 2020-06-16 19:27 | NUR ---
NURSE NOTES: Important Events on Shift: Received report from Honey Hanson LVN. Pt is awake, alert, and oriented x 4. Pt denies pain, no signs or symptoms of distress noted at this time. Will continue to monitor closely. Will continue plan of care. Patient Status: Diet: regular Pending Orders: none Pending Results/Labs:none Pending MD notification: none Latest Vital Signs: Temperature 96.8 , Pulse 76 , B/P 96 /60 , Respiratory Rate 18 , O2 SAT 94 , Nasal Cannula, O2 Flow Rate 3 . Vital Sign Comment: per report, stable throughout shift. EKG Rhythm: Sinus Rhythm Rhythm change?: N MD Notified?: - MD Response: Latest Ortiz Fall Score: 30 Fall Risk: Medium Risk Safety Measures: Call light Within Reach, Bed Alarm Zone 1, Side Rails Side Rails x2, Bed position Low and Locked. Fall Precautions: Patient Fall Education
[2020-06-16 20:00] VITALS: BP 92/67
[2020-06-17] VITALS: BP 100/70
[2020-06-17 04:00] VITALS: BP 96/60
--- NOTE | 2020-06-17 06:05 | Hematology/Onc Progress Note ---
Assessment/Plan Assessment/Plan Assessment and recs # Anemia r/o gi bleed --> hgb 7.4-->8.7--> 8.6 -> transfuse prn basis --> anemia panel has been reviewed, Ferritin 987 --> no hemolysis is noted --> 2 units prbc in 06/10 --> egd/colo done EGD:- 4-5 cm hiatal hernia- mild peptic stricture- mild erosive duodenitis Colon:- moderate scattered diverticulosis- 4-5 cm proximal ascending colon mass - likely large villous adenoma, r/o colon CA (multiple bx and tattoo) follow up with pathology # Hypokalemia --> k has been repleted --> as per renal care # Generalized weakness. --> is likely due to above -> pt as needed and ot # Dvt ppx scds Appreciate consultation and dw R Subjective HEENT: Denies: no symptoms, eye pain, blurred vision, tearing, double vision, ear pain, ear discharge, nose pain, nose congestion, throat pain, throat swelling, mouth pain, mouth swelling, other Cardiovascular: Denies: no symptoms, chest pain, edema, irregular heart rate, lightheadedness, palpitations, syncope, other Respiratory: Denies: no symptoms, cough, shortness of breath, SOB with excertion, SOB at rest, sputum, wheezing, other Gastrointestinal/Abdominal: Denies: no symptoms, abdomen distended, abdominal pain, black stools, tarry stools, blood in stool, constipated, diarrhea, difficulty swallowing, nausea, poor appetite, poor fluid intake, rectal bleeding, vomiting, other Genitourinary: Denies: no symptoms, burning, discharge, frequency, flank pain, hematuria, incontinence, pain, urgency, other Endocrine: Denies: no symptoms, excessive sweating, flushing, intolerance to cold, intolerance to heat, increased hunger, increased thirst, increased urine, unexplained weight gain, unexplained weight loss, other Allergies: Coded Allergies: No Known Allergies (Unverified , 06/10/20) All Systems: reviewed and negative except above Subjective 06/12 meds noted, no bleeding, ferritin 987, hgb better 3 agreed to egd/colo as per gi, meds noted, no bleeding 06/14 awake, alert, no bleeding, labs noted, meds reviewed 06/15: VS reviewed BP low, no bleeding noted. 06/16: pt states he wants to go home. hbg 8.6 06/17 is on nc 3l, labs noted, electrolytes repleted, cbc ordered Objective Objective Current Medications Medications (Trade) Dose Ordered Sig/He Route PRN Reason Start Time Stop Time Status Last Admin Dose Admin Acetaminophen (Tylenol) 500 mg Q6H PRN ORAL Pain Scale (3-5) 06/11/20 11:30 07/11/20 11:29 06/11/20 12:56 Folic Acid (Folate) 3 mg DAILY ORAL 06/11/20 16:00 07/11/20 15:59 06/16/20 08:44 Pantoprazole (Protonix) 40 mg EVERY 12 HOURS ORAL 06/14/20 09:00 07/14/20 08:59 06/16/20 21:34 Thiamine HCl (Vitamin B1) 100 mg DAILY ORAL 06/11/20 16:00 07/11/20 15:59 06/16/20 08:44 Last 24 Hour Vital Signs Date Time Temp Pulse Resp B/P (MAP) Pulse Ox O2 Delivery O2 Flow Rate FiO2 06/17/20 04:00 76 06/17/20 04:00 96.8 76 18 96/60 (72) 94 06/17/20 00:00 96.3 75 18 100/70 (80) 95 06/17/20 00:00 78 06/16/20 21:00 Room Air 06/16/20 20:00 97.7 71 17 92/67 (75) 95 06/16/20 20:00 71 06/16/20 16:00 83 06/16/20 16:00 98.8 81 18 104/70 (81) 96 06/16/20 12:06 96.7 93 20 98/65 (76) 97 06/16/20 12:00 83 06/16/20 09:00 Room Air 06/16/20 08:00 71 06/16/20 07:44 98.1 80 19 103/68 (80) 96 06/16/20 04:00 73 06/16/20 04:00 97.5 60 17 109/78 (88) 96 06/16/20 00:00 71 06/16/20 00:00 97.4 65 16 104/70 (81) 95 06/15/20 21:00 Room Air 06/15/20 20:00 66 06/15/20 20:00 97.1 63 17 111/64 (80) 96 06/15/20 16:00 63 06/15/20 16:00 96.7 75 18 108/78 (88) 96 06/15/20 12:00 98.7 94 18 103/79 (87) 99 06/15/20 12:00 69 06/15/20 09:00 Room Air 06/15/20 08:00 67 06/15/20 07:42 97.7 81 17 109/93 (98) 100 Intake and Output 06/16/20 06/17/20 19:00 07:00 Intake Total 360 ml 260 ml Balance 360 ml 260 ml Intake Oral 360 ml 260 ml # Voids 3 2 Labs Test 06/15/20 07:36 06/16/20 08:45 White Blood Count 6.1 K/UL (4.8-10.8) 5.4 K/UL (4.8-10.8) Red Blood Count 2.79 M/UL (4.20-5.40) 2.76 M/UL (4.20-5.40) Hemoglobin 8.9 G/DL (12.0-16.0) 8.6 G/DL (12.0-16.0) Hematocrit 27.7 % (37.0-47.0) 27.2 % (37.0-47.0) Mean Corpuscular Volume 99 FL (80-99) 99 FL (80-99) Mean Corpuscular Hemoglobin 32.1 PG (27.0-31.0) 31.3 PG (27.0-31.0) Mean Corpuscular Hemoglobin Concent 32.3 G/DL (32.0-36.0) 31.7 G/DL (32.0-36.0) Red Cell Distribution Width 16.8 % (11.6-14.8) 16.7 % (11.6-14.8) Platelet Count 226 K/UL (150-450) 238 K/UL (150-450) Mean Platelet Volume 7.0 FL (6.5-10.1) 6.6 FL (6.5-10.1) Neutrophils (%) (Auto) 60.4 % (45.0-75.0) 58.7 % (45.0-75.0) Lymphocytes (%) (Auto) 29.1 % (20.0-45.0) 28.4 % (20.0-45.0) Monocytes (%) (Auto) 9.1 % (1.0-10.0) 11.1 % (1.0-10.0) Eosinophils (%) (Auto) 0.5 % (0.0-3.0) 1.0 % (0.0-3.0) Basophils (%) (Auto) 0.9 % (0.0-2.0) 0.8 % (0.0-2.0) Sodium Level 142 MMOL/L (136-145) 138 MMOL/L (136-145) Potassium Level 4.8 MMOL/L (3.5-5.1) 5.0 MMOL/L (3.5-5.1) Chloride Level 112 MMOL/L (98-107) 108 MMOL/L (98-107) Carbon Dioxide Level 20 MMOL/L (21-32) 20 MMOL/L (21-32) Anion Gap 10 mmol/L (5-15) 10 mmol/L (5-15) Blood Urea Nitrogen 4 mg/dL (7-18) 3 mg/dL (7-18) Creatinine 0.5 MG/DL (0.55-1.30) 0.5 MG/DL (0.55-1.30) Estimat Glomerular Filtration Rate > 60 mL/min (>60) > 60 mL/min (>60) Glucose Level 62 MG/DL (74-106) 72 MG/DL (74-106) Calcium Level 8.4 MG/DL (8.5-10.1) 8.6 MG/DL (8.5-10.1) Phosphorus Level 2.7 MG/DL (2.5-4.9) Magnesium Level 1.7 MG/DL (1.8-2.4) Total Bilirubin 0.6 MG/DL (0.2-1.0) Aspartate Amino Transf (AST/SGOT) 41 U/L (15-37) Alanine Aminotransferase (ALT/SGPT) 27 U/L (12-78) Alkaline Phosphatase 162 U/L (46-116) Total Protein 5.0 G/DL (6.4-8.2) Albumin 2.0 G/DL (3.4-5.0) Globulin 3.0 g/dL Albumin/Globulin Ratio 0.7 (1.0-2.7) Height (Feet): 5 Height (Inches): 4.00 Weight (Pounds): 130 Objective General: Awake and alert, nad HEENT: NC/AT. EOMI. Cardiovascular: RRR. S1 and S2 normal. No murmur appreciated Resp: Normal work of breathing. No cough, wheezing or crackles appreciated Abdomen: Abdomen is soft, nondistended. Nontender. Skin: Intact. No abrasions, laceration or rash over the exposed skin MSK: Normal tone and bulk. Moving all extremities. No obvious deformity. Neuro: Awake and alert. Mentating appropriately. Alon Solares MD Jun 17, 2020 06:05
--- NOTE | 2020-06-17 06:12 | NUR ---
NURSE HAND-OFF REPORT: Important Events on Shift: None Patient Status: full code Diet: regular Pending Orders: none Pending Results/Labs: none Pending MD notification: none Latest Vital Signs: Temperature 96.8 , Pulse 76 , B/P 96 /60 , Respiratory Rate 18 , O2 SAT 94 , Nasal Cannula, O2 Flow Rate 3 . Vital Sign Comment: stable throughout shift. EKG Rhythm: Sinus Rhythm Rhythm change?: N MD Notified?:- MD Response: Latest Ortiz Fall Score: 30 Fall Risk: Medium Risk Safety Measures: Call light Within Reach, Bed Alarm Zone 1, Side Rails Side Rails x2, Bed position Low and Locked. Fall Precautions: Patient Fall Education Report to be given to Panchito Perla RN. Will endorse full plan of care and close monitoring.
--- NOTE | 2020-06-17 07:10 | NUR ---
NURSE NOTES: pt is in the bed asleep and arousable. respiration is even and unlabored. denies any pain and discomfort. no acute distress noted at this time.
[2020-06-17 07:53] LABS: BASOPHILS % (AUTO) 0.9 % (0.0-2.0); EOSINOPHILS % (AUTO) 1.3 % (0.0-3.0); HEMATOCRIT 28.6 % (37.0-47.0); HEMOGLOBIN 9.2 G/DL (12.0-16.0); LYMPHOCYTES % (AUTO) 34.6 % (20.0-45.0); MEAN CORPUSCULAR VOLUME 99 FL (80-99); NEUTROPHILS % (AUTO) 52.1 % (45.0-75.0); PLATELET COUNT 285 K/UL (150-450); RED CELL DISTRIBUTION WIDTH 16.5 % (11.6-14.8); WHITE BLOOD COUNT 5.6 K/UL (4.8-10.8)
[2020-06-17 08:00] VITALS: BP 119/51
[2020-06-17] MEDS: Thiamine 100mg tab ORAL SCH (09:19)
--- NOTE | 2020-06-17 09:20 | NUR ---
NURSE NOTES: RN administered AM medications to pt; medications tolerated well, no ASE noted at this time. Pt states "I want to go home now." RN encouraged pt to verbalize her feelings, pt states "I just want to go home." Educated pt about leaving AMA. Encourage pt to stay until MD orders for her discharge. Pt insists that she wants to leave. RN paged Dr. Michel for discharge orders and pt's concern. Awaiting call back.
--- NOTE | 2020-06-17 10:00 | NUR ---
patient verbalized that she wants to go home, informed her that will contact primary care doctor regardign her rewuest, call placed to Dr barfield and message left.
--- NOTE | 2020-06-17 10:04 | NUR ---
RD ASSESSMENT & RECOMMENDATIONS SEE CARE ACTIVITY FOR COMPLETE ASSESSMENT DAILY ESTIMATED NEEDS: Needs based on Borderline underweight, 49kg 25-35 kcals/kg 3974-2420 total kcals 1-1.5 g protein/kg 49-74 g total protein 25-30 mL/kg 9183-1613 total fluid mLs NUTRITION DIAGNOSIS: Increased kcal needs r/t borderline underweight status as evidenced by BMI 18.6. pt @90% of IBW. CURRENT DIET: Regular diet PO DIET RECOMMENDATIONS: As able, Regular/ soft diet ADDITIONAL RECOMMENDATIONS: 1) Maintain daily calibrated bed scale wts 2) Resume D5 w/ pending CLD/ NPO status and current poor po intake Rec Accuchecks for hypoglycemia 3) Monitor lytes daily 4) Add Ensure W/ meals; add Ensure Clear w/ CLD Snacks in b/w meals as tolerated
--- NOTE | 2020-06-17 10:06 | NUR ---
NURSE NOTES: Notified by charge nurse that pt is not in her room. RN approached pt's room, pt not in her room nor bathroom. RN search the whole hallway. pt was not found. hospital security called ext [phone] and made aware. security personnel says they will search around the hospital for pt.
--- NOTE | 2020-06-17 10:15 | NUR ---
NURSE NOTES: Called Dr. Kerr, and made aware. MD ordered to discharge pt AMA.
--- NOTE | 2020-06-17 10:20 | NUR ---
NURSE NOTES: vending stand supervisor called and made aware.
--- NOTE | 2020-06-17 10:37 | NUR ---
NURSE NOTES: Called next of kin, Mati Garcia [phone], number is not available at this time. message is left to voicemail.
--- NOTE | 2020-06-17 10:39 | NUR ---
NURSE NOTES: Called [employer] dispatcher, spoke with a female personnel, she said she will send someone out to come to the hospital.
--- NOTE | 2020-06-17 11:00 | NUR ---
NURSE NOTES: Two (2) [employer] officers arrive to the unit. pt's information given to officers. They said they will go to pt's ddress to look for her.
--- NOTE | 2020-06-17 11:23 | Nephrology Progress Note ---
Assessment/Plan Problem List: (1) Hypokalemia (2) Anemia (3) Electrolyte imbalance (4) Malnutrition Assessment Severe hypokalemia Severe anemia Malnutrition, hypoalbuminemia Low phosphorus low magnesium Plan June 17: PATIENT SEEN AT 9.45 AM- LATE ENTERY. No labs drawn today. Medication list reviewed. Check lab tomorrow. Continue per consultants.Patient wants to go home ! June 16: Labs reviewed. Abnormal electrolytes addressed. Continue per consultants. June 15: Labs reviewed. Abnormal electrolytes and chemistries addressed. Continue per consultants. June 14: Renal parameters stable. Low potassium addressed. Continue per consultants. June 13. Renal parameters and electrolytes now all normalized. Continue per consultants. June 12: Labs reviewed. Electrolyte abnormalities , low phosphorus low magn esium addressed. Continue per consultants. Previously: Replacement of the potassium, magnesium, phosphorus per order Urine for analysis and urine for tox screen Replace folate and thiamine orally Continue to monitor electrolytes and renal parameters Per orders Subjective ROS Limited/Unobtainable: No Interval Events/Complaints wants to go home Constitutional: Reports: malaise Objective Objective Last 24 Hour Vital Signs Date Time Temp Pulse Resp B/P (MAP) Pulse Ox O2 Delivery O2 Flow Rate FiO2 06/17/20 09:00 Room Air 06/17/20 08:00 72 06/17/20 08:00 97.9 69 18 119/51 (73) 96 06/17/20 04:00 76 06/17/20 04:00 96.8 76 18 96/60 (72) 94 06/17/20 00:00 96.3 75 18 100/70 (80) 95 06/17/20 00:00 78 06/16/20 21:00 Room Air 06/16/20 20:00 97.7 71 17 92/67 (75) 95 06/16/20 20:00 71 06/16/20 16:00 83 06/16/20 16:00 98.8 81 18 104/70 (81) 96 06/16/20 12:06 96.7 93 20 98/65 (76) 97 06/16/20 12:00 83 Intake and Output 06/16/20 06/17/20 19:00 07:00 Intake Total 360 ml 260 ml Balance 360 ml 260 ml Intake Oral 360 ml 260 ml # Voids 3 2 Current Medications Medications (Trade) Dose Ordered Sig/He Route PRN Reason Start Time Stop Time Status Last Admin Dose Admin Acetaminophen (Tylenol) 500 mg Q6H PRN ORAL Pain Scale (3-5) 06/11/20 11:30 07/11/20 11:29 06/11/20 12:56 Folic Acid (Folate) 3 mg DAILY ORAL 06/11/20 16:00 07/11/20 15:59 06/17/20 09:19 Pantoprazole (Protonix) 40 mg EVERY 12 HOURS ORAL 06/14/20 09:00 07/14/20 08:59 06/17/20 09:19 Thiamine HCl (Vitamin B1) 100 mg DAILY ORAL 06/11/20 16:00 07/11/20 15:59 06/17/20 09:19 Laboratory Tests 06/17/20 06:35: White Blood Count 5.6, Red Blood Count 2.90L, Hemoglobin 9.2L, Hematocrit 28.6L, Mean Corpuscular Volume 99, Mean Corpuscular Hemoglobin 31.7H, Mean Corpuscular Hemoglobin Concent 32.1, Red Cell Distribution Width 16.5H, Platelet Count 285, Mean Platelet Volume 6.3L, Neutrophils (%) (Auto) 52.1, Lymphocytes (%) (Auto) 34.6, Monocytes (%) (Auto) 11.0H, Eosinophils (%) (Auto) 1.3, Basophils (%) (Auto) 0.9 Height (Feet): 5 Height (Inches): 4.00 Weight (Pounds): 130 General Appearance: no apparent distress Cardiovascular: normal rate Respiratory/Chest: decreased breath sounds Abdomen: soft Objective No change Byron Mosley MD Jun 17, 2020 11:23
--- NOTE | 2020-06-17 11:43 | NUR ---
NURSE NOTES: They two (2) [employer] officers returns to the unit, and notifies RN that they could not find pt at her address. They say they would not file report for a missing person because pt is alert and oriented x 4 with no behavioral history nor dementia.
--- NOTE | 2020-06-17 13:19 | Cardiac Electrophysiology PN ---
Assessment/Plan Assessment/Plan 1. Bradycardia. Ruled out for [place]. 2. Severe anemia, hemoglobin 7.4. S/P EGD and colonoscopy 06/14/20 EGD: - 4-5 cm hiatal hernia - mild peptic stricture - mild erosive duodenitis Colon: - moderate scattered diverticulosis - 4-5 cm proximal ascending colon mass - likely large villous adenoma, r/o colon CA per Dr. Faust CEA 18 3. ETOH use, on thiamine and folate. 4. History of hypertension. 5. Severe hypokalemia Eloped DW RN and security Subjective Subjective S/P EGD and colonoscopy . Eloped earlier with the monitor on. Objective Last 24 Hour Vital Signs Date Time Temp Pulse Resp B/P (MAP) Pulse Ox O2 Delivery O2 Flow Rate FiO2 06/17/20 09:00 Room Air 06/17/20 08:00 72 06/17/20 08:00 97.9 69 18 119/51 (73) 96 06/17/20 04:00 76 06/17/20 04:00 96.8 76 18 96/60 (72) 94 06/17/20 00:00 96.3 75 18 100/70 (80) 95 06/17/20 00:00 78 06/16/20 21:00 Room Air 06/16/20 20:00 97.7 71 17 92/67 (75) 95 06/16/20 20:00 71 06/16/20 16:00 83 06/16/20 16:00 98.8 81 18 104/70 (81) 96 Intake and Output 06/16/20 06/17/20 19:00 07:00 Intake Total 360 ml 260 ml Balance 360 ml 260 ml Intake Oral 360 ml 260 ml # Voids 3 2 Laboratory Tests Test 06/17/20 06:35 White Blood Count 5.6 K/UL (4.8-10.8) Red Blood Count 2.90 M/UL (4.20-5.40) L Hemoglobin 9.2 G/DL (12.0-16.0) L Hematocrit 28.6 % (37.0-47.0) L Mean Corpuscular Volume 99 FL (80-99) Mean Corpuscular Hemoglobin 31.7 PG (27.0-31.0) H Mean Corpuscular Hemoglobin Concent 32.1 G/DL (32.0-36.0) Red Cell Distribution Width 16.5 % (11.6-14.8) H Platelet Count 285 K/UL (150-450) Mean Platelet Volume 6.3 FL (6.5-10.1) L Neutrophils (%) (Auto) 52.1 % (45.0-75.0) Lymphocytes (%) (Auto) 34.6 % (20.0-45.0) Monocytes (%) (Auto) 11.0 % (1.0-10.0) H Eosinophils (%) (Auto) 1.3 % (0.0-3.0) Basophils (%) (Auto) 0.9 % (0.0-2.0) Objective HEAD AND NECK: No JVD. LUNGS: Clear. CARDIOVASCULAR: Regular S1 and S2 with no gallop or murmur. ABDOMEN: Soft. EXTREMITIES: No pitting edema. Gil Garcia MD Jun 17, 2020 13:19
--- NOTE | 2020-06-17 13:25 | NUR ---
NURSE NOTES: Daughter, Radha Thorne, returns call, says "I will call her house where she lives to see if she is there," "thank you for your notification."
--- NOTE | 2020-06-17 14:09 | Cardiac Electrophysiology PN ---
Assessment/Plan Assessment/Plan 1. Bradycardia. Ruled out for [place]. 2. Severe anemia, hemoglobin 7.4. S/P EGD and colonoscopy 06/14/20 EGD: - 4-5 cm hiatal hernia - mild peptic stricture - mild erosive duodenitis Colon: - moderate scattered diverticulosis - 4-5 cm proximal ascending colon mass - likely large villous adenoma, r/o colon CA per Dr. Faust CEA 18 3. ETOH use, on thiamine and folate. 4. History of hypertension. 5. Severe hypokalemia Eloped and then brought back to ER DW RN and security Subjective Subjective S/P EGD and colonoscopy . Eloped earlier with the monitor on. Found on the street and brought back to ER. Refusing to get admitted! Objective Last 24 Hour Vital Signs Date Time Temp Pulse Resp B/P (MAP) Pulse Ox O2 Delivery O2 Flow Rate FiO2 06/17/20 09:00 Room Air 06/17/20 08:00 72 06/17/20 08:00 97.9 69 18 119/51 (73) 96 06/17/20 04:00 76 06/17/20 04:00 96.8 76 18 96/60 (72) 94 06/17/20 00:00 96.3 75 18 100/70 (80) 95 06/17/20 00:00 78 06/16/20 21:00 Room Air 06/16/20 20:00 97.7 71 17 92/67 (75) 95 06/16/20 20:00 71 06/16/20 16:00 83 06/16/20 16:00 98.8 81 18 104/70 (81) 96 Intake and Output 06/16/20 06/17/20 19:00 07:00 Intake Total 360 ml 260 ml Balance 360 ml 260 ml Intake Oral 360 ml 260 ml # Voids 3 2 Laboratory Tests Test 06/17/20 06:35 White Blood Count 5.6 K/UL (4.8-10.8) Red Blood Count 2.90 M/UL (4.20-5.40) L Hemoglobin 9.2 G/DL (12.0-16.0) L Hematocrit 28.6 % (37.0-47.0) L Mean Corpuscular Volume 99 FL (80-99) Mean Corpuscular Hemoglobin 31.7 PG (27.0-31.0) H Mean Corpuscular Hemoglobin Concent 32.1 G/DL (32.0-36.0) Red Cell Distribution Width 16.5 % (11.6-14.8) H Platelet Count 285 K/UL (150-450) Mean Platelet Volume 6.3 FL (6.5-10.1) L Neutrophils (%) (Auto) 52.1 % (45.0-75.0) Lymphocytes (%) (Auto) 34.6 % (20.0-45.0) Monocytes (%) (Auto) 11.0 % (1.0-10.0) H Eosinophils (%) (Auto) 1.3 % (0.0-3.0) Basophils (%) (Auto) 0.9 % (0.0-2.0) Objective HEAD AND NECK: No JVD. LUNGS: Clear. CARDIOVASCULAR: Regular S1 and S2 with no gallop or murmur. ABDOMEN: Soft. EXTREMITIES: No pitting edema. Gil Garcia MD Jun 17, 2020 14:09
--- NOTE | 2020-06-17 15:18 | NUR ---
INSURANCE CLINICALS FAXED TO [facility] PH#[phone] FAX# [phone]
--- NOTE | 2020-06-17 22:36 | General Progress Note ---
Subjective Allergies: Coded Allergies: No Known Allergies (Unverified , 06/10/20) Subjective patient seen early am today now discharged at time of writing this note this am d/w patient re colonoscopy results and CT results path result not available at time of am visit this am colonoscopy results also d/w DTR last week DTR is a health practitioner at [facility] advised that lesion in situ and needs to be resected, either by EMR colonoscopy or partial colectomy possibility of malignant transformation in the mass outlined Objective Last 24 Hour Vital Signs Date Time Temp Pulse Resp B/P (MAP) Pulse Ox O2 Delivery O2 Flow Rate FiO2 06/17/20 09:00 Room Air 06/17/20 08:00 72 06/17/20 08:00 97.9 69 18 119/51 (73) 96 06/17/20 04:00 76 06/17/20 04:00 96.8 76 18 96/60 (72) 94 06/17/20 00:00 96.3 75 18 100/70 (80) 95 06/17/20 00:00 78 Intake and Output 06/16/20 06/17/20 19:00 07:00 Intake Total 360 ml 260 ml Balance 360 ml 260 ml Intake Oral 360 ml 260 ml # Voids 3 2 Laboratory Tests 06/17/20 06:35: White Blood Count 5.6, Red Blood Count 2.90L, Hemoglobin 9.2L, Hematocrit 28.6L, Mean Corpuscular Volume 99, Mean Corpuscular Hemoglobin 31.7H, Mean Corpuscular Hemoglobin Concent 32.1, Red Cell Distribution Width 16.5H, Platelet Count 285, Mean Platelet Volume 6.3L, Neutrophils (%) (Auto) 52.1, Lymphocytes (%) (Auto) 34.6, Monocytes (%) (Auto) 11.0H, Eosinophils (%) (Auto) 1.3, Basophils (%) (Auto) 0.9 Height (Feet): 5 Height (Inches): 4.00 Weight (Pounds): 130 Objective Thin woman NCAT supple CTA RR abd soft no edema Assessment/Plan Status: progressing Assessment/Plan: Assessment - Anemia - Ascending colon mass - elevated CEA - OB (-) stools - H/o HTN - Hypokalemia - corrected Recommendations - needs to see PMD as outpatient and be referred to surgeon or tertiary care center for EMR colonoscopy Ezekiel Abraham MD Jun 17, 2020 22:36
--- NOTE | 2020-06-18 20:34 | General Progress Note ---
Subjective Allergies: Coded Allergies: No Known Allergies (Unverified , 06/10/20) Subjective PHONE CALL DOCUMENTATION Patient and daughter contacted today on the phone. A three way conversation was held. Results of labs, including elevated CEA, and results of GI biopsies explained. All questions and concerns where addressed. It was clearly explained and emphasized that there is a high concern for malignancy given elevated CEA, and that the colonic mass would be highest on the differential as the source. Advised that negative GI biopsies for definitive carcinoma does not rule out malignancy within the large mass. Advised patient to get an urgent referral from her PMD to an oncologist and to a general surgeon. Advised patient that a definitive surgical resection of the tumor would allow the best full evaluation of the depth and extent of lesion, and a determination of whether it has a focus of CA. I advised them that I would be available if they need any further information, but that from here on the main roles would by in hands of a surgeon and an oncologist. Ezekiel Abraham MD Objective Height (Feet): 5 Height (Inches): 4.00 Weight (Pounds): 130 Assessment/Plan Status: progressing Ezekiel Abraham MD Jun 18, 2020 20:34
--- NOTE | 2020-06-19 13:11 | Discharge Summary ---
Discharge Summary Discharge Summary _ Date of admission: 06/10/2020 Patient left AGAINST MEDICAL ADVICE on 06/17/2020 History of Present Illness and Brief Hospital Course Ms. Thorne is a 52-year-old female with past medical history of hypertension who presented to ED for evaluation of generalized weakness for a few days. Chest x-ray did not show obvious infiltrates. Patient was found to be anemic with a hemoglobin of 7.4. Patient denied any history of anemia. Patient was admitted to the hospital for further management of her anemia. Patient received transfusion and her H&H improved and remained stable. She underwent endoscopy which revealed hiatal hernia, mild peptic stricture, and mild erosive duodenitis. She also underwent colonoscopy which revealed moderate scattered diverticulosis, proximal ascending colon mass likely large villous adenoma. The CEA was 18.6. The biopsied tissue from duodenum, duodenal bulb, antrum, and ascending colon were all negative for dysplasia or malignancy. However, negative GI biopsies for definitive carcinoma does not rule out malignancy within the large mass. Patient was advised that a definitive surgical resection of the tumor would allow the best for evaluation of the depth and extent of the lesion and a determination of whether it has a focus of cancer. Patient was advised to follow-up with a surgeon and an oncologist as an outpatient. On 06/17/2020, she was not found in the room or the restroom. The computer security specialist and the hospital staff searched for the patient in the hospital. [employer] officers were contacted to search the patient at her registered address. She was not there. Patient's daughter was contacted who stated that she would call her mother. Patient eloped. Missing person report was not filed by [employer] officers because patient was alert and oriented x4 with no behavioral history or dementi a. Consultants: Cardiology Dr. Garcia Gastroenterology Dr. Abraham Nephrology Dr. Manning Hematology oncology Dr. Solares Final diagnoses Bradycardia Anemia Hiatal hernia Peptic stricture Erosive duodenitis Diverticulosis Colon mass Hypokalemia Electrolyte imbalance Malnutrition I have been assigned to dictate discharge summary for this account. I was not involved in the patient's management Urban Parikh Jun 19, 2020 13:11
--- NOTE | 2020-06-20 09:35 | Endoscopy Procedure Note ---
Endoscopy Procedure Note General Indication for Procedure: anemia Procedures Performed: EGD, colonoscopy Operative Findings/Diagnosis: colon mass aaron Specimen: yes Pt Tolerated Procedure Well: Yes Estimated Blood Loss: none Anesthesia Anesthesiologist: see report Anesthesia: MAC, moderate sedation Medications Medication Given: see anesthesia record Inserted Devices Implant(s) used?: No GI Core Measures 50 yrs or older w/o bx or poly: Not Applicable 10yrs. F/U recommended: Not Applicable Ezekiel Abraham MD Jun 20, 2020 09:35
--- NOTE | 2020-06-20 09:36 | Brief Operative Note ---
Immediate Post Operative Note Operative Note Chief Complaint: anemia Pre-op Diagnosis: anemia Procedure: esophagogastroduodenoscopy colon Post-op Diagnosis: POST PROCEDURE ADDENDUM EGD: - 4-5 cm hiatal hernia - mild peptic stricture - mild erosive duodenitis Colon: - moderate scattered diverticulosis - 4-5 cm proximal ascending colon mass - likely large villous adenoma, r/o colon CA (multiple bx and tattoo) Surgeon: naga Specimen: yes Complications: none Fluids: per anesthesia Implant(s) used?: No Ezekiel Abraham MD Jun 20, 2020 09:36
--- NOTE | 2020-06-20 09:44 | NUR ---
INSURANCE DC SUMMARY FAXED TO [facility]#[phone] fax#[phone]
--- NOTE | 2020-06-20 11:14 | Operative Note - Dictated ---
DATE OF OPERATION: 06/14/2020 GASTROENTEROLOGY PROCEDURE PROCEDURE: Upper gastrointestinal endoscopy with biopsy as well as colonoscopy with biopsy. SURGEON: Ezekiel Abraham MD. ANESTHESIA: Please see the separate anesthesiologist notes for details. PRE-ENDOSCOPIC DIAGNOSIS: Anemia. POST-ENDOSCOPIC DIAGNOSES: 1. A 4 to 5 cm hiatal hernia. 2. Mild peptic stricture. 3. Mild erosive duodenitis. 4. Scattered diverticulosis. 5. A 4 to 5 cm proximal ascending colon mass, likely a large villous adenoma, status post biopsy. DESCRIPTION OF PROCEDURE: The procedure, its risks, indications, alternatives, and possible complications were explained to the patient and informed consent was obtained. The patient was then sedated in the left lateral decubitus position. A diagnostic upper endoscope was introduced into oropharynx and advanced to the duodenum without difficulty. The endoscope was then gradually withdrawn and mucosa examined carefully. The colonoscope was then introduced into the rectum and advanced to the cecum without difficulty. The colonoscope was then gradually withdrawn and mucosa examined carefully. Findings were as listed above. Biopsies of the antrum as well as colonic masses were sent to pathology for review. The colonic mass appeared to be a 4 to 5 cm mass on a broad neck. The neck was short and the mass was from biopsies. All specimens were sent to pathology for review. ASSESSMENT: This examination is most notable for smooth mild peptic stricture, which did allow the endoscope to go through. There were no ulcerations. However, the patient should be treated with long-term acid suppression. If she had Helicobacter pylori on her gastric biopsies then that should be treated. The colonic mass is worrisome for at least an advanced villous adenoma of the colon, which could explain the low potassium level see in this patient, relatively an early carcinoma. The lesion will need to be resected either endoscopically or by surgical resection based on pathology results and CEA evaluation. RECOMMENDATIONS: 1. Followup biopsy results. 2. Followup laboratory parameters. PLAN: Resection at a later date. Ezekiel Abraham M.D. DR: SARAI JOB#: [id number] CC:
== END 2020-06-17 10:06 | disposition left against medical advice (07) | DRG 425 ==
LOC: EDBD 17:45 → EMR 18:52 → EDBEDREQ 19:25 → EDBEDREQSVC 19:25 → 2E 20:22 → EDBEDREQ 20:33
PROC: 30233N1 Transfusion of Nonautologous Red Blood Cells into Peripheral Vein, Percutaneous Approach (ICD-10-PCS; principal; 2020-06-11)
PROC: 0DB78ZX Excision of Stomach, Pylorus, Via Natural or Artificial Opening Endoscopic, Diagnostic (ICD-10-PCS; 2020-06-14 15:05)
PROC: 0DBK8ZX Excision of Ascending Colon, Via Natural or Artificial Opening Endoscopic, Diagnostic (ICD-10-PCS; 2020-06-14 15:05)
DX: E87.6 Hypokalemia (principal); D64.9 Anemia, unspecified; E46 Unspecified protein-calorie malnutrition; Z87.891 Personal history of nicotine dependence; F10.11 Alcohol abuse, in remission; I10 Essential (primary) hypertension; E87.8 Other disorders of electrolyte and fluid balance, not elsewhere classified; K44.9 Diaphragmatic hernia without obstruction or gangrene; K57.90 Diverticulosis of intestine, part unspecified, without perforation or abscess without bleeding; K29.80 Duodenitis without bleeding; K63.9 Disease of intestine, unspecified; E83.39 Other disorders of phosphorus metabolism; E83.42 Hypomagnesemia; R00.1 Bradycardia, unspecified; K22.2 Esophageal obstruction; Z80.0 Family history of malignant neoplasm of digestive organs
CPT/HCPCS: 36415; 45381; 71045; 74176; 80048; 80053; 80061; 80307; 81001; 82270; 82378; 82607; 82728; 82746; 83540; 83550; 83690; 83735; 83880; 84100; 84443; 84484; 84550; 85007; 85025; 86140; 86850; 86900; 86901; 86920; 87086; 93005; 93306; 94003; 94150; 96365; 99291; G0480; J8499